=== PATIENT | male | born 1960 | race Caucasian/White ===

== ENCOUNTER → 2019-12-18 | Outpatient (REF) | payer OTHER, MEDICAID ==
[2019-12-18 18:46] LABS: BASO % 0.6 % (0.0-1.0); EOS # 0.1 10^3/uL (0.0-0.5); EOS % 1.1 % (0.0-3.0); HEMATOCRIT 43.9 % (42.0-52.0); HEMOGLOBIN 14.4 g/dl (13.5-17.5); LYMPH # 1.4 10^3/uL (1.5-5.0); LYMPH % 19.7 % (24.0-44.0); MEAN CORPUSCULAR HEMOGLOBIN 30.3 pg (27.0-33.0); MEAN CORPUSCULAR HGB CONC 32.8 g/dl (32.0-36.5); MEAN CORPUSCULAR VOLUME 92.2 fl (80.0-96.0); MONO # 0.7 10^3/uL (0.0-0.8); MONO % 9.7 % (0.0-5.0); NEUTROPHILS # 4.9 10^3/uL (1.5-8.5); NEUTROPHILS % 68.6 % (36.0-66.0); PLATELET COUNT, AUTOMATED 246 10^3/uL (150-450); RED BLOOD COUNT 4.76 10^6/uL (4.30-6.10); WHITE BLOOD COUNT 7.1 10^3/uL (4.0-10.0)
[2019-12-18 18:56] LABS: ALBUMIN 3.9 GM/DL (3.2-5.2); BILIRUBIN,TOTAL 0.5 MG/DL (0.2-1.0); CALCIUM LEVEL 9.2 MG/DL (8.5-10.1); CHOLESTEROL RISK RATIO 3.684 (<5); CREATININE FOR GFR 1.38 MG/DL (0.70-1.30); GLOMERULAR FILTRATION RATE 56.5 (>56); POTASSIUM SERUM 3.7 MEQ/L (3.5-5.1); TOTAL PROTEIN 7.8 GM/DL (6.4-8.2)
[2019-12-18 19:10] LABS: HEMOGLOBIN A1c 8.4 %
[2019-12-18 21:22] LABS: TOTAL 25(OH) VITAMIN D 51.2 NG/ML (30.0-100.0)
== END ==
LOC: M LAB REF 17:22
PROVIDERS: ATTEND Physician Assistant
DX: E55.9 Vitamin D deficiency, unspecified (principal); E11.9 Type 2 diabetes mellitus without complications; I10 Essential (primary) hypertension

== ENCOUNTER 2020-08-01 13:02 | Inpatient (IN) | payer MEDICAID, OTHER ==
[2020-08-01] MEDS ORDERED: LIDOCAINE 2% 5ML JELLY UROJET TOP ONE (13:30)
--- NOTE | 2020-08-01 13:30 | REP ---
INDICATION: ams COMPARISON: None. TECHNIQUE: Axial noncontrast images from the skull base to the thoracic inlet with coronal reformations. This CT examination was performed using the following dose reduction techniques: Automated exposure control, adjustment of mA and/or kv according to the patient's size, and use of iterative reconstruction technique. FINDINGS: Age-related changes including periventricular leukomalacia appreciated. The ventricles and sulci are symmetric. Lawrence-white differentiation is maintained. There is no evidence for acute intracranial hemorrhage, mass/mass effect, pathology or infarction. No extra-axial fluid collection. Calvarium is intact. Paranasal sinuses and mastoid air cells are clear. IMPRESSION: Atrophy and microvascular ischemic changes. No acute intracranial hemorrhage, infarction, or mass/mass effect. <Electronically signed by Donato Yen > 08/01/20 [id number]
[2020-08-01 13:39] LABS: BASO % 0.2 % (0.0-1.0); HEMATOCRIT 42.2 % (42.0-52.0); HEMOGLOBIN 13.7 g/dl (13.5-17.5); LYMPH # 0.5 10^3/uL (1.5-5.0); LYMPH % 5.7 % (24.0-44.0); MEAN CORPUSCULAR HEMOGLOBIN 29.8 pg (27.0-33.0); MEAN CORPUSCULAR HGB CONC 32.5 g/dl (32.0-36.5); MEAN CORPUSCULAR VOLUME 91.9 fl (80.0-96.0); MONO # 0.6 10^3/uL (0.0-0.8); MONO % 6.4 % (2.0-8.0); NEUTROPHILS # 8.2 10^3/uL (1.5-8.5); NEUTROPHILS % 87.4 % (36.0-66.0); PLATELET COUNT, AUTOMATED 176 10^3/uL (150-450); RED BLOOD COUNT 4.59 10^6/uL (4.30-6.10); WHITE BLOOD COUNT 9.3 10^3/uL (4.0-10.0)
[2020-08-01] MEDS ORDERED: levETIRAcetam INJection 1,000 MG in D5W 100 ML IV ONE (14:05)
[2020-08-01 14:08] LABS: CK-MB VALUE MASS < 1.0 NG/ML (<3.6); CPK CREATINE PHOSPHOKINASE 63 U/L (39-308); MB/CK RELATIVE INDEX 1.59 (< OR =4); NT-PRO BNP 487 PG/ML (<125); TROPONIN I < 0.02 NG/ML (< 0.10)
[2020-08-01 14:17] LABS: AMPHETAMINES LEVEL URINE NEGATIVE (NEGATIVE); BARBITURATES URINE NEGATIVE (NEGATIVE); BENZODIAZEPINES URINE NEGATIVE (NEGATIVE); CANNABINOIDS URINE NEGATIVE (NEGATIVE); COCAINE METABOLITE URINE NEGATIVE (NEGATIVE); METHADONE URINE NEGATIVE (NEGATIVE); OPIATES URINE NEGATIVE (NEGATIVE); PHENCYCLIDINE URINE NEGATIVE (NEGATIVE)
[2020-08-01 14:17] LABS: ACETAMINOPHEN LEVEL < 2.0 UG/ML (10.0-30.0); ALBUMIN 3.1 GM/DL (3.2-5.2); ALT/SGPT 55 U/L (12-78); BILIRUBIN,DIRECT 0.2 MG/DL (0.0-0.2); BILIRUBIN,TOTAL 0.8 MG/DL (0.2-1.0); BLOOD UREA NITROGEN 12 MG/DL (7-18); CALCIUM LEVEL 8.6 MG/DL (8.5-10.1); CARBON DIOXIDE LEVEL 31 MEQ/L (21-32); CHLORIDE LEVEL 95 MEQ/L (98-107); CREATININE FOR GFR 1.11 MG/DL (0.70-1.30); ETHYL ALCOHOL (ETHANOL) < 0.003 % (0.000-0.010); GLOMERULAR FILTRATION RATE > 60.0 (>56); GLUCOSE, FASTING 465 MG/DL (70-100); POTASSIUM SERUM 3.3 MEQ/L (3.5-5.1); SODIUM LEVEL 136 MEQ/L (136-145); TOTAL PROTEIN 6.6 GM/DL (6.4-8.2)
[2020-08-01] MEDS ORDERED: LORazepam 2 MG/ML VIAL IV STA (14:21)
[2020-08-01] MEDS ORDERED: LORazepam 2 MG/ML VIAL As Ordered ONE (14:23)
[2020-08-01] MEDS ORDERED: METF10004 PO (14:35)
[2020-08-01] MEDS ORDERED: TORS20TA2 PO (14:35)
[2020-08-01] MEDS ORDERED: TRIA75TA PO (14:35)
[2020-08-01] MEDS ORDERED: VITA200044 PO (14:35)
[2020-08-01] MEDS ORDERED: METO1TAB33 PO (14:35)
[2020-08-01] MEDS ORDERED: ELIQ5TAB PO (14:35)
[2020-08-01] MEDS ORDERED: PANT40TA29 PO (14:35)
[2020-08-01] MEDS ORDERED: ATOR40TA75 PO (14:35)
--- NOTE | 2020-08-01 14:49 | REP ---
INDICATION: AMS COMPARISON: None. TECHNIQUE: Portable AP view of the chest FINDINGS: The mediastinum and cardiac silhouette are within normal limits for portable technique. The lung lu are clear without acute consolidation, effusion, or pneumothorax. Skeletal structures are intact. IMPRESSION: No acute cardiopulmonary process appreciated. <Electronically signed by Donato Yen > 08/01/20 [id number]
[2020-08-01] MEDS ORDERED: DEXTROSE 50% 50 ML SYRINGE IV PRN (16:20)
[2020-08-01] MEDS ORDERED: GLUCOSE 4GM CHEW TABLET PO PRN (16:20)
[2020-08-01] MEDS ORDERED: LORazepam 2 MG/ML VIAL IV PRN (16:20)
[2020-08-01] MEDS ORDERED: GLUCAGON INJ 1MG VIAL SC PRN (16:20)
[2020-08-01 16:30] VITALS: BP 147/85
[2020-08-01 16:50] VITALS: BP 147/85
[2020-08-01] MEDS ORDERED: POTASSIUM CHLORIDE 10 MEQ SR TABLET PO ONE (17:05)
[2020-08-01] MEDS: HumaLOG INSULIN (NovoLOG) PER UNIT SC SCH ×2 (17:53→21:25)
--- NOTE | 2020-08-01 18:19 | HPEPDOC ---
General Date of Admission Aug 01, 2020 at 13:03 Date of Service: Aug 01, 2020 Chief Complaint The patient is a 60-year-old male admitted with a reason for visit of New Onset Seizure. Source: Family, RN/MD History of Present Illness 60-year-old male with past medical history of diabetes, hypertension, hyperlipidemia, A. fib, congestive heart failure presented to the ED with 5 days history of altered mental status. On July 27 patient got his Moderna COVID vaccine since then son noticed him to be behaving abnormally. He was having a loopy behavior. Son felt that he was just tired. Son described that on the day he got his vaccine. He stooled in the kitchen for 2 hours looking at a bowl of mac & cheese. He described in this past few days, he would be talking normally and then suddenly he would not respond and stare at the lucas then come back to himself. Yesterday patient was talking with his sister on the phone and suddenly put down the phone and was staring straight ahead. Son picked up the phone and the patient's sister was still on the line talking. This morning son noticed that the patient's left side of the face was swollen. Patient told the son that he fell down at night. Patient also reported that he had "pissed" on the microwave and had "shit" on himself. Son checked the microwave and he did see a pool of liquid on on top of it. Son then called the EMS. EMS found his blood sugar to be 544. Son did not know if the patient was taking his medications or not. Patient was brought to the ED for altered mental status. As per EMS, patient had an absence seizure like episode in the ambulance. He just stopped talking and stared straight ahead did not respond, then within about 2 minutes he was back to his normal self. In the ED, he had 2 similar episodes when he stopped talking and looked to the left and then look to the right. His breathing stopped briefly and his pulse rate went up. He was admitted for multiple seizure episodes. I could not get much relevant history from the patient. He was talking during my interview and was able to tell me that he has diabetes and he takes water pills, so he has to urinate every 5 minutes and that he often has some fluid-filled blisters on his legs. He was keeping his eyes closed. He did follow commands, but he was rambling on about unrelated things also. He does not remember if he has been taking his medications are not. He had gotten Ativan in the emergency room. All the history is taken from ED physician and the from son. Home Medications Scheduled Apixaban (Eliquis) 5 Mg Tablet, 5 MG PO BID, (Reported) 0800/1700 Atorvastatin Calcium (Atorvastatin Calcium) 40 Mg Tablet, 40 MG PO QHS, (Reported) Cholecalciferol (Vitamin D3) (Vitamin D3) 50 Mcg Capsule, 50 MCG PO DAILY, (Reported) Metformin HCl (Metformin HCl) 1,000 Mg Tablet, 1,000 MG PO QPM, (Reported) Metoprolol Succinate (Metoprolol Succinate) 100 Mg Tab.er.24h, 100 MG PO QPM, (Reported) Pantoprazole Sodium (Pantoprazole Sodium) 40 Mg Tablet.dr, 40 MG PO BID, (Reported) 0800/1700 Torsemide (Torsemide) 20 Mg Tablet, 20 MG PO DAILY, (Reported) Triamterene/Hydrochlorothiazid (Triamterene-Hctz 75-50 mg Tab) 1 Each Tablet, 1 TAB PO DAILY, (Reported) Allergies Coded Allergies: No Known Allergies (Unverified , 08/01/20) Past Medical History Medical History Diabetes CHF HLD Irregular heart beat. Likely Afib HTN GERD Family History Significant Family History: Diabetes (sister and mother) Social History * Smoker: non-smoker Alcohol: Denies Drugs: denies A-FIB/CHADSVASC A-FIB History Current/History of A-Fib/PAF?: Yes Current PO Anticoag Therapy: Yes Review of Systems Constitutional: Denies: Chills, Fever, Night Sweats ENT: Reports: Other Symptoms (swelling of left side of face) Skin: Reports: Lesions (healed ulcers on the legs) Pulmonary: Denies: Dyspnea, Cough Cardiovascular: Reports: Edema; Denies: Chest Pain, Palpitations, Orthopnea, Paroxysmal Noc. Dyspnea, Lt Headedness Gastrointestinal: Denies: Nausea, Vomiting, Abdominal Pain, Diarrhea Genitourinary: Reports: Incontinence; Denies: Dysuria, Frequency, Retention Hematologic: Denies: Bruising, Bleeding Excessively Neurological: Reports: Confusion, Seizures Physical Examination General Exam: Positive: Cooperative, No Acute Distress, Other (confused) ENT Exam: Positive: Mucous membr. moist/pink, Other ENT (swelling of the left forehead and left cheeck) Neck Exam: Positive: Supple Chest Exam: Positive: Clear to auscultation, Normal air movement Heart Exam: Positive: Rate Normal, Regular Rhythm, Normal S1, Normal S2; Negative: Murmurs, Rubs Abdomen Exam: Positive: Normal bowel sounds, Soft, Other (obese); Negative: Tenderness Extremity Exam: Positive: Edema; Negative: Clubbing, Cyanosis Neuro Exam: Positive: Strength at 5/5 X4 ext, Normal Tone Vital Signs Vital Signs Date Time Temp Pulse Resp B/P (MAP) Pulse Ox O2 Delivery O2 Flow Rate FiO2 08/01/20 16:30 98.2 92 18 147/85 (105) 96 Room Air Laboratory Data Labs 24H Laboratory Tests 2 08/01/20 13:20: Bedside Glucose (Misc Panel) 481H 08/01/20 13:29: Immature Granulocyte % (Auto) 0.3, Neutrophils (%) (Auto) 87.4H, Lymphocytes (%) (Auto) 5.7L, Monocytes (%) (Auto) 6.4, Eosinophils (%) (Auto) 0.0, Basophils (%) (Auto) 0.2, Neutrophils # (Auto) 8.2, Lymphocytes # (Auto) 0.5L, Monocytes # (Auto) 0.6, Eosinophils # (Auto) 0.0, Basophils # (Auto) 0.0, Nucleated Red Blood Cells % (auto) 0.0, POC pH (Misc Panel) 7.449, POC Base Excess (Misc Panel) 7.0H, POC Saturated Percent O2 (Misc) 100H, POC pO2 (Misc Panel) 281.0H, POC pCO2 (Misc Panel) 44.3, POC HCO3 (Misc Panel) 30.7H, POC Total CO2 (Misc Panel) 32.0H, Anion Gap 10, Glomerular Filtration Rate > 60.0, Calcium Level 8.6, Total Bilirubin 0.8, Direct Bilirubin 0.2, Aspartate Amino Transf (AST/SGOT) 18, Alanine Aminotransferase (ALT/SGPT) 55, Alkaline Phosphatase 92, Total Creatine Kinase 63, Creatine Kinase MB < 1.0, Creatine Kinase MB Relative Index 1.59, Troponin I < 0.02, WG-Mgc-T-Type Natriuretic Peptide 487H, Total Protein 6.6, Albumin 3.1L, Albumin/Globulin Ratio 0.9, Thyroid Stimulating Hormone (TSH) 1.520, Acetaminophen Level < 2.0L, Ethyl Alcohol Level < 0.003 08/01/20 13:35: Urine Color STRAW, Urine Appearance CLEAR, Urine pH 5.0, Urine Specific [place] 1.039, Urine Protein 2+H, Urine Glucose (UA) 3+H, Urine Ketones TRACEH, Urine Blood 1+H, Urine Nitrite NEGATIVE, Urine Bilirubin NEGATIVE, Urine Urobilinogen 0.2, Urine Leukocyte Esterase NEGATIVE, Urine WBC (Auto) 1, Urine RBC (Auto) 1, Urine Hyaline Casts (Auto) 0, Urine Bacteria (Auto) NEGATIVE, Urine Squamous Epithelial Cells 0, Urine Mucus (Auto) SMALL, Urine Sperm (Auto) , Urine Opiates Screen NEGATIVE, Urine Methadone Screen NEGATIVE, Urine Barbiturates Screen N EGATIVE, Urine Phencyclidine Screen NEGATIVE, Urine Amphetamines Screen NEGATIVE, Urine Benzodiazepines Screen NEGATIVE, Urine Cocaine Metabolite Screen NEGATIVE, Urine Cannabinoids Screen NEGATIVE 08/01/20 16:43: Bedside Glucose (Misc Panel) 412H CBC/BMP Laboratory Tests 08/01/20 13:29 Microbiology Microbiology 08/01/20 Respiratory Virus Panel (PCR) (JANINA) - Final, Complete Assessment/Plan 60-year-old male with past medical history of diabetes, hypertension, hyperlipidemia, A. fib, congestive heart failure presented to the ED with 5 days history of altered mental status. On July 27 patient got his Moderna COVID vaccine since then son noticed him to be behaving abnormally. He was having a loopy behavior. Son felt that he was just tired. Son described that on the day he got his vaccine. He stooled in the kitchen for 2 hours looking at a bowl of mac & cheese. He described in this past few days, he would be talking normally and then suddenly he would not respond and stare at the lucas then come back to himself. Yesterday patient was talking with his sister on the phone and suddenly put down the phone and was staring straight ahead. Son picked up the phone and the patient's sister was still on the line talking. This morning son noticed that the patient's left side of the face was swollen. Patient told the son that he fell down at night. Patient also reported that he had "pissed" on the micro wave and had "shit" on himself. Son checked the microwave and he did see a pool of liquid on on top of it. Son then called the EMS. EMS found his blood sugar to be 544. Son did not know if the patient was taking his medications or not. Patient was brought to the ED for altered mental status. As per EMS, patient had an absence seizure like episode in the ambulance. He just stopped talking and stared straight ahead did not respond, then within about 2 minutes he was back to his normal self. In the ED, he had 2 similar episodes when he stopped talking and looked to the left and then look to the right. His breathing stopped briefly and his pulse rate went up. He was admitted for multiple seizure episodes. Multiple short Absence seizure like episodes With acute metabolic encephalopathy, post ictal No tonic-clonic activity seen Received Keppra and and Ativan in the ED after coming up to the floor. He had another episode Started him on valproate 500mg bid This plan was discussed with Dr. Morel by the ED physician and Me Ordered for EEG and MRI CT head negative Diabetes Sugar uncontrolled. Likely patient was not taking his medications Will give Levemir and lispro Fingersticks before meals and HS Hypertension Continue medical Likely congestive heart failure Will hold diuretics for the present likely a fib Will continue metoprolol and eliquis Will have to get the history from PMDs office Plan / VTE VTE Prophylaxis Ordered?: Yes TEJAS BECKHAM MD Aug 01, 2020 18:19
[2020-08-01] MEDS: KCL 10MEQ/100ML SWI (KRUN) 10 MEQ in IV 1 EA IV SCH ×2 (18:51→20:05)
[2020-08-01] MEDS ORDERED: PHENYTOIN 100 MG/2 ML VIAL (J1165) IV SCH (19:00)
[2020-08-01] MEDS: PANTOPRAZOLE 40MG TAB (PROTONIX) PO SCH (21:00)
[2020-08-01] MEDS: ATORVASTATIN 20 MG TAB PO SCH (21:00)
[2020-08-01] MEDS: LEVEMIR (INSULIN DETEMIR) 1 UNITS/0.01ML SC SCH ×2 (21:00→22:23)
[2020-08-01] MEDS ORDERED: APIXABAN 5 MG TAB (ELIQUIS) PO SCH (21:00)
[2020-08-01] MEDS: METOPROLOL SUCC (TopROL XL) 100MG *XL* TAB PO SCH (21:00)
[2020-08-01] MEDS: VALPROATE SOD INJ 500 MG in D5W 50 ML IV SCH (21:11)
[2020-08-01 22:00] VITALS: BP 149/85
--- NOTE | 2020-08-01 22:05 | ECGEPIP ---
[facility] - ED Test Date: 2020-08-01 Pat Name: CARLY SIMON Department: Room: - Gender: Male Public Policy Mediator: TAY : 1960 Requested By: Camilo Godoy Order Number: [id number] Reading MD: Corrine Dockery Measurements Intervals Allen Rate: 95 P: 51 AL: 126 QRS: 42 QRSD: 82 T: 33 QT: 360 QTc: 452 Interpretive Statements Normal sinus rhythm Nonspecific ST abnormality No prior Electronically Signed on 08-01-2020 22:05:42 EDT by Corrine Dockery
[2020-08-01 22:45] LABS: HEMATOCRIT 42.2 % (42.0-52.0); HEMOGLOBIN 13.7 g/dl (13.5-17.5); MEAN CORPUSCULAR HGB CONC 32.5 g/dl (32.0-36.5); MEAN CORPUSCULAR VOLUME 92.3 fl (80.0-96.0); PLATELET COUNT, AUTOMATED 167 10^3/uL (150-450); RED BLOOD COUNT 4.57 10^6/uL (4.30-6.10); WHITE BLOOD COUNT 8.9 10^3/uL (4.0-10.0)
[2020-08-01 23:13] LABS: BLOOD UREA NITROGEN 11 MG/DL (7-18); CALCIUM LEVEL 9.1 MG/DL (8.5-10.1); CARBON DIOXIDE LEVEL 34 MEQ/L (21-32); CHLORIDE LEVEL 101 MEQ/L (98-107); CREATININE FOR GFR 0.88 MG/DL (0.70-1.30); GLOMERULAR FILTRATION RATE > 60.0 (>56); GLUCOSE, FASTING 171 MG/DL (70-100); POTASSIUM SERUM 3.3 MEQ/L (3.5-5.1); SODIUM LEVEL 140 MEQ/L (136-145)
--- NOTE | 2020-08-01 23:47 | REPVR ---
PROCEDURE INFORMATION: Exam: CT Maxillofacial Without Contrast Exam date and time: 08/01/2020 11:12 PM Age: 60 years old Clinical indication: Face pain; Additional info: Swelling on left face, tender to touch, abscess? TECHNIQUE: Imaging protocol: Computed tomography images of the face without contrast. Radiation optimization: All CT scans at this facility use at least one of these dose optimization techniques: automated exposure control; mA and/or kV adjustment per patient size (includes targeted exams where dose is matched to clinical indication); or iterative reconstruction. COMPARISON: No relevant prior studies available. FINDINGS: Orbital cavity: Orbits are normal. Globes are unremarkable. Bones/joints: No acute fracture. Paranasal sinuses: See "Soft tissues" finding. Soft tissues: Edema in the left periorbital region and in left pre maxillary space. No fluid collections mucosal thickening of bilateral maxillary sinuses. Dental: Periodontal disease. IMPRESSION: Edema in the left pre maxillary space and periorbital region. No fluid collections/abscess. Periodontal disease. Electronically signed by: Otoniel Russo On 08/01/2020 23:47:04 PM
[2020-08-02] MEDS: levETIRAcetam INJection 1,000 MG in D5W 100 ML IV SCH ×2 (02:00→14:44)
[2020-08-02 06:00] VITALS: BP 128/84
[2020-08-02 06:15] LABS: VALPROIC ACID (DEPAKOTE) 19.1 UG/ML (50.0-100.0)
[2020-08-02] MEDS: HumaLOG INSULIN (NovoLOG) PER UNIT SC SCH ×4 (07:30→22:20)
[2020-08-02 07:57] LABS: BLOOD UREA NITROGEN 10 MG/DL (7-18); CALCIUM LEVEL 8.5 MG/DL (8.5-10.1); CARBON DIOXIDE LEVEL 31 MEQ/L (21-32); CHLORIDE LEVEL 102 MEQ/L (98-107); CREATININE FOR GFR 0.76 MG/DL (0.70-1.30); GLOMERULAR FILTRATION RATE > 60.0 (>56); GLUCOSE, FASTING 180 MG/DL (70-100); SODIUM LEVEL 140 MEQ/L (136-145)
[2020-08-02 08:12] LABS: BASO % 0.2 % (0.0-1.0); EOS # 0.1 10^3/uL (0.0-0.5); EOS % 0.7 % (0.0-3.0); HEMATOCRIT 40.2 % (42.0-52.0); HEMOGLOBIN 12.9 g/dl (13.5-17.5); LYMPH # 1.2 10^3/uL (1.5-5.0); LYMPH % 14.4 % (24.0-44.0); MEAN CORPUSCULAR HEMOGLOBIN 29.9 pg (27.0-33.0); MEAN CORPUSCULAR HGB CONC 32.1 g/dl (32.0-36.5); MEAN CORPUSCULAR VOLUME 93.1 fl (80.0-96.0); MONO # 0.8 10^3/uL (0.0-0.8); MONO % 9.5 % (2.0-8.0); NEUTROPHILS # 6.1 10^3/uL (1.5-8.5); NEUTROPHILS % 74.7 % (36.0-66.0); PLATELET COUNT, AUTOMATED 157 10^3/uL (150-450); RED BLOOD COUNT 4.32 10^6/uL (4.30-6.10); WHITE BLOOD COUNT 8.2 10^3/uL (4.0-10.0)
[2020-08-02] MEDS ORDERED: ENOXAPARIN 40MG/0.4ML SYRINGE (J1650 PER 10MG) SC SCH (08:15)
[2020-08-02] MEDS: VALPROATE SOD INJ 500 MG in D5W 50 ML IV SCH ×2 (08:30→22:20)
[2020-08-02] MEDS: PANTOPRAZOLE 40MG TAB (PROTONIX) PO SCH (08:32)
[2020-08-02] MEDS ORDERED: TORSEMIDE 20 MG TAB PO SCH (09:00)
[2020-08-02] MEDS ORDERED: MAXZIDE 75/50 TABLET PO SCH (09:00)
[2020-08-02 09:16] LABS: INR 1.01; PROTHROMBIN TIME 13.5 SECONDS (12.5-14.3)
[2020-08-02 09:17] LABS: PARTIAL THROMBOPLASTIN TIME 26.8 SECONDS (24.2-38.5)
[2020-08-02] MEDS: PANTOPRAZOLE 40MG VIAL (C9113 PER 1) IV SCH (10:09)
[2020-08-02] MEDS: KCL 40MEQ IN D5/NS 1000ML 1,000 ML IV SCH ×2 (10:10→17:57)
[2020-08-02 14:00] VITALS: BP 130/84
[2020-08-02] MEDS ORDERED: HEPARIN SOD (PORCINE) 5000UNITS/ML 1ML VIAL/SYRINGE IV PRN (15:05)
--- NOTE | 2020-08-02 15:06 | IPNPDOC ---
Text Note Date of Service The patient was seen on 08/02/20. NOTE Subjective: On examination, pt is difficult to arouse and falls asleep during examination. He has a difficult time staying awake, making it difficult to get a history from pt. Pt reports that he has had weakness to his b/l legs where his knees give out causing him to fall. He states that he feels more sleepy and confused than he normally does. In regards to the swelling on the L side of his face, pt reports that it is due to an abscessed tooth on his L side. Pt denies any recent changes in medications. Pt family was contacted for further history. Pt sister states that she was called and informed about his condition yesterday. She states that she was on the phone with pt when pt just stopped talking. Her nephew, pt son, then talked to her on the phone stating that pt was having an episode of staring and drooling, at which time pt son called EMS. Upon talking to pt son, he states that sx started the day pt received his first Moderna COVID vaccination on 07/27/20. Pt did well soon after vaccination and was able to go shopping with son. Son first noticed pt standing in the kitchen and staring at the wall but did not think anything of it. He then later came back into the room 40 minutes later and pt was still there staring at the wall. Another hour later pt son noticed that pt was still standing in the same spot and tried to talk to him but pt was not responding. Son states that pt was in that state for two hours before "coming out of it". Pt has had several similar episodes during the past 5-6 days of staring and not responding. Son has not n oticed any shaking or tremors during these events but notes that he has noticed pt hands shaking as he comes out of these episodes. Pt also has slurred/garbled speech after these episodes and appears confused. Son states that pt does not seem to remember/recall these episodes happening. Pt has also had two episodes of falling causing bruising to his back but does not believe pt had any head injury. Son reports that pt has not been taking his medications as prescribed and does not check his blood glucose at home. Son states that pt has been complaining of "one large pill" being difficult to swallow and causing nausea recently. Pt has also been having decreased appetite and complains that the food does not taste good for the past few weeks. No weight loss has been noted by son. He also reports that pt seems to be more forgetful prior to getting his COVID vaccination. Pt has been forgetting what he was doing and forgetting what he was talking about in the middle of his sentence. In addition, pt has not been sleeping well and son has found pt sleeping on the toilet on several occasions. Pt has hx of sleep apnea but does not use a CPAP machine at home. In regards to family hx, son reports that gastric cancer and DM runs in the family. For social hx, pt quit smoking years ago and has not had EtOH for years. Pt does however, smoke marijuana, last used 2 weeks ago. Pt is currently unemployed due to lay offs during COVID. Objective: VITALS: See below. GENERAL: Pt is laying in bed and is difficult to arouse. It appears that he has difficulty staying awake and has to be shaken awake on multiple occasions. HEENT: Pt has edema to the L side of his face with tenderness to palpation. Edema from L eyelid to L mandible appreciated. PERRLA. EOMI. Tongue midline. CARDIOVASCULAR: Regular rate. Irregularly irregular. No murmurs, rubs, or gallops appreciated. PULMONARY: Good breath sounds bilaterally. No wheezes, rales, or rhonchi. ABD: Normoactive bowel sounds to all four quadrants. Mild discomfort with palpation. EXTREMITIES: 2+ pitting edema to BLE up to mid pike. Area of scabbing and erythema to R lower extremity. Does not appear cellulitic and pt reports that it has been there "for a while". NEURO: CN III-XII intact. Sensations intact. Strength intact. Pt had an episode of the absence seizure during examination and was not responding to painful stimuli but had response to corneal reflex and was able to stop his arm from dropping onto his face. Once this episode was over pt was able to respond to questions but appeared confused . Imaging: Heat CT (08/01/20) Atrophy and microvascular ischemic changes. No acute intracranial hemorrhage, infarction, or mass/mass effect. CXR (08/01/20) No acute cardiopulmonary process appreciated. Maxillofacial CT (08/01/20) Edema in the left pre maxillary space and periorbital region. No fluid collections/abscess. Peridontal disease. Assessment/Plan: Pt is a 60 year old male with PMH of DM, HTN, HLD, A fib, CHF who presented to the ED with 5 day hx of altered mental status. Pt had his first Moderna COVID vaccination on July 27, 2020 and his sx began later that evening. Son reports that pt had an episode of 2 hours of "staring into space" the evening of his COVID vaccination. Since then pt has had multiple similar episodes. He more recently had episodes of urinary incontinence that prompted pt son to call EMS. EMS reported that pt had another episode of absence seizure like episode en route to the ED and was responsive after the event was over. Pt was admitted for multiple episodes of absence seizure, new onset. #New onset multiple short absence seizure like episodes - Pt has had multiple episodes of absence seizures where pt would stare off into space and does not respond to questions or stimulus. Pt comes out of these episodes slightly confused but regains normal mental status shortly thereafter. - Pt received Keppra and Ativan in the ED after having another episode. - No tonic clonic activity reported by EMS, pt son. No tonic clonic activity noted when pt had one of these episodes during examination. - ED physician discussed pt case with Dr. Morel who agrees with plan for Valproate 500 mg BID. EEG and MRI ordered. CT head negative. EEG to be done today. - MRI was canceled due to pt having clips in his stomach and hardware in his back. - Plan to continue Valproate on discharge. - Keppra 1g Q12H ordered. - Ativan 2 mg ordered PRN. - Pt placed on seizure precautions. - PO meds have been changed to IV medications due to concerns of aspiration as pt falls asleep and is confused during examination. - Will have pt follow up with neurology outpatient. - Speech therapy and swallow evaluation ordered. #Hypokalemia - Pt K was 3.3 on admission and was given 2 K runs. - Repeat K was lower at 3 so another K run was started. - Will monitor and replete as necessary. - No chest pain or palpitations complained by pt. #DM - Blood glucose was uncontrolled at 544 en route to ED. Pt reports not taking his medications consistently. - A1c ordered and pending. - Consistent carb diet. - Sliding scale insulin with hypoglycemic protocol in place. #Hx of CHF - Holding home diuretics at this time. #A-fib - Continue home Metoprolol. - Eliquis switched to Heparin as pt is not awake enough for PO meds. DVT prophylaxis: Heparin. Disposition: Pending clinical improvement. VS,Fishbone, I+O VS, Fishbone, I+O Laboratory Tests 08/01/20 13:29 08/01/20 22:35 08/02/20 05:24 08/02/20 05:27 Vital Signs Date Time Temp Pulse Resp B/P (MAP) Pulse Ox O2 Delivery O2 Flow Rate FiO2 08/02/20 06:00 98.4 84 18 128/84 (99) 94 Nasal Cannula 2.0 I&O- Last 24 Hours up to 6 AM 08/02/20 06:00 Intake Total 625 ml Output Total 400 ml Balance 225 ml GME ATTESTATION GME ATTESTATION My faculty preceptor for this patient encounter was physically present during the encounter and was fully available. All aspects of the patient interview, examination, medical decision making process, and medical care plan development were reviewed and approved by the faculty preceptor. The faculty preceptor is aware and concurs with the plan as stated in the body of this note and will attest to such by his/her cosignature. Klarissa AVILA S-3 Aug 02, 2020 12:13
[2020-08-02 15:59] LABS: HEMOGLOBIN A1c 13.9 %
[2020-08-02] MEDS ORDERED: HEPARIN SOD (PORCINE) 5000UNITS/ML 1ML VIAL/SYRINGE IV ONE (16:00)
[2020-08-02] MEDS: HEPARIN DRIP 25,000 UNITS in IV 1 EA IV SCH (16:27)
[2020-08-02] MEDS: ATORVASTATIN 20 MG TAB PO SCH (21:00)
[2020-08-02 22:00] VITALS: BP 129/85
[2020-08-02] MEDS: LEVEMIR (INSULIN DETEMIR) 1 UNITS/0.01ML SC SCH (22:20)
[2020-08-02] MEDS: METOPROLOL SUCC (TopROL XL) 100MG *XL* TAB PO SCH (22:25)
[2020-08-02 23:42] LABS: INR 1.07; PROTHROMBIN TIME 14.2 SECONDS (12.5-14.3)
[2020-08-03] MEDS: levETIRAcetam INJection 1,000 MG in D5W 100 ML IV SCH ×2 (02:46→15:01)
[2020-08-03] MEDS: KCL 40MEQ IN D5/NS 1000ML 1,000 ML IV SCH ×2 (04:00→08:50)
[2020-08-03 06:00] VITALS: BP 125/80
[2020-08-03 06:20] LABS: BASO % 0.4 % (0.0-1.0); EOS # 0.1 10^3/uL (0.0-0.5); EOS % 0.9 % (0.0-3.0); HEMATOCRIT 40.6 % (42.0-52.0); HEMOGLOBIN 12.9 g/dl (13.5-17.5); LYMPH % 17.5 % (24.0-44.0); MEAN CORPUSCULAR HEMOGLOBIN 29.9 pg (27.0-33.0); MEAN CORPUSCULAR HGB CONC 31.8 g/dl (32.0-36.5); MEAN CORPUSCULAR VOLUME 94.2 fl (80.0-96.0); MONO # 0.5 10^3/uL (0.0-0.8); MONO % 8.9 % (2.0-8.0); NEUTROPHILS # 4.1 10^3/uL (1.5-8.5); NEUTROPHILS % 71.9 % (36.0-66.0); PLATELET COUNT, AUTOMATED 150 10^3/uL (150-450); RED BLOOD COUNT 4.31 10^6/uL (4.30-6.10); WHITE BLOOD COUNT 5.7 10^3/uL (4.0-10.0)
[2020-08-03 06:44] LABS: BLOOD UREA NITROGEN 8 MG/DL (7-18); CALCIUM LEVEL 8.3 MG/DL (8.5-10.1); CARBON DIOXIDE LEVEL 30 MEQ/L (21-32); CHLORIDE LEVEL 110 MEQ/L (98-107); CREATININE FOR GFR 0.86 MG/DL (0.70-1.30); GLOMERULAR FILTRATION RATE > 60.0 (>56); GLUCOSE, FASTING 172 MG/DL (70-100); POTASSIUM SERUM 3.5 MEQ/L (3.5-5.1); SODIUM LEVEL 145 MEQ/L (136-145)
[2020-08-03 07:45] LABS: INR 0.98; PROTHROMBIN TIME 13.2 SECONDS (12.5-14.3)
[2020-08-03 07:46] LABS: PARTIAL THROMBOPLASTIN TIME 70.1 SECONDS (24.2-38.5)
[2020-08-03 08:15] VITALS: BP 136/79
[2020-08-03] MEDS: HumaLOG INSULIN (NovoLOG) PER UNIT SC SCH ×4 (08:50→22:16)
[2020-08-03] MEDS: HEPARIN DRIP 25,000 UNITS in IV 1 EA IV SCH (08:56)
[2020-08-03] MEDS: PANTOPRAZOLE 40MG VIAL (C9113 PER 1) IV SCH (09:19)
[2020-08-03] MEDS: VALPROATE SOD INJ 500 MG in D5W 50 ML IV SCH ×2 (09:20→22:16)
--- NOTE | 2020-08-03 11:04 | IPNPDOC ---
Text Note Date of Service The patient was seen on 08/03/20. NOTE Subjective: Overnight, pt had pulled out two IV's. RN's report that pt had 5-6 episodes of his absence seizure like activity. Otherwise, this morning pt is much more awake and oriented than he was yesterday. He is able to answer questions without difficulty, although he does keep his eyes closed through most of the exam. He states that he is unsure as to why he has been admitted and does not remember the absence seizure like activity. In regards to his leg weakness, he states that this is chronic for him after a back injury in the past. Objective: VITALS: See below. GENERAL: Pt is laying in bed, comfortably at rest. Pt is easily arousable and is able to answer questions without difficulty. HEENT: Pt has edema to the L side of his face with tenderness to palpation. Edema from L eyelid to L mandible appreciated. PERRLA. EOMI. CARDIOVASCULAR: Regular rate. Irregularly irregular. No murmurs, rubs, or gallops appreciated. PULMONARY: Good breath sounds bilaterally. No wheezes, rales, or rhonchi. ABD: Normoactive bowel sounds to all four quadrants. Mild discomfort with palpation. EXTREMITIES: 2+ pitting edema to BLE up to mid pike. Area of scabbing and erythema to R lower extremity. Does not appear cellulitic and pt reports that it has been there "for a while". NEURO: Sensations intact. Strength intact and 5/5 in all four extremities. Pt is alert and is able to answer questions without difficulty. Much more alert than yesterday. Imaging: Heat CT (08/01/20) Atrophy and microvascular ischemic changes. No acute intracranial hemorrhage, infarction, or mass/mass effect. CXR (08/01/20) No acute cardiopulmonary process appreciated. Maxillofacial CT (08/01/20) Edema in the left pre maxillary space and periorbital region. No fluid collections/abscess. Peridontal disease. Assessment/Plan: Pt is a 60 year old male with PMH of DM, HTN, HLD, A fib, CHF who presented to the ED with 5 day hx of altered mental status. Pt had his first Moderna COVID vaccination on July 27, 2020 and his sx began later that evening. Son reports that pt had an episode of 2 hours of "staring into space" the evening of his COVID vaccination. Since then pt has had multiple similar episodes. He more recently had episodes of urinary incontinence that prompted pt son to call EMS. EMS reported that pt had another episode of absence seizure like episode en route to the ED and was responsive after the event was over. Pt was admitted for multiple episodes of absence seizure, new onset. #New onset multiple short absence seizure like episodes - Pt has had multiple episodes of absence seizures where pt would stare off into space and does not respond to questions or stimulus. Pt comes out of these episodes slightly confused but regains normal mental status shortly thereafter. - ED physician discussed pt case with Dr. Morel who agrees with plan for Valproate 500 mg BID. EEG and MRI ordered. CT head negative. EEG was done yesterday and results are pending. Will consult neurology and have patient follow up on an outpatient basis. - Spoke with Dr. Mariano, neurologist, regarding EEG. He reports that patient had two episodes of seizures recorded on EEG. - MRI was canceled due to pt having clips in his stomach and hardware in his back. - Plan to continue Valproate on discharge. - Keppra 1g Q12H ordered. Ativan 2 mg ordered PRN. - Pt placed on seizure precautions. - As patient is much more awake now, will switch Heparin to PO Eliquis. - Will have pt follow up with neurology outpatient. - Speech therapy and swallow evaluation ordered. #Hypokalemia - resolved - Pt K was 3.3 on admission and was given 2 K runs. Repeat K was lower at 3 so another K run was started. Currently, pt K is WNL at 3.5. - Will continue to monitor and replete as necessary. - No chest pain or palpitations complained by pt. #DM - Blood glucose was uncontrolled at 544 en route to ED. Pt reports not taking his medications consistently. - A1c elevated at 13.9. It appears that patient has not been taking his medications consistently. Will have patient follow up with PCP outpatient. - Consistent carb diet here. - Sliding scale insulin with hypoglycemic protocol in place. #Hx of CHF - Holding home diuretics at this time. #A-fib - Continue home Metoprolol. - Eliquis switched to Heparin as pt is not awake enough for PO meds. DVT prophylaxis: Eliquis. Disposition: Pending clinical improvement. VS,Rosa Isela, I+O VS, Fishbone, I+O Laboratory Tests 08/03/20 05:49 Vital Signs Date Time Temp Pulse Resp B/P (MAP) Pulse Ox O2 Delivery O2 Flow Rate FiO2 08/03/20 08:15 97.8 81 18 136/79 (98) 95 Nasal Cannula 2.0 I&O- Last 24 Hours up to 6 AM 08/03/20 05:59 Intake Total 50 ml Output Total 0 ml Balance 50 ml GME ATTESTATION GME ATTESTATION My faculty preceptor for this patient encounter was physically present during the encounter and was fully available. All aspects of the patient interview, examination, medical decision making process, and medical care plan development were reviewed and approved by the faculty preceptor. The faculty preceptor is aware and concurs with the plan as stated in the body of this note and will attest to such by his/her cosignature. Klarissa AVILA Adiel-3 Aug 03, 2020 11:04
[2020-08-03] MEDS: APIXABAN 5 MG TAB (ELIQUIS) PO SCH ×2 (11:41→21:00)
[2020-08-03 13:23] VITALS: BP 126/76
--- NOTE | 2020-08-03 13:37 | EEG ---
ELECTROENCEPHALOGRAM DATE: 08/02/2020 DIAGNOSIS: Seizure. EEG# [id number]. REFERRING PHYSICIAN: Robin Portillo M.D. HISTORY: Patient is a 60-year-old man who was admitted at [facility] due to seizures. The patient has a five day history of altered mental status. He had Moderna COVID vaccine on 07/27/2020 and was noted to have abnormal behavior. Her had absence seizure-like episodes in the ambulance, then two episodes in the emergency department, he had two episodes during the first part of this EEG, and two more towards the latter part of this EEG. These episodes as described as head turning to the left side holding breath, eyes wide open, and unresponsiveness. He was starring off with eyes wide open. TECHNICAL DESCRIPTION: This digital EEG was recorded by 21-scalp, ear, and two EKG electrodes and was reviewed in bipolar and referential montages following reformatting in 10-20 international electrode placement system. INTERPRETATION: Patient was noted to be in awake and drowsy states during this EEG. Resting and awake background rhythm consisted of well-formed posterior dominant rhythm with anterior-posterior gradient comprising of 9 Hz alpha activity measuring 15-40 microvolts in amplitude, which was symmetric and reactive to eye opening. Attenuation of posterior dominant rhythm was seen during transition into drowsiness. No sleep was achieved. Hyperventilation was not performed. Photic stimulation remained unremarkable. EKG revealed normal sinus rhythm. Two seizures were captured. Electrographic discharges started in the right frontal head region with spread and evolution to right parietal, temporal, and occipital head region lasting for 100-120 seconds followed by postictal delta slowing. The left side was obscured by muscle twitching and muscle artifact. CONCLUSION: This EEG in awake and drowsy states is abnormal due to presence of two clinical and electrographic seizures arising in the right frontal head region with spread to right temporal, parietal, and occipital head region. Clinical correlation is recommended. [facility]
[2020-08-03] MEDS: METOPROLOL SUCC (TopROL XL) 100MG *XL* TAB PO SCH (21:00)
[2020-08-03] MEDS: ATORVASTATIN 20 MG TAB PO SCH (21:00)
[2020-08-03 22:00] VITALS: BP 122/80
[2020-08-04] MEDS: levETIRAcetam INJection 1,000 MG in D5W 100 ML IV SCH ×2 (02:44→15:38)
[2020-08-04 05:42] LABS: BASO % 0.5 % (0.0-1.0); EOS # 0.1 10^3/uL (0.0-0.5); HEMATOCRIT 40.4 % (42.0-52.0); HEMOGLOBIN 12.8 g/dl (13.5-17.5); LYMPH # 1.2 10^3/uL (1.5-5.0); LYMPH % 20.1 % (24.0-44.0); MEAN CORPUSCULAR HEMOGLOBIN 30.5 pg (27.0-33.0); MEAN CORPUSCULAR HGB CONC 31.7 g/dl (32.0-36.5); MEAN CORPUSCULAR VOLUME 96.2 fl (80.0-96.0); MONO # 0.7 10^3/uL (0.0-0.8); MONO % 12.1 % (2.0-8.0); NEUTROPHILS # 3.8 10^3/uL (1.5-8.5); PLATELET COUNT, AUTOMATED 155 10^3/uL (150-450); WHITE BLOOD COUNT 5.7 10^3/uL (4.0-10.0)
[2020-08-04 06:00] VITALS: BP 134/84
[2020-08-04 06:51] LABS: BLOOD UREA NITROGEN 10 MG/DL (7-18); CALCIUM LEVEL 8.2 MG/DL (8.5-10.1); CARBON DIOXIDE LEVEL 27 MEQ/L (21-32); CHLORIDE LEVEL 109 MEQ/L (98-107); CREATININE FOR GFR 0.75 MG/DL (0.70-1.30); GLOMERULAR FILTRATION RATE > 60.0 (>56); GLUCOSE, FASTING 170 MG/DL (70-100); POTASSIUM SERUM 3.4 MEQ/L (3.5-5.1); SODIUM LEVEL 143 MEQ/L (136-145)
[2020-08-04] MEDS ORDERED: POTASSIUM CHLORIDE 10 MEQ SR TABLET PO ONE ×2 (07:45→09:00)
[2020-08-04] MEDS: VALPROATE SOD INJ 500 MG in D5W 50 ML IV SCH ×2 (08:02→21:13)
[2020-08-04] MEDS: APIXABAN 5 MG TAB (ELIQUIS) PO SCH ×2 (08:02→21:10)
[2020-08-04] MEDS: PANTOPRAZOLE 40MG VIAL (C9113 PER 1) IV SCH (08:02)
[2020-08-04] MEDS: HumaLOG INSULIN (NovoLOG) PER UNIT SC SCH ×4 (08:03→21:14)
[2020-08-04] MEDS ORDERED: LACOSAMIDE 10MG/ML 20ML VIAL (VIMPAT) IV SCH (12:25)
[2020-08-04 14:00] VITALS: BP 125/82
--- NOTE | 2020-08-04 16:59 | IPNPDOC ---
Text Note Date of Service The patient was seen on 08/04/20. NOTE Subjective: Overnight, pt had 4 episodes of seizures per RN. RN reports that pt kept getting out of bed to go to the restroom without assistance so a sitter had to be placed with pt. Otherwise, pt states that he feels much more at baseline. Denies any headaches or visual changes. Pt is eating and drinking without difficulty. Pt was started on PO Eliquis 5 mg yesterday and has been tolerating that well. Objective: VITALS: See below. GENERAL: Pt is laying in bed, comfortably at rest. Pt is easily arousable and is able to answer questions without difficulty, much more alert than yesterday. HEENT: Pt has edema to the L side of his face with tenderness to palpation. Edema from L eyelid to L mandible appreciated. PERRLA. EOMI. CARDIOVASCULAR: Regular rate, regular rhythm on auscultation. No murmurs, rubs, or gallops appreciated. PULMONARY: Good breath sounds bilaterally. No wheezes, rales, or rhonchi. ABD: Normoactive bowel sounds to all four quadrants. Mild discomfort with palpation. EXTREMITIES: 2+ pitting edema to BLE up to mid pike. Area of scabbing and erythema to R lower extremity. Does not appear cellulitic and pt reports that it has been there "for a while". NEURO: Sensations intact. Pt is alert and is able to answer questions without difficulty. Much more alert than yesterday. Imaging: Heat CT (08/01/20) Atrophy and microvascular ischemic changes. No acute intracranial hemorrhage, infarction, or mass/mass effect. CXR (08/01/20) No acute cardiopulmonary process appreciated. Maxillofacial CT (08/01/20) Edema in the left pre maxillary space and periorbital region. No fluid collections/abscess. Peridontal disease. EEG Conclusion per Dr. Mariano (08/04/20): This EEG is awake and drowsy states is abnormal due to presence of two clinical and electrographic seizures arising in the right frontal head region with spread to right temporal, parietal, and occipital head region. Clinical correlation is recommended. Assessment/Plan: Pt is a 60 year old male with PMH of DM, HTN, HLD, A fib, CHF who presented to the ED with 5 day hx of altered mental status. Pt had his first Moderna COVID vaccination on July 27, 2020 and his sx began later that evening. Son reports that pt had an episode of 2 hours of "staring into space" the evening of his COVID vaccination. Since then pt has had multiple similar episodes. He more recently had episodes of urinary incontinence that prompted pt son to call EMS. EMS reported that pt had another episode of absence seizure like episode en route to the ED and was responsive after the event was over. Pt was admitted for multiple episodes of absence seizure, new onset. #New onset multiple short absence seizure like episodes - Pt has had multiple episodes of absence seizures where pt would stare off into space and does not respond to questions or stimulus. Pt comes out of these episodes slightly confused but regains normal mental status shortly thereafter. - EEG done showed presence of two clinical and electrographic seizures arising in the right frontal head region that spread to right temporal, parietal, and occipital head region. - Will have patient follow up with neurology outpatient. - Plan to continue Valproate on discharge. - Keppra 1g Q12H ordered. Ativan 2 mg ordered PRN. - Pt placed on seizure precautions. - As patient is much more awake now, will switch Heparin to PO Eliquis. - ST recommended to continue with level 4 solids and thin liquids. He should be able to take medications PO as tolerated. - As pt continues to have seizures, Vimpat 150 mg BID will be added. #Hypokalemia - Pt K was 3.3 on admission and was given 40 K PO. Pt K was repleted and was WNL yesterday but fell to 3.4 today. K PO were started and K repleted. - Will continue to monitor and replete as necessary. - No chest pain or palpitations complained by pt. #DM - Blood glucose was uncontrolled at 544 en route to ED. Pt reports not taking his medications consistently. - A1c elevated at 13.9. It appears that patient has not been taking his medications consistently. Will have patient follow up with PCP outpatient. - Consistent carb diet here. - Sliding scale insulin with hypoglycemic protocol in place. - Poorly controlled DM. Diabetic education ordered. #Hx of CHF - Holding home diuretics at this time. #A-fib - Continue home Metoprolol. - Heparin switched to PO Eliquis yesterday as pt had ST evaluation and had recommendations for PO medications to be continued as tolerated. DVT prophylaxis: Eliquis. Disposition: Pending clinical improvement. Discharge pending response to Vimpat and improvement in seizures with need for outpatient neuro follow up. VS,Fishbone, I+O VS, Fishbone, I+O Laboratory Tests 08/04/20 05:29 08/04/20 06:07 Vital Signs Date Time Temp Pulse Resp B/P (MAP) Pulse Ox O2 Delivery O2 Flow Rate FiO2 08/04/20 14:00 97.9 81 18 125/82 (96) 96 Room Air 08/03/20 08:15 2.0 I&O- Last 24 Hours up to 6 AM 08/04/20 06:00 Intake Total 480 ml Output Total 350 ml Balance 130 ml GME ATTESTATION GME ATTESTATION My faculty preceptor for this patient encounter was physically present during the encounter and was fully available. All aspects of the patient interview, examination, medical decision making process, and medical care plan development were reviewed and approved by the faculty preceptor. The faculty preceptor is aware and concurs with the plan as stated in the body of this note and will attest to such by his/her cosignature. ATTENDING NOTE I, Robin Portillo MD, have independently examined this patient and performed my own physical exam, as well as reviewed the documentation and edited where necessary. I have discussed in detail with the resident / student the findings and plan of treatment as documented by the resident / student and edited their note. I agree with their findings and treatment plan and have edited their documentation. Klarsisa AVILA S-3 Aug 04, 2020 16:59 ROBIN PORTILLO MD August 09, 2020 14:54
[2020-08-04] MEDS: ATORVASTATIN 20 MG TAB PO SCH (21:09)
[2020-08-04 21:13] VITALS: BP 132/79
[2020-08-04] MEDS: LEVEMIR (INSULIN DETEMIR) 1 UNITS/0.01ML SC SCH (21:13)
[2020-08-04] MEDS: METOPROLOL SUCC (TopROL XL) 100MG *XL* TAB PO SCH (21:13)
[2020-08-04 22:00] VITALS: BP 132/89
[2020-08-05] MEDS: levETIRAcetam INJection 1,000 MG in D5W 100 ML IV SCH ×2 (02:55→13:51)
[2020-08-05 06:17] LABS: BASO % 0.6 % (0.0-1.0); EOS # 0.1 10^3/uL (0.0-0.5); EOS % 1.6 % (0.0-3.0); HEMATOCRIT 42.6 % (42.0-52.0); HEMOGLOBIN 13.6 g/dl (13.5-17.5); LYMPH # 1.1 10^3/uL (1.5-5.0); LYMPH % 21.1 % (24.0-44.0); MEAN CORPUSCULAR HGB CONC 31.9 g/dl (32.0-36.5); MONO # 0.4 10^3/uL (0.0-0.8); MONO % 8.1 % (2.0-8.0); NEUTROPHILS # 3.5 10^3/uL (1.5-8.5); NEUTROPHILS % 68.2 % (36.0-66.0); PLATELET COUNT, AUTOMATED 171 10^3/uL (150-450); RED BLOOD COUNT 4.53 10^6/uL (4.30-6.10); WHITE BLOOD COUNT 5.1 10^3/uL (4.0-10.0)
[2020-08-05 06:43] LABS: BLOOD UREA NITROGEN 15 MG/DL (7-18); CALCIUM LEVEL 9.2 MG/DL (8.5-10.1); CARBON DIOXIDE LEVEL 26 MEQ/L (21-32); CHLORIDE LEVEL 105 MEQ/L (98-107); CREATININE FOR GFR 0.83 MG/DL (0.70-1.30); GLOMERULAR FILTRATION RATE > 60.0 (>56); GLUCOSE, FASTING 241 MG/DL (70-100); POTASSIUM SERUM 3.9 MEQ/L (3.5-5.1); SODIUM LEVEL 139 MEQ/L (136-145)
[2020-08-05] MEDS ORDERED: LACOSAMIDE 50 MG TAB (VIMPAT) PO SCH (08:00)
[2020-08-05] MEDS: VALPROATE SOD INJ 500 MG in D5W 50 ML IV SCH (09:30)
[2020-08-05] MEDS: PANTOPRAZOLE 40MG VIAL (C9113 PER 1) IV SCH (09:30)
[2020-08-05] MEDS: APIXABAN 5 MG TAB (ELIQUIS) PO SCH (09:31)
[2020-08-05] MEDS: HumaLOG INSULIN (NovoLOG) PER UNIT SC SCH ×3 (09:39→17:23)
[2020-08-05] MEDS ORDERED: BLOOKIT21 XX (12:06)
[2020-08-05] MEDS ORDERED: DEPA1TAB3 PO (12:06)
[2020-08-05] MEDS ORDERED: GLUC1TES2 XX (12:06)
[2020-08-05] MEDS ORDERED: KEPP10002 PO (12:06)
[2020-08-05] MEDS ORDERED: LANC30MI XX (12:06)
[2020-08-05] MEDS ORDERED: LANTINJ4 SC (12:06)
[2020-08-05] MEDS ORDERED: ALCOPAD25 TOP (12:06)
[2020-08-05] MEDS ORDERED: HUMA100I3 SC (12:06)
[2020-08-05 14:00] VITALS: BP 138/82
--- NOTE | 2020-08-05 19:40 | DS.PDOC ---
Discharge Summary General Date of Admission Aug 03, 2020 at 11:18 Date of Discharge 08/05/2020 Attending Physician: ROBIN PORTILLO MD Discharge Summary PROCEDURES PERFORMED DURING STAY: [None]. ADMITTING DIAGNOSES: Absence seizures Diabetes mellitus CHF HDL A. fib HTN GERD DISCHARGE DIAGNOSES: Absence seizures Diabetes mellitus CHF HDL A. fib HTN GERD COMPLICATIONS/CHIEF COMPLAINT: New Onset Seizure. HISTORY OF PRESENT ILLNESS: Pt is a 60 year old male with PMH of DM, HTN, HLD, A fib, CHF who presented to the ED with 5 day hx of altered mental status. Pt had his first Moderna COVID vaccination on July 27, 2020 and his sx began later that evening. Son reports that pt had an episode of 2 hours of "staring into space" the evening of his COVID vaccination. Since then pt has had multiple similar episodes. He more recently had episodes of urinary incontinence that prompted pt son to call EMS. EMS reported that pt had another episode of absence seizure like episode en route to the ED and was responsive after the event was over. Pt was admitted for multiple episodes of absence seizure, new onset. HOSPITAL COURSE: After the patient being hospitalized he did have multiple episodes of absence seizures, the initial imaging of the CT head showed atrophy and microvascular ischemic changes. No acute intracranial hemorrhage, infarction, mass effect. Patient cannot have MRI due to the hardware in his back. She was scheduled for EEG and on admission was started on valproate and Keppra. Neurology was consulted for this patient and they recommended EEG as well and the EEG reported seizure foci in the right frontal, temporal and occipital region. Patient was continued on valproic acid and Keppra he gradually improved and was seizure-free overnight prior to switching his medication to oral and was discharged with follow-up with PCP and neurology. DISCHARGE MEDICATIONS: Please see below. ALLERGIES: Please see below. PHYSICAL EXAMINATION ON DISCHARGE: VITAL SIGNS: Please see below. GENERAL: Pt is laying in bed, comfortably at rest. Pt is easily arousable and is able to answer questions without difficulty, much more alert than yesterday. CARDIOVASCULAR: Regular rate, regular rhythm on auscultation. No murmurs, rubs, or gallops appreciated. PULMONARY: Good breath sounds bilaterally. No wheezes, rales, or rhonchi. ABD: Normoactive bowel sounds to all four quadrants. Mild discomfort with palpation. EXTREMITIES: 2+ pitting edema to BLE up to mid pike. Area of scabbing and erythema to R lower extremity. Does not appear cellulitic and pt reports that it has been there "for a while". NEURO: Sensations intact. Pt is alert and is able to answer questions without difficulty. Did not have any seizure overnight. LABORATORY DATA: Please see below. IMAGING: Heat CT (08/01/20) Atrophy and microvascular ischemic changes. No acute intracranial hemorrhage, infarction, or mass/mass effect. CXR (08/01/20) No acute cardiopulmonary process appreciated. Maxillofacial CT (08/01/20) Edema in the left pre maxillary space and periorbital region. No fluid crescencio ections/abscess. Peridontal disease. EEG Conclusion per Dr. Mariano (08/04/20): This EEG is awake and drowsy states is abnormal due to presence of two clinical and electrographic seizures arising in the right frontal head region with spread to right temporal, parietal, and occipital head region. Clinical correlation is recommended. PROGNOSIS: Fair ACTIVITY: [As tolerated]. DIET: Regular diet DISCHARGE PLAN: To go home with home care. DISPOSITION: Home, Self-Care. DISCHARGE INSTRUCTIONS: 1. To follow-up with PCP in one week. 2. To follow with neurology in 1 week. 3. Given the patient was diabetic and his hemoglobin A1c was 13.9, patient was started on insulin on discharge. 4. He was started on Lantus 20 units at bedtime, Humalog pre-meals 3 units. 5. His medication for diabetes should be optimized by the PCP further on. 6. Patient should continue taking valproate 500 mg twice a day, and Keppra thousand milligrams twice a day regularly. ITEMS TO FOLLOWUP ON ON OUTPATIENT: 1. Follow with PCP in one week, and his medications for diabetes should be optimized. 2. Follow with neurology in 1 week for new onset absence seizures. DISCHARGE CONDITION: [Stable]. TIME SPENT ON DISCHARGE: Greater than 30 minutes. Vital Signs/I&Os Vital Signs Date Time Temp Pulse Resp B/P (MAP) Pulse Ox O2 Delivery O2 Flow Rate FiO2 08/05/20 14:00 97.8 82 18 138/82 (100) 96 Room Air 08/03/20 08:15 2.0 I&O- Last 24 Hours up to 6 AM 08/05/20 06:00 Intake Total 690 ml Output Total 1050 ml Balance -360 ml Laboratory Data Labs 24H Laboratory Tests 2 08/04/20 20:35: Bedside Glucose (Misc Panel) 328H 08/05/20 05:46: Immature Granulocyte % (Auto) 0.4, Neutrophils (%) (Auto) 68.2H, Lymphocytes (%) (Auto) 21.1L, Monocytes (%) (Auto) 8.1H, Eosinophils (%) (Auto) 1.6, Basophils (%) (Auto) 0.6, Neutrophils # (Auto) 3.5, Lymphocytes # (Auto) 1.1L, Monocytes # (Auto) 0.4, Eosinophils # (Auto) 0.1, Basophils # (Auto) 0.0, Nucleated Red Blood Cells % (auto) 0.0, Anion Gap 8, Glomerular Filtration Rate > 60.0, Calcium Level 9.2, Magnesium Level 2.0 08/05/20 11:13: Bedside Glucose (Misc Panel) 215H 08/05/20 16:51: Bedside Glucose (Misc Panel) 222H CBC/BMP Laboratory Tests 08/05/20 05:46 FSBS Laboratory Tests Test 08/04/20 20:35 08/05/20 11:13 08/05/20 16:51 Range/Units Bedside Glucose (Misc Panel) 328 215 222 70-105 MG/DL Microbiology Microbiology 08/01/20 Respiratory Virus Panel (PCR) (JANINA) - Final, Complete Discharge Medications Scheduled Apixaban (Eliquis) 5 Mg Tablet, 5 MG PO BID, (Reported) 0800/1700 Atorvastatin Calcium (Atorvastatin Calcium) 40 Mg Tablet, 40 MG PO QHS, (Reported) Blood Sugar Diagnostic (Advanced Glucose Test Strips) 1 Each Strip, 1 STRIP XX ASDIRECTED Cholecalciferol (Vitamin D3) (Vitamin D3) 50 Mcg Capsule, 50 MCG PO DAILY, (Reported) Divalproex Sodium (Depakote) 500 Mg Tablet.dr, 500 MG PO BID Insulin Glargine,Hum.rec.anlog (Lantus Solostar) 100 Unit/1 Ml Insuln.pen, 20 UNIT SC QPM Insulin Lispro (Humalog) 100 Unit/1 Ml Cartridge, 3 UNITS SC WM Levetiracetam (Keppra) 1,000 Mg Tablet, 1 TAB PO BID Metformin HCl (Metformin HCl) 1,000 Mg Tablet, 1,000 MG PO QPM, (Reported) Metoprolol Succinate (Metoprolol Succinate) 100 Mg Tab.er.24h, 100 MG PO QPM, (Reported) Pantoprazole Sodium (Pantoprazole Sodium) 40 Mg Tablet.dr, 40 MG PO BID, (Reported) 0800/1700 Torsemide (Torsemide) 20 Mg Tablet, 20 MG PO DAILY, (Reported) Triamterene/Hydrochlorothiazid (Triamterene-Hctz 75-50 mg Tab) 1 Each Tablet, 1 TAB PO DAILY, (Reported) Allergies Coded Allergies: No Known Allergies (Unverified , 08/01/20) GME ATTESTATION GME ATTESTATION My faculty preceptor for this patient encounter was physically present during the encounter and was fully available. All aspects of the patient interview, examination, medical decision making process, and medical care plan development were reviewed and approved by the faculty preceptor. The faculty preceptor is aware and concurs with the plan as stated in the body of this note and will attest to such by his/her cosignature. ATTENDING NOTE I, Robin Portillo MD, have independently examined this patient and performed my own physical exam, as well as reviewed the documentation and edited where necessary. I have discussed in detail with the resident / student the findings and plan of treatment as documented by the resident / student and edited their n ote. I agree with their findings and treatment plan and have edited their documentation. Total time spent on discharge including coordination of care, review of chart, documentation, actual patient contact is around 35 minutes Prem Ferris MD Aug 05, 2020 19:40 ROBIN PORTILLO MD August 09, 2020 14:59
== END 2020-08-05 18:00 | disposition home or self-care (01) | DRG 53 ==
LOC: M ED 13:02 → M ED INP 13:03 → ENRESERV 15:35 → M MS5PR 16:20 → OBSVTOIN 08-03 11:18
PROVIDERS: ADMIT Internal Medicine Nephrology; ATTEND Internal Medicine
DX: G40.A19 Absence epileptic syndrome, intractable, without status epilepticus (principal); G93.41 Metabolic encephalopathy; G40.309 Generalized idiopathic epilepsy and epileptic syndromes, not intractable, without status epilepticus; I11.0 Hypertensive heart disease with heart failure; I50.9 Heart failure, unspecified; I48.91 Unspecified atrial fibrillation; E11.9 Type 2 diabetes mellitus without complications; K21.9 Gastro-esophageal reflux disease without esophagitis; Z79.899 Other long term (current) drug therapy; Z79.4 Long term (current) use of insulin; E78.5 Hyperlipidemia, unspecified; E87.6 Hypokalemia

== ENCOUNTER 2020-08-12 11:42 | Emergency (ER) | payer OTHER ==
[~2020-08-12] VITALS: Ht 162.6 cm; Wt 104.5 kg
[~2020-08-12 11:42] MED LIST: ALCOPAD25 TOP; ATOR40TA75 PO; BLOOKIT21 XX; DEPA1TAB3 PO; ELIQ5TAB PO; GLUC1TES2 XX; HUMA100I3 SC; KEPP10002 PO; LANC30MI XX; LANTINJ4 SC; LATA0.0015 OU; METF10004 PO; METO1TAB33 PO; METO1TAB7 PO; OMEP-221 PO; PANT40TA29 PO; PROAAER10 INH; TERB250T12 PO; TORS20TA2 PO; TRIA75TA PO; VENTAER INH; VITA200044 PO; VITA50005 PO
[2020-08-12 14:30] VITALS: BP 139/74
== END 2020-08-12 14:32 | disposition home or self-care (01) ==
LOC: EDBD 11:42 → M ED 11:42 → MERGE 11:42 → M ED 14:32
DX: G40.A09 Absence epileptic syndrome, not intractable, without status epilepticus (principal); G40.309 Generalized idiopathic epilepsy and epileptic syndromes, not intractable, without status epilepticus; I48.91 Unspecified atrial fibrillation; E11.9 Type 2 diabetes mellitus without complications; I10 Essential (primary) hypertension; E78.5 Hyperlipidemia, unspecified; G47.30 Sleep apnea, unspecified; Z79.899 Other long term (current) drug therapy; Z79.4 Long term (current) use of insulin; Z79.01 Long term (current) use of anticoagulants

== ENCOUNTER 2020-09-24 12:38 | Emergency (ER) | payer OTHER ==
[~2020-09-24] VITALS: Ht 162.6 cm; Wt 103.5 kg
[~2020-09-24 12:38] MED LIST changes: +ERGO500029 PO; -VITA50005 PO
[2020-09-24] MEDS ORDERED: NS 1,000 ML IV ONE (14:00)
[2020-09-24 14:23] LABS: BASO % 0.5 % (0.0-1.0); EOS # 0.1 10^3/uL (0.0-0.5); EOS % 1.4 % (0.0-3.0); HEMATOCRIT 41.2 % (42.0-52.0); HEMOGLOBIN 13.6 g/dl (13.5-17.5); LYMPH # 1.6 10^3/uL (1.5-5.0); LYMPH % 24.6 % (24.0-44.0); MEAN CORPUSCULAR HEMOGLOBIN 30.1 pg (27.0-33.0); MEAN CORPUSCULAR VOLUME 91.2 fl (80.0-96.0); MONO # 0.8 10^3/uL (0.0-0.8); NEUTROPHILS % 61.3 % (36.0-66.0); PLATELET COUNT, AUTOMATED 216 10^3/uL (150-450); RED BLOOD COUNT 4.52 10^6/uL (4.30-6.10); WHITE BLOOD COUNT 6.5 10^3/uL (4.0-10.0)
[2020-09-24] MEDS ORDERED: HumuLIN R (REGULAR) INSULIN (NovoLIN R) **100U/ML** PER UNIT SC STA (14:24)
[2020-09-24 14:27] LABS: VENOUS PH 7.427 UNITS (7.330-7.430)
[2020-09-24 14:28] LABS: VENOUS BASE EXCESS 8.4 (-2.0-2.0); VENOUS HCO3 34.5 MEQ/L (23.0-27.0); VENOUS O2 SATURATION 63.4 % (60.0-80.0); VENOUS PARTIAL PRESSURE CO2 53.6 mmHg (38.0-50.0); VENOUS PARTIAL PRESSURE O2 34.2 mmHg (30.0-50.0); VENOUS STANDARD HCO3 31.2 MEQ/L; VENOUS TOTAL CO2 36.2 MEQ/L (24.0-28.0)
[2020-09-24] MEDS: METOPROLOL 5 MG/5 ML VIAL IV SCH ×3 (14:31→14:47)
[2020-09-24 14:47] VITALS: BP 126/67
[2020-09-24 14:50] LABS: OSMOLALITY SERUM 299 MOSM/KG (275-295)
[2020-09-24 14:51] LABS: ACETONE/KETONE 1.27 MG/DL (<2.81); ALBUMIN 3.2 GM/DL (3.2-5.2); ALT/SGPT 48 U/L (12-78); BILIRUBIN,DIRECT 0.1 MG/DL (0.0-0.2); BILIRUBIN,TOTAL 0.4 MG/DL (0.2-1.0); BLOOD UREA NITROGEN 22 MG/DL (7-18); CALCIUM LEVEL 8.9 MG/DL (8.5-10.1); CARBON DIOXIDE LEVEL 37 MEQ/L (21-32); CHLORIDE LEVEL 92 MEQ/L (98-107); CK-MB VALUE MASS 1.1 NG/ML (<3.6); CPK CREATINE PHOSPHOKINASE 62 U/L (39-308); CREATININE FOR GFR 1.15 MG/DL (0.70-1.30); GLOMERULAR FILTRATION RATE > 60.0 (>56); GLUCOSE, FASTING 373 MG/DL (70-100); LIPASE 157 U/L (73-393); MB/CK RELATIVE INDEX 1.77 (< OR =4); POTASSIUM SERUM 3.4 MEQ/L (3.5-5.1); SODIUM LEVEL 134 MEQ/L (136-145); TOTAL PROTEIN 7.5 GM/DL (6.4-8.2); TROPONIN I < 0.02 NG/ML (< 0.10)
[2020-09-24 15:01] LABS: C REACTIVE PROTEIN QUANTITATIV 1.47 MG/DL (0.00-0.30)
[2020-09-24 15:03] LABS: HEMOGLOBIN A1c 12.6 %
[2020-09-24 15:37] LABS: ERYTHROCYTE SEDIMENTATION RATE 40 mm/hr (0-20)
[2020-09-24 17:00] VITALS: BP 116/78
--- NOTE | 2020-09-25 06:55 | ECGEPIP ---
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
== END 2020-09-24 17:58 | disposition home or self-care (01) ==
LOC: M ED 12:38
DX: E11.65 Type 2 diabetes mellitus with hyperglycemia (principal); I48.91 Unspecified atrial fibrillation; R94.31 Abnormal electrocardiogram [ECG] [EKG]; Z79.899 Other long term (current) drug therapy; Z79.4 Long term (current) use of insulin; Z86.69 Personal history of other diseases of the nervous system and sense organs

== ENCOUNTER → 2020-11-03 | Outpatient (CLI) | payer OTHER ==
[~2020-11-03] MED LIST changes: +DIGO0.253 PO; +GLIP5TAB8 PO
== END ==
LOC: M LABSMTC 09:32
PROVIDERS: ATTEND Anesthesiology
DX: Z20.828 Contact with and (suspected) exposure to other viral communicable diseases (principal); Z11.59 Encounter for screening for other viral diseases

== ENCOUNTER 2020-11-05 07:14 | Day surgery (SDC) | payer OTHER ==
[~2020-11-05] VITALS: Ht 162.6 cm; Wt 103.9 kg
[~2020-11-05 07:14] MED LIST changes: +NS 1,000 ML IV ONE
[2020-11-05] MEDS ORDERED: LIDOCAINE 2% 100MG/5ML SDV (FOR ANES.) As Ordered ONE (10:19)
[2020-11-05] MEDS ORDERED: propofoL 200 MG/20 ML VIAL As Ordered ONE (10:19)
[2020-11-05] MEDS ORDERED: fentaNYL 100 MCG/2 ML INJECTION (J3010) As Ordered ONE (10:19)
--- NOTE | 2020-11-05 10:57 | ROOR ---
Patient Name: Beto Lockett Procedure Date: 11/05/2020 10:12 AM Date of : 1960 Age: 60 Room: [facility] Gender: Male Note Status: Finalized Procedure: Upper GI endoscopy Indications: Hill's high grade dysplasia Providers: Omega Charles MD Referring MD: Azul Aquino NP Requesting Provider: Medicines: Monitored Anesthesia Care Complications: No immediate complications. Procedure: Pre-Anesthesia Assessment: - Prior to the procedure, a History and Physical was performed, and patient medications and allergies were reviewed. The patient is competent. The risks and benefits of the procedure and the sedation options and risks were discussed with the patient. All questions were answered and informed consent was obtained. Patient identification and proposed procedure were verified by the physician, the nurse and the anesthesiologist in the procedure room. Mental Status Examination: alert and oriented. Airway Examination: normal oropharyngeal airway and neck mobility. Respiratory Examination: clear to auscultation. CV Examination: normal. Prophylactic Antibiotics: The patient does not require prophylactic antibiotics. Prior Anticoagulants: The patient has taken Eliquis (apixaban), last dose was 2 days prior to procedure. ASA Grade Assessment: III - A patient with severe systemic disease. After reviewing the risks and benefits, the patient was deemed in satisfactory condition to undergo the procedure. The anesthesia plan was to use monitored anesthesia care (MAC). Immediately prior to administration of medications, the patient was re-assessed for adequacy to receive sedatives. The heart rate, respiratory rate, oxygen saturations, blood pressure, adequacy of pulmonary ventilation, and response to care were monitored throughout the procedure. The physical status of the patient was re-assessed after the procedure. The Endoscope was introduced through the mouth, and advanced to the second part of duodenum. The upper GI endoscopy was accomplished without difficulty. The patient tolerated the procedure well. Findings: A large hiatal hernia was present. A few 5 to 10 mm mucosal nodules with a localized distribution were found in the distal esophagus. Biopsies were taken with a cold forceps for histology. Verification of patient identification for the specimen was done by the physician and nurse using the patient's name, date and medical record number. Estimated blood loss was minimal. 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 No gross lesions were noted in the entire examined stomach. A single 6 mm mucosal nodule with a localized distribution was found in the second portion of the duodenum. The polyp was removed with a cold biopsy forceps. Resection and retrieval were complete. Impression: - Large hiatal hernia. - Mucosal nodule found in the esophagus. Biopsied. 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 - No gross lesions in the stomach. - Mucosal nodule found in the duodenum. Recommendation: - Patient has a contact number available for emergencies. The signs and symptoms of potential delayed complications were discussed with the patient. Return to normal activities tomorrow. Written discharge instructions were provided to the patient. - High fiber diet. - Continue present medications. - Resume Eliquis (apixaban) at prior dose tomorrow. Refer to primary physician for further adjustment of therapy. - Use Protonix (pantoprazole) 40 mg PO BID for 3 months. - Perform an upper GI endoscopy with EUS and possible mucosal resection in Tertiary center for Suspected early esophageal cancer. - Referral will be sent to a Advanced bookstore clerk in [place] or patient choice, for above and then oncology evaluation based on that. - Return to GI clinic in [facility] (address [address], [address], [place], [facility] [place] [facility] [place] in 4 -- 6 weeks. Please call GI clinic @ [phone] for apppointment date and time. - Return to primary care physician. 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 All rights reserved. The codes documented in this report are preliminary and upon nurse school review may be revised to meet current compliance requirements. Omega Charles MD Omega Charles MD 11/05/2020 10:56:09 AM Electronically signed by Omega Charles MD Number of Addenda: 0 Note Initiated On: 11/05/2020 10:12 AM Estimated Blood Loss: Estimated blood loss was minimal.
--- NOTE | 2020-11-05 11:00 | ROOR ---
Patient Name: Beto Lockett Procedure Date: 11/05/2020 10:13 AM Date of : 1960 Age: 60 Room: [facility] Gender: Male Note Status: Finalized Procedure: Colonoscopy Indications: High risk colon cancer surveillance: Personal history of colonic polyps Providers: Omega Charles MD Referring MD: Azul Aquino NP Requesting Provider: Medicines: Monitored Anesthesia Care Complications: No immediate complications. Procedure: Pre-Anesthesia Assessment: - Prior to the procedure, a History and Physical was performed, and patient medications and allergies were reviewed. The patient is competent. The risks and benefits of the procedure and the sedation options and risks were discussed with the patient. All questions were answered and informed consent was obtained. Patient identification and proposed procedure were verified by the physician, the nurse and the anesthesiologist in the procedure room. Mental Status Examination: alert and oriented. Prophylactic Antibiotics: The patient does not require prophylactic antibiotics. Prior Anticoagulants: The patient has taken no previous anticoagulant or antiplatelet agents. ASA Grade Assessment: II - A patient with mild systemic disease. After reviewing the risks and benefits, the patient was deemed in satisfactory condition to undergo the procedure. The anesthesia plan was to use monitored anesthesia care (MAC). Immediately prior to administration of medications, the patient was re-assessed for adequacy to receive sedatives. The heart rate, respiratory rate, oxygen saturations, blood pressure, adequacy of pulmonary ventilation, and response to care were monitored throughout the procedure. The physical status of the patient was re-assessed after the procedure. The Colonoscope was introduced through the anus and advanced to the terminal ileum, with identification of the appendiceal orifice and IC valve. The colonoscopy was performed without difficulty. The patient tolerated the procedure well. The quality of the bowel preparation was adequate to identify polyps 6 mm and larger in size and fair. The terminal ileum, ileocecal valve, appendiceal orifice, and rectum were photographed. Scope insertion time was 1 minute. Scope withdrawal time was 6 minutes. The total duration of the procedure was 10 minutes. Findings: The perianal and digital rectal examinations were normal. The terminal ileum appeared normal. A moderate amount of stool was found in the entire colon, interfering with visualization. Lavage of the area was performed using a large amount of sterile water, resulting in clearance with good visualization. Non-bleeding external and internal hemorrhoids were found during retroflexion. The hemorrhoids were medium-sized. Impression: - Preparation of the colon was fair. - The examined portion of the ileum was normal. - Stool in the entire examined colon. - Non-bleeding external and internal hemorrhoids. - No specimens collected. Recommendation: - Patient has a contact number available for emergencies. The signs and symptoms of potential delayed complications were discussed with the patient. Return to normal activities tomorrow. Written discharge instructions were provided to the patient. - High fiber diet. - Continue present medications. - Follow the recommendations as per the other procedure note. - Repeat colonoscopy in 3 years due to personal history of colon polyps in past Colonoscopy. - Return to GI clinic in [facility] (address [address], [address], [place], [facility]) in 4 -- 6 weeks. Please call GI clinic @ [phone] for apppointment date and time. - Return to primary care physician. Procedure Code(s): --- Professional --- 65737, Colonoscopy, flexible; diagnostic, including collection of specimen(s) by brushing or washing, when performed (separate procedure) Diagnosis Code(s): --- Professional --- Z86.010, Personal history of colonic polyps K64.8, Other hemorrhoids CPT copyright 2019 [employer]. All rights reserved. The codes documented in this report are preliminary and upon sales force developer review may be revised to meet current compliance requirements. Omega Charles MD Omega Charles MD 11/05/2020 10:59:58 AM Electronically signed by Omega Charles MD Number of Addenda: 0 Note Initiated On: 11/05/2020 10:13 AM Estimated Blood Loss: Estimated blood loss: none.
[2020-11-05 11:10] VITALS: BP 127/78
== END 2020-11-05 15:00 | disposition home or self-care (01) ==
LOC: M OPP 07:14
PROVIDERS: ATTEND Internal Medicine Gastroenterology
DX: Z86.010 Personal history of colon polyps (principal); Z09 Encounter for follow-up examination after completed treatment for conditions other than malignant neoplasm; K64.8 Other hemorrhoids; K44.9 Diaphragmatic hernia without obstruction or gangrene; K22.8 Other specified diseases of esophagus; Q40.2 Other specified congenital malformations of stomach; K31.89 Other diseases of stomach and duodenum; K22.711 Barrett's esophagus with high grade dysplasia; K21.9 Gastro-esophageal reflux disease without esophagitis; Z79.4 Long term (current) use of insulin; Z79.899 Other long term (current) drug therapy
CPT/HCPCS: 43239; 45378; 88305; J3010

== ENCOUNTER → 2021-02-02 | Outpatient (CLI) | payer OTHER ==
[~2021-02-02] MED LIST changes: -NS 1,000 ML IV ONE; -TERB250T12 PO; +TERB250T91 PO
--- NOTE | 2021-02-02 14:55 | REP ---
INDICATION: DYSPNEA. COMPARISON: None. TECHNIQUE: PA and lateral FINDINGS: The cardiomediastinal silhouette is within normal limits. There is bilateral CP angle blunting. There are bilateral basilar curvilinear densities. The osseous structures are within normal limits. IMPRESSION: Bilateral lung base findings as described above. Small bilateral pleural effusions/subsegmental atelectatic change/early pneumonia. Correlate clinically. There are no priors for comparison. <Electronically signed by Irving Martins > 02/02/21 [id number]
== END ==
LOC: M RAD 10:34
PROVIDERS: ATTEND Nurse Practitioner Family
DX: R06.00 Dyspnea, unspecified (principal); J90 Pleural effusion, not elsewhere classified

== ENCOUNTER 2021-03-02 18:18 | Inpatient (IN) | payer OTHER ==
[~2021-03-02] VITALS: Ht 162.6 cm; Wt 102.2 kg
[~2021-03-02 18:18] MED LIST changes: -OMEP-221 PO; +OMEP40CA5 PO
[2021-03-02 18:44] LABS: BASO % 0.4 % (0.0-1.0); EOS % 0.5 % (0.0-3.0); HEMATOCRIT 45.6 % (42.0-52.0); HEMOGLOBIN 14.2 g/dl (13.5-17.5); LYMPH # 0.7 10^3/uL (1.5-5.0); LYMPH % 8.8 % (24.0-44.0); MEAN CORPUSCULAR HGB CONC 31.1 g/dl (32.0-36.5); MEAN CORPUSCULAR VOLUME 89.9 fl (80.0-96.0); MONO # 0.8 10^3/uL (0.0-0.8); MONO % 10.9 % (2.0-8.0); NEUTROPHILS % 79.1 % (36.0-66.0); PLATELET COUNT, AUTOMATED 183 10^3/uL (150-450); RED BLOOD COUNT 5.07 10^6/uL (4.30-6.10); WHITE BLOOD COUNT 7.6 10^3/uL (4.0-10.0)
[2021-03-02 18:55] LABS: INR 0.99; PARTIAL THROMBOPLASTIN TIME 36.4 SECONDS (25.9-37.0); PROTHROMBIN TIME 13.5 SECONDS (12.7-14.5)
[2021-03-02 19:30] LABS: ALT/SGPT 29 U/L (12-78); BILIRUBIN,DIRECT 0.3 MG/DL (0.0-0.2); BILIRUBIN,TOTAL 0.9 MG/DL (0.2-1.0); BLOOD UREA NITROGEN 7 MG/DL (7-18); CALCIUM LEVEL 8.5 MG/DL (8.5-10.1); CARBON DIOXIDE LEVEL 26 MEQ/L (21-32); CHLORIDE LEVEL 97 MEQ/L (98-107); CREATININE FOR GFR 0.85 MG/DL (0.70-1.30); GLOMERULAR FILTRATION RATE > 60.0 (>56); GLUCOSE, FASTING 245 MG/DL (70-100); LIPASE 185 U/L (73-393); NT-PRO BNP 827 PG/ML (<125); POTASSIUM SERUM 3.3 MEQ/L (3.5-5.1); SODIUM LEVEL 134 MEQ/L (136-145); TOTAL PROTEIN 7.2 GM/DL (6.4-8.2)
[2021-03-02] MEDS ORDERED: diltiaZEM 125 MG in NS 100 ML IV SCH ×2 (20:25→22:45)
[2021-03-02] MEDS ORDERED: FUROSEMIDE 40MG/4ML VIAL (J1940) IV ONE (20:25)
[2021-03-02] MEDS: HumaLOG INSULIN (NovoLOG) PER UNIT SC SCH (21:00)
[2021-03-02] MEDS: APIXABAN 5 MG TAB (ELIQUIS) PO SCH (21:00)
[2021-03-02] MEDS: PANTOPRAZOLE 40MG TAB (PROTONIX) PO SCH (21:00)
[2021-03-02] MEDS: DIVALPROEX 500 MG TAB PO SCH (21:00)
[2021-03-02] MEDS: METOPROLOL TARTRATE 100MG TAB PO SCH (21:00)
[2021-03-02] MEDS: diltiaZEM 125 MG in NS 100 ML IV SCH (21:03)
[2021-03-02] MEDS ORDERED: dexameTHASONE 20MG/5ML VIAL (J1100 PER 1MG) IV ONE (21:40)
[2021-03-02] MEDS: BENZONATATE 100MG CAPSULE PO SCH (22:00)
[2021-03-02] MEDS ORDERED: LOPR1TAB7 PO (22:25)
[2021-03-02] MEDS ORDERED: ACET650T61 PO (22:25)
[2021-03-02] MEDS ORDERED: STEG15TA PO (22:25)
[2021-03-02] MEDS ORDERED: ALBU8.5H INH (22:25)
[2021-03-02] MEDS ORDERED: TRIA75TA PO (22:25)
[2021-03-02] MEDS ORDERED: GLIP10TA18 PO (22:25)
[2021-03-02] MEDS ORDERED: HOME MED LIST COMPLETE! XX SCH (22:30)
[2021-03-02] MEDS ORDERED: DEXTROSE 50% 50 ML SYRINGE IV PRN (23:05)
[2021-03-02] MEDS ORDERED: GLUCOSE 4GM CHEW TABLET PO PRN (23:05)
[2021-03-02] MEDS ORDERED: ACETAMINOPHEN 650MG ER TAB (TYLENOL ARTHRITIS) PO PRN (23:05)
[2021-03-02] MEDS ORDERED: GLUCAGON INJ 1MG VIAL SC PRN (23:05)
[2021-03-02] MEDS ORDERED: DIGOXIN INJ 0.5 MG/2 ML AMP (J1160) IV STA (23:08)
[2021-03-02 23:09] LABS: VALPROIC ACID (DEPAKOTE) < 3.0 UG/ML (50.0-100.0)
[2021-03-03] VITALS (33 sets, daily range): BP systolic 100–171; BP diastolic 57–102
[2021-03-03] MEDS: diltiaZEM 125 MG in NS 100 ML IV SCH ×4 (00:03→20:53)
[2021-03-03] MEDS ORDERED: POTASSIUM CHLORIDE 10MEQ SR TABLET PO ONE ×2 (00:35→14:00)
[2021-03-03 01:51] LABS: HEMOGLOBIN A1c 12.5 %
[2021-03-03] MEDS: FUROSEMIDE 40MG/4ML VIAL (J1940) IV SCH ×4 (02:36→17:35)
[2021-03-03] MEDS ORDERED: diltiaZEM 125 MG in NS 100 ML IV SCH ×3 (03:45)
[2021-03-03] MEDS ORDERED: DIGOXIN 0.25 MG TAB PO ONE (04:20)
[2021-03-03] MEDS: BENZONATATE 100MG CAPSULE PO SCH ×3 (06:06→20:26)
[2021-03-03 06:09] LABS: BASO % 0.3 % (0.0-1.0); HEMOGLOBIN 14.6 g/dl (13.5-17.5); LYMPH # 0.4 10^3/uL (1.5-5.0); LYMPH % 5.6 % (24.0-44.0); MEAN CORPUSCULAR HEMOGLOBIN 28.5 pg (27.0-33.0); MEAN CORPUSCULAR HGB CONC 31.7 g/dl (32.0-36.5); MEAN CORPUSCULAR VOLUME 89.7 fl (80.0-96.0); MONO # 0.2 10^3/uL (0.0-0.8); MONO % 2.5 % (2.0-8.0); NEUTROPHILS # 6.7 10^3/uL (1.5-8.5); NEUTROPHILS % 91.5 % (36.0-66.0); PLATELET COUNT, AUTOMATED 172 10^3/uL (150-450); RED BLOOD COUNT 5.13 10^6/uL (4.30-6.10); WHITE BLOOD COUNT 7.3 10^3/uL (4.0-10.0)
[2021-03-03 06:29] LABS: BLOOD UREA NITROGEN 10 MG/DL (7-18); CALCIUM LEVEL 8.7 MG/DL (8.5-10.1); CARBON DIOXIDE LEVEL 31 MEQ/L (21-32); CHLORIDE LEVEL 95 MEQ/L (98-107); GLOMERULAR FILTRATION RATE > 60.0 (>56); GLUCOSE, FASTING 319 MG/DL (70-100); POTASSIUM SERUM 3.5 MEQ/L (3.5-5.1); SODIUM LEVEL 135 MEQ/L (136-145)
[2021-03-03 07:59] LABS: VENOUS BASE EXCESS -2.1 (-2.0-2.0); VENOUS HCO3 24.4 MEQ/L (23.0-27.0); VENOUS O2 SATURATION 93.5 % (60.0-80.0); VENOUS PARTIAL PRESSURE CO2 47.7 mmHg (38.0-50.0); VENOUS PARTIAL PRESSURE O2 71.3 mmHg (30.0-50.0); VENOUS PH 7.326 UNITS (7.330-7.430); VENOUS STANDARD HCO3 22.7 MEQ/L; VENOUS TOTAL CO2 25.8 MEQ/L (24.0-28.0)
[2021-03-03] MEDS: ASPIRIN 81MG ENTERIC TABLET PO SCH (08:15)
[2021-03-03] MEDS: APIXABAN 5 MG TAB (ELIQUIS) PO SCH ×2 (08:15→20:25)
[2021-03-03] MEDS: DIVALPROEX 500 MG TAB PO SCH ×2 (08:15→20:25)
[2021-03-03] MEDS: PANTOPRAZOLE 40MG TAB (PROTONIX) PO SCH ×2 (08:15→20:25)
[2021-03-03] MEDS: METOPROLOL TARTRATE 100MG TAB PO SCH ×2 (08:16→20:27)
[2021-03-03] MEDS: DIGOXIN 0.25 MG TAB PO SCH (08:16)
[2021-03-03] MEDS: HumaLOG INSULIN (NovoLOG) PER UNIT SC SCH ×4 (08:17→20:59)
[2021-03-03] MEDS ORDERED: TORSEMIDE 20 MG TAB PO SCH (09:00)
[2021-03-03] MEDS ORDERED: MAXZIDE 75/50 TABLET PO SCH (09:00)
[2021-03-03] MEDS ORDERED: guaiFENesin DM *SUGAR FREE* 5ML**DIABETIC TUSSIN DM PO PRN (11:35)
[2021-03-03] MEDS ORDERED: HumaLOG INSULIN (NovoLOG) PER UNIT SC ONE (17:30)
[2021-03-03 20:17] LABS: MAGNESIUM LEVEL 1.7 MG/DL (1.8-2.4); PHOSPHORUS LEVEL 3.6 MG/DL (2.5-4.9)
[2021-03-03] MEDS: ATORVASTATIN 20 MG TAB PO SCH (20:25)
[2021-03-03] MEDS: LEVEMIR (INSULIN DETEMIR) 1 UNITS/0.01ML SC SCH (20:51)
[2021-03-03] MEDS ORDERED: LEVEMIR (INSULIN DETEMIR) 1 UNITS/0.01ML SC SCH (21:00)
[2021-03-04] VITALS (14 sets, daily range): BP systolic 98–130; BP diastolic 63–80
[2021-03-04 05:52] LABS: BLOOD UREA NITROGEN 22 MG/DL (7-18); CALCIUM LEVEL 8.2 MG/DL (8.5-10.1); CARBON DIOXIDE LEVEL 35 MEQ/L (21-32); CHLORIDE LEVEL 91 MEQ/L (98-107); CREATININE FOR GFR 1.21 MG/DL (0.70-1.30); GLOMERULAR FILTRATION RATE > 60.0 (>56); GLUCOSE, FASTING 293 MG/DL (70-100); MAGNESIUM LEVEL 2.3 MG/DL (1.8-2.4); PHOSPHORUS LEVEL 3.9 MG/DL (2.5-4.9); POTASSIUM SERUM 2.9 MEQ/L (3.5-5.1); SODIUM LEVEL 133 MEQ/L (136-145)
[2021-03-04] MEDS ORDERED: POTASSIUM CHLORIDE 10MEQ SR TABLET PO ONE ×4 (06:00→16:00)
[2021-03-04] MEDS: BENZONATATE 100MG CAPSULE PO SCH ×3 (06:29→21:37)
[2021-03-04] MEDS: HumaLOG INSULIN (NovoLOG) PER UNIT SC SCH ×4 (07:40→21:37)
[2021-03-04] MEDS: FUROSEMIDE 40MG/4ML VIAL (J1940) IV SCH ×2 (07:41)
[2021-03-04 07:50] LABS: PROLACTIN 4.4 NG/ML (2.1-17.7)
[2021-03-04] MEDS: LEVEMIR (INSULIN DETEMIR) 1 UNITS/0.01ML SC SCH ×2 (08:42→21:36)
[2021-03-04] MEDS: DIVALPROEX 500 MG TAB PO SCH ×2 (08:42→22:41)
[2021-03-04] MEDS: METOPROLOL TARTRATE 100MG TAB PO SCH ×2 (08:43→21:38)
[2021-03-04] MEDS: APIXABAN 5 MG TAB (ELIQUIS) PO SCH ×2 (08:43→21:37)
[2021-03-04] MEDS: ASPIRIN 81MG ENTERIC TABLET PO SCH (08:43)
[2021-03-04] MEDS: DIGOXIN 0.25 MG TAB PO SCH (08:43)
[2021-03-04] MEDS: PANTOPRAZOLE 40MG TAB (PROTONIX) PO SCH ×2 (08:53→21:37)
[2021-03-04] MEDS ORDERED: LEVEMIR (INSULIN DETEMIR) 1 UNITS/0.01ML SC SCH (09:00)
[2021-03-04] MEDS ORDERED: FLUBLOK(EGG FREE)(QUAD)INFLUENZA VACC 0.5ML SYRINGE 18YRS & OLDER IM ONE (09:00)
[2021-03-04] MEDS: BUDESONIDE 180MCG INHALER (PULMICORT FLEXHALER) INH SCH ×2 (11:20→20:00)
[2021-03-04 14:19] LABS: BLOOD UREA NITROGEN 24 MG/DL (7-18); CALCIUM LEVEL 8.3 MG/DL (8.5-10.1); CARBON DIOXIDE LEVEL 37 MEQ/L (21-32); CHLORIDE LEVEL 91 MEQ/L (98-107); CREATININE FOR GFR 1.21 MG/DL (0.70-1.30); GLOMERULAR FILTRATION RATE > 60.0 (>56); GLUCOSE, FASTING 325 MG/DL (70-100); PHOSPHORUS LEVEL 2.7 MG/DL (2.5-4.9); POTASSIUM SERUM 3.5 MEQ/L (3.5-5.1); SODIUM LEVEL 134 MEQ/L (136-145)
[2021-03-04] MEDS: ATORVASTATIN 20 MG TAB PO SCH (21:38)
[2021-03-05] MEDS: BENZONATATE 100MG CAPSULE PO SCH ×3 (05:26→21:52)
[2021-03-05 05:30] VITALS: BP 129/85
[2021-03-05 06:20] LABS: MEAN CORPUSCULAR HEMOGLOBIN 28.2 pg (27.0-33.0); MEAN CORPUSCULAR HGB CONC 31.1 g/dl (32.0-36.5); MEAN CORPUSCULAR VOLUME 90.7 fl (80.0-96.0); PLATELET COUNT, AUTOMATED 204 10^3/uL (150-450); RED BLOOD COUNT 4.96 10^6/uL (4.30-6.10); WHITE BLOOD COUNT 8.2 10^3/uL (4.0-10.0)
[2021-03-05 06:39] LABS: BLOOD UREA NITROGEN 18 MG/DL (7-18); CALCIUM LEVEL 8.8 MG/DL (8.5-10.1); CARBON DIOXIDE LEVEL 36 MEQ/L (21-32); CHLORIDE LEVEL 95 MEQ/L (98-107); CREATININE FOR GFR 0.96 MG/DL (0.70-1.30); GLOMERULAR FILTRATION RATE > 60.0 (>56); GLUCOSE, FASTING 188 MG/DL (70-100); PHOSPHORUS LEVEL 2.4 MG/DL (2.5-4.9); POTASSIUM SERUM 3.2 MEQ/L (3.5-5.1); SODIUM LEVEL 138 MEQ/L (136-145)
[2021-03-05] MEDS: BUDESONIDE 180MCG INHALER (PULMICORT FLEXHALER) INH SCH ×2 (07:38→19:31)
[2021-03-05] MEDS ORDERED: LEVALBUTEROL 1.25 MG/0.5 ML CONCENTRATE NEB INH PRN (08:05)
[2021-03-05] MEDS ORDERED: K-PHOS ORIGINAL (POT.ACID PHOSPHATE) 500MG TAB PO ONE (08:30)
[2021-03-05] MEDS ORDERED: POTASSIUM CHLORIDE 10MEQ SR TABLET PO ONE ×2 (09:00→12:30)
[2021-03-05] MEDS ORDERED: FUROSEMIDE 40MG/4ML VIAL (J1940) IV SCH (09:00)
[2021-03-05] MEDS ORDERED: FUROSEMIDE 40 MG TAB PO SCH (09:00)
[2021-03-05] MEDS: ASPIRIN 81MG ENTERIC TABLET PO SCH (09:04)
[2021-03-05] MEDS: APIXABAN 5 MG TAB (ELIQUIS) PO SCH ×2 (09:05→21:52)
[2021-03-05] MEDS: DIVALPROEX 500 MG TAB PO SCH ×2 (09:05→21:51)
[2021-03-05] MEDS: FUROSEMIDE 40MG/4ML VIAL (J1940) IV SCH (09:08)
[2021-03-05] MEDS: METOPROLOL TARTRATE 100MG TAB PO SCH ×2 (09:08→21:53)
[2021-03-05] MEDS: DIGOXIN 0.25 MG TAB PO SCH (09:08)
[2021-03-05] MEDS: LEVEMIR (INSULIN DETEMIR) 1 UNITS/0.01ML SC SCH ×2 (09:09→21:53)
[2021-03-05] MEDS: HumaLOG INSULIN (NovoLOG) PER UNIT SC SCH ×4 (09:09→21:53)
[2021-03-05] MEDS: PANTOPRAZOLE 40MG TAB (PROTONIX) PO SCH ×2 (09:11→21:52)
[2021-03-05 10:00] VITALS: BP 135/91
[2021-03-05] MEDS: COMBIVENT RESPIMAT 100-20MCG INHALER 4GM INH SCH ×3 (11:08→19:30)
[2021-03-05] MEDS ORDERED: HumaLOG INSULIN (NovoLOG) PER UNIT SC ONE (13:45)
[2021-03-05 14:00] VITALS: BP 129/84
[2021-03-05 18:00] VITALS: BP 134/84
[2021-03-05] MEDS: ATORVASTATIN 20 MG TAB PO SCH (21:52)
[2021-03-05 22:00] VITALS: BP 142/84
[2021-03-05] MEDS ORDERED: CEPACOL LOZENGE PO PRN (22:40)
[2021-03-06 02:00] VITALS: BP 133/64
[2021-03-06] MEDS: BENZONATATE 100MG CAPSULE PO SCH ×3 (05:48→21:44)
[2021-03-06 06:00] VITALS: BP 126/89
[2021-03-06 07:07] LABS: HEMATOCRIT 46.5 % (42.0-52.0); HEMOGLOBIN 14.6 g/dl (13.5-17.5); MEAN CORPUSCULAR HEMOGLOBIN 28.3 pg (27.0-33.0); MEAN CORPUSCULAR HGB CONC 31.4 g/dl (32.0-36.5); MEAN CORPUSCULAR VOLUME 90.3 fl (80.0-96.0); PLATELET COUNT, AUTOMATED 221 10^3/uL (150-450); RED BLOOD COUNT 5.15 10^6/uL (4.30-6.10); WHITE BLOOD COUNT 6.9 10^3/uL (4.0-10.0)
[2021-03-06 07:33] LABS: BLOOD UREA NITROGEN 18 MG/DL (7-18); CALCIUM LEVEL 9.5 MG/DL (8.5-10.1); CARBON DIOXIDE LEVEL 33 MEQ/L (21-32); CHLORIDE LEVEL 98 MEQ/L (98-107); CREATININE FOR GFR 0.94 MG/DL (0.70-1.30); GLOMERULAR FILTRATION RATE > 60.0 (>56); GLUCOSE, FASTING 229 MG/DL (70-100); MAGNESIUM LEVEL 2.1 MG/DL (1.8-2.4); PHOSPHORUS LEVEL 2.7 MG/DL (2.5-4.9); POTASSIUM SERUM 3.6 MEQ/L (3.5-5.1); SODIUM LEVEL 136 MEQ/L (136-145)
[2021-03-06] MEDS: COMBIVENT RESPIMAT 100-20MCG INHALER 4GM INH SCH ×4 (07:33→18:08)
[2021-03-06] MEDS: BUDESONIDE 180MCG INHALER (PULMICORT FLEXHALER) INH SCH ×2 (07:33→18:08)
[2021-03-06] MEDS: LEVEMIR (INSULIN DETEMIR) 1 UNITS/0.01ML SC SCH ×2 (08:44→20:44)
[2021-03-06] MEDS: ASPIRIN 81MG ENTERIC TABLET PO SCH (08:45)
[2021-03-06] MEDS: METOPROLOL TARTRATE 100MG TAB PO SCH ×2 (08:46→20:43)
[2021-03-06] MEDS: DIGOXIN 0.25 MG TAB PO SCH (08:47)
[2021-03-06] MEDS: PANTOPRAZOLE 40MG TAB (PROTONIX) PO SCH ×2 (08:47→20:43)
[2021-03-06] MEDS: APIXABAN 5 MG TAB (ELIQUIS) PO SCH ×2 (08:47→20:43)
[2021-03-06] MEDS: DIVALPROEX 500 MG TAB PO SCH ×2 (08:48→20:42)
[2021-03-06] MEDS: HumaLOG INSULIN (NovoLOG) PER UNIT SC SCH ×4 (08:49→20:48)
[2021-03-06] MEDS: FUROSEMIDE 40MG/4ML VIAL (J1940) IV SCH (08:49)
[2021-03-06 10:00] VITALS: BP 124/88
[2021-03-06] MEDS ORDERED: HumaLOG INSULIN (NovoLOG) PER UNIT SC ONE ×2 (11:55→12:00)
[2021-03-06] MEDS ORDERED: DILT60TA PO (12:42)
[2021-03-06] MEDS ORDERED: BUDE180INH INH (12:44)
[2021-03-06] MEDS ORDERED: BENZ-18 PO (12:44)
[2021-03-06] MEDS ORDERED: GLIP5TAB20 PO ×2 (12:45→12:46)
[2021-03-06] MEDS ORDERED: TORS20TA2 PO (12:54)
[2021-03-06] MEDS ORDERED: LISI2.5T9 PO (13:01)
[2021-03-06 14:00] VITALS: BP 131/71
[2021-03-06 18:00] VITALS: BP 137/79
[2021-03-06] MEDS: ATORVASTATIN 20 MG TAB PO SCH (20:43)
[2021-03-06 22:00] VITALS: BP 135/79
[2021-03-07 02:00] VITALS: BP 138/86
[2021-03-07] MEDS: BENZONATATE 100MG CAPSULE PO SCH ×3 (05:39→21:49)
[2021-03-07 06:00] VITALS: BP 137/85
[2021-03-07] MEDS: COMBIVENT RESPIMAT 100-20MCG INHALER 4GM INH SCH ×4 (07:46→19:21)
[2021-03-07] MEDS: BUDESONIDE 180MCG INHALER (PULMICORT FLEXHALER) INH SCH ×2 (07:46→19:21)
[2021-03-07] MEDS: HumaLOG INSULIN (NovoLOG) PER UNIT SC SCH ×4 (09:00→21:49)
[2021-03-07] MEDS: PANTOPRAZOLE 40MG TAB (PROTONIX) PO SCH ×2 (09:02→21:49)
[2021-03-07] MEDS: DIGOXIN 0.25 MG TAB PO SCH (09:02)
[2021-03-07] MEDS: METOPROLOL TARTRATE 100MG TAB PO SCH ×3 (09:02→17:35)
[2021-03-07] MEDS: LEVEMIR (INSULIN DETEMIR) 1 UNITS/0.01ML SC SCH ×2 (09:03→21:50)
[2021-03-07] MEDS: ASPIRIN 81MG ENTERIC TABLET PO SCH (09:03)
[2021-03-07] MEDS: APIXABAN 5 MG TAB (ELIQUIS) PO SCH ×2 (09:03→21:49)
[2021-03-07] MEDS: DIVALPROEX 500 MG TAB PO SCH ×2 (09:04→21:49)
[2021-03-07 10:00] VITALS: BP 131/91
[2021-03-07] MEDS ORDERED: TORS20TA2 PO (12:04)
[2021-03-07] MEDS: AMIODARONE 200 MG TAB (PACERONE) PO SCH ×2 (12:46→17:35)
[2021-03-07 14:00] VITALS: BP 129/80
[2021-03-07 18:00] VITALS: BP 133/85
[2021-03-07] MEDS: ATORVASTATIN 20 MG TAB PO SCH (21:49)
[2021-03-07 22:00] VITALS: BP 132/82
[2021-03-08] MEDS: METOPROLOL TARTRATE 100MG TAB PO SCH ×5 (00:46→17:49)
[2021-03-08] MEDS: AMIODARONE 200 MG TAB (PACERONE) PO SCH ×4 (00:46→17:50)
[2021-03-08] MEDS: BENZONATATE 100MG CAPSULE PO SCH ×3 (05:50→21:42)
[2021-03-08 06:25] LABS: HEMATOCRIT 46.1 % (42.0-52.0); HEMOGLOBIN 14.4 g/dl (13.5-17.5); MEAN CORPUSCULAR HEMOGLOBIN 28.2 pg (27.0-33.0); MEAN CORPUSCULAR HGB CONC 31.2 g/dl (32.0-36.5); MEAN CORPUSCULAR VOLUME 90.4 fl (80.0-96.0); PLATELET COUNT, AUTOMATED 228 10^3/uL (150-450); WHITE BLOOD COUNT 6.9 10^3/uL (4.0-10.0)
[2021-03-08 06:36] VITALS: BP 142/92
[2021-03-08 06:55] LABS: BLOOD UREA NITROGEN 17 MG/DL (7-18); CARBON DIOXIDE LEVEL 31 MEQ/L (21-32); CHLORIDE LEVEL 102 MEQ/L (98-107); CREATININE FOR GFR 0.76 MG/DL (0.70-1.30); GLOMERULAR FILTRATION RATE > 60.0 (>56); GLUCOSE, FASTING 216 MG/DL (70-100); MAGNESIUM LEVEL 1.8 MG/DL (1.8-2.4); POTASSIUM SERUM 4.3 MEQ/L (3.5-5.1); SODIUM LEVEL 139 MEQ/L (136-145)
[2021-03-08] MEDS: BUDESONIDE 180MCG INHALER (PULMICORT FLEXHALER) INH SCH ×2 (07:26→19:35)
[2021-03-08] MEDS: COMBIVENT RESPIMAT 100-20MCG INHALER 4GM INH SCH ×4 (07:26→19:34)
[2021-03-08] MEDS: LEVEMIR (INSULIN DETEMIR) 1 UNITS/0.01ML SC SCH ×2 (08:13→21:42)
[2021-03-08] MEDS: HumaLOG INSULIN (NovoLOG) PER UNIT SC SCH ×4 (08:14→21:43)
[2021-03-08] MEDS: APIXABAN 5 MG TAB (ELIQUIS) PO SCH ×2 (08:15→21:42)
[2021-03-08] MEDS: ASPIRIN 81MG ENTERIC TABLET PO SCH (08:15)
[2021-03-08] MEDS: DIVALPROEX 500 MG TAB PO SCH ×2 (08:15→21:42)
[2021-03-08] MEDS: PANTOPRAZOLE 40MG TAB (PROTONIX) PO SCH ×2 (08:15→21:42)
[2021-03-08] MEDS: DIGOXIN 0.125 MG TAB PO SCH (08:16)
[2021-03-08 10:00] VITALS: BP 133/79
[2021-03-08 14:00] VITALS: BP 133/83
[2021-03-08] MEDS: TORSEMIDE 20 MG TAB PO SCH (18:21)
[2021-03-08] MEDS: ATORVASTATIN 20 MG TAB PO SCH (21:41)
[2021-03-08 22:00] VITALS: BP 140/90
[2021-03-09] MEDS: METOPROLOL TARTRATE 100MG TAB PO SCH ×4 (00:16→18:06)
[2021-03-09] MEDS: AMIODARONE 200 MG TAB (PACERONE) PO SCH ×4 (00:16→18:06)
[2021-03-09] MEDS: BENZONATATE 100MG CAPSULE PO SCH ×3 (05:21→20:27)
[2021-03-09 06:00] VITALS: BP 134/81
[2021-03-09] MEDS: COMBIVENT RESPIMAT 100-20MCG INHALER 4GM INH SCH ×3 (07:40→15:33)
[2021-03-09] MEDS: BUDESONIDE 180MCG INHALER (PULMICORT FLEXHALER) INH SCH (07:41)
[2021-03-09] MEDS: LEVEMIR (INSULIN DETEMIR) 1 UNITS/0.01ML SC SCH ×2 (08:45→20:27)
[2021-03-09] MEDS: HumaLOG INSULIN (NovoLOG) PER UNIT SC SCH ×3 (08:46→18:05)
[2021-03-09] MEDS: ASPIRIN 81MG ENTERIC TABLET PO SCH (08:46)
[2021-03-09] MEDS: TORSEMIDE 20 MG TAB PO SCH (08:46)
[2021-03-09] MEDS: DIGOXIN 0.125 MG TAB PO SCH (08:47)
[2021-03-09] MEDS: APIXABAN 5 MG TAB (ELIQUIS) PO SCH ×2 (08:47→20:27)
[2021-03-09] MEDS: PANTOPRAZOLE 40MG TAB (PROTONIX) PO SCH ×2 (08:47→20:27)
[2021-03-09] MEDS: DIVALPROEX 500 MG TAB PO SCH ×2 (08:49→20:28)
[2021-03-09 10:00] VITALS: BP 132/81
[2021-03-09] MEDS ORDERED: [UNRECOGNIZED DRUG - CODE] PO (13:43)
[2021-03-09] MEDS ORDERED: DIGO0.123 PO (13:43)
[2021-03-09] MEDS ORDERED: LOPR1TAB7 PO (13:43)
[2021-03-09] MEDS ORDERED: AMIO200T49 PO (13:43)
[2021-03-09 14:00] VITALS: BP 127/68
[2021-03-09] MEDS ORDERED: METOPROLOL TARTRATE 100MG TAB PO ONE (18:10)
[2021-03-09] MEDS ORDERED: METO100T5 PO (18:13)
[2021-03-09 18:35] VITALS: BP 126/69
[2021-03-09] MEDS ORDERED: METOPROLOL TART 50 MG TAB PO ONE (19:00)
[2021-03-09] MEDS: ATORVASTATIN 20 MG TAB PO SCH (20:28)
== END 2021-03-09 21:35 | disposition home health service (06) | DRG 201 ==
LOC: M ED 18:18 → M ED INP 22:11 → ENRESERV 03-03 00:59 → M PCU 03-03 02:17 → M MSPAV 03-04 17:56
PROVIDERS: ADMIT Internal Medicine; ATTEND Internal Medicine Nephrology
DX: I48.91 Unspecified atrial fibrillation (principal); I50.21 Acute systolic (congestive) heart failure; E87.2 Acidosis; B97.4 Respiratory syncytial virus as the cause of diseases classified elsewhere; I11.0 Hypertensive heart disease with heart failure; E11.9 Type 2 diabetes mellitus without complications; K21.9 Gastro-esophageal reflux disease without esophagitis; E66.9 Obesity, unspecified; E78.5 Hyperlipidemia, unspecified; I87.8 Other specified disorders of veins; K22.70 Barrett's esophagus without dysplasia; I35.0 Nonrheumatic aortic (valve) stenosis; J06.9 Acute upper respiratory infection, unspecified; Z79.899 Other long term (current) drug therapy; G47.33 Obstructive sleep apnea (adult) (pediatric); Z91.19 Patient's noncompliance with other medical treatment and regimen; Z91.14 Patient's other noncompliance with medication regimen; Z87.891 Personal history of nicotine dependence; G40.A09 Absence epileptic syndrome, not intractable, without status epilepticus; E87.6 Hypokalemia

== ENCOUNTER 2021-05-13 15:00 | Inpatient (IN) | payer OTHER ==
[~2021-05-13] VITALS: Ht 162.6 cm; Wt 98.5 kg
[~2021-05-13 15:00] MED LIST changes: +ACET650T61 PO; +ALBU8.5H INH; +AMIO200T49 PO; +BENZ-18 PO; +BUDE180INH INH; +DIGO0.123 PO; +DILT60TA PO; +GLIP10TA18 PO; +GLIP5TAB20 PO; +LISI2.5T9 PO; +LOPR1TAB7 PO; +METO100T5 PO; +STEG15TA PO; +[UNRECOGNIZED DRUG - CODE] PO
[2021-05-13 15:35] LABS: BASO # 0.1 10^3/uL (0.0-0.2); BASO % 0.5 % (0.0-1.0); EOS # 0.1 10^3/uL (0.0-0.5); EOS % 1.4 % (0.0-3.0); HEMATOCRIT 44.8 % (42.0-52.0); HEMOGLOBIN 14.3 g/dl (13.5-17.5); LYMPH # 1.4 10^3/uL (1.5-5.0); MEAN CORPUSCULAR HEMOGLOBIN 28.7 pg (27.0-33.0); MEAN CORPUSCULAR HGB CONC 31.9 g/dl (32.0-36.5); MEAN CORPUSCULAR VOLUME 89.8 fl (80.0-96.0); MONO # 0.9 10^3/uL (0.0-0.8); MONO % 9.4 % (2.0-8.0); NEUTROPHILS # 6.9 10^3/uL (1.5-8.5); NEUTROPHILS % 73.5 % (36.0-66.0); PLATELET COUNT, AUTOMATED 219 10^3/uL (150-450); RED BLOOD COUNT 4.99 10^6/uL (4.30-6.10); WHITE BLOOD COUNT 9.4 10^3/uL (4.0-10.0)
[2021-05-13] MEDS ORDERED: METOPROLOL TARTRATE 100MG TAB PO ONE (15:40)
[2021-05-13] MEDS: METOPROLOL 5 MG/5 ML VIAL IV SCH ×3 (15:50→16:00)
[2021-05-13 15:52] LABS: INR 0.99; PROTHROMBIN TIME 13.5 SECONDS (12.7-14.5)
[2021-05-13 15:53] LABS: PARTIAL THROMBOPLASTIN TIME 32.2 SECONDS (25.9-37.0)
[2021-05-13] MEDS ORDERED: FUROSEMIDE 40MG/4ML VIAL (J1940) IV ONE (16:00)
[2021-05-13 16:10] LABS: CK-MB VALUE MASS 3.2 NG/ML (<3.6); MB/CK RELATIVE INDEX 5.16 (< OR =4)
[2021-05-13 16:21] LABS: ALT/SGPT 41 U/L (12-78); BILIRUBIN,DIRECT < 0.1 MG/DL (0.0-0.2); BILIRUBIN,TOTAL 0.3 MG/DL (0.2-1.0); BLOOD UREA NITROGEN 19 MG/DL (7-18); CALCIUM LEVEL 8.6 MG/DL (8.5-10.1); CARBON DIOXIDE LEVEL 24 MEQ/L (21-32); CHLORIDE LEVEL 105 MEQ/L (98-107); CREATININE FOR GFR 0.93 MG/DL (0.70-1.30); FREE T4 1.17 NG/DL (0.76-1.46); GLOMERULAR FILTRATION RATE > 60.0 (>56); GLUCOSE, FASTING 312 MG/DL (70-100); NT-PRO BNP 1912 PG/ML (<125); POTASSIUM SERUM 3.6 MEQ/L (3.5-5.1); SODIUM LEVEL 137 MEQ/L (136-145); TOTAL PROTEIN 6.7 GM/DL (6.4-8.2)
[2021-05-13 16:42] LABS: DIGOXIN LEVEL 0.1 NG/ML (0.5-2.0); VALPROIC ACID (DEPAKOTE) < 3.0 UG/ML (50.0-100.0)
[2021-05-13] MEDS ORDERED: DIGOXIN INJ 0.5 MG/2 ML AMP (J1160) IV STA (17:17)
[2021-05-13] MEDS ORDERED: METOPROLOL TART 50 MG TAB PO ONE (17:20)
[2021-05-13] MEDS ORDERED: GLUCAGON INJ 1MG VIAL SC PRN (17:40)
[2021-05-13] MEDS ORDERED: GLUCOSE 4GM CHEW TABLET PO PRN (17:40)
[2021-05-13] MEDS ORDERED: DEXTROSE 50% 50 ML SYRINGE IV PRN (17:40)
[2021-05-13] MEDS ORDERED: POTASSIUM CHLORIDE 10MEQ SR TABLET PO ONE (18:05)
[2021-05-13] MEDS ORDERED: DIGO0.253 PO (18:09)
[2021-05-13] MEDS ORDERED: LEVE10003 PO (18:09)
[2021-05-13] MEDS ORDERED: GLIP10TA18 PO (18:09)
[2021-05-13] MEDS ORDERED: DIVA500T94 PO (18:37)
[2021-05-13] MEDS ORDERED: TORS20TA2 PO (18:37)
[2021-05-13] MEDS ORDERED: METO100T5 PO (18:37)
[2021-05-13] MEDS ORDERED: HOME MED LIST COMPLETE! XX SCH (18:40)
[2021-05-13] MEDS: AMIODARONE 200 MG TAB (PACERONE) PO SCH ×2 (19:11→23:09)
[2021-05-13 19:23] LABS: HEMOGLOBIN A1c 10.9 %
[2021-05-13] MEDS: APIXABAN 5 MG TAB (ELIQUIS) PO SCH (20:43)
[2021-05-13 22:13] VITALS: BP_SYST 140
[2021-05-13 22:24] VITALS: BP 135/94
[2021-05-13] MEDS: DIVALPROEX 500 MG TAB PO SCH (22:31)
[2021-05-13] MEDS: METOPROLOL TART 50 MG TAB PO SCH (23:09)
[2021-05-13] MEDS: ATORVASTATIN 20 MG TAB PO SCH (23:09)
[2021-05-13] MEDS: HumaLOG INSULIN (NovoLOG) PER UNIT SC SCH (23:18)
[2021-05-13] MEDS: FUROSEMIDE 100MG/10ML VIAL (J1940) IV SCH (23:30)
[2021-05-14] VITALS (7 sets, daily range): BP systolic 111–146; BP diastolic 68–94
[2021-05-14 00:35] LABS: CK-MB VALUE MASS 2.3 NG/ML (<3.6); MB/CK RELATIVE INDEX 4.6 (< OR =4)
[2021-05-14] MEDS: FUROSEMIDE 100MG/10ML VIAL (J1940) IV SCH ×4 (05:20→23:25)
[2021-05-14] MEDS: AMIODARONE 200 MG TAB (PACERONE) PO SCH ×4 (05:21→20:08)
[2021-05-14] MEDS: METOPROLOL TART 50 MG TAB PO SCH ×2 (05:21→20:09)
[2021-05-14] MEDS: HumaLOG INSULIN (NovoLOG) PER UNIT SC SCH ×4 (08:54→20:06)
[2021-05-14] MEDS: APIXABAN 5 MG TAB (ELIQUIS) PO SCH ×2 (08:55→20:06)
[2021-05-14] MEDS: levETIRAcetam 250MG TABLET (KEPPRA) PO SCH ×2 (08:55→10:00)
[2021-05-14] MEDS: PANTOPRAZOLE 40MG TAB (PROTONIX) PO SCH (08:56)
[2021-05-14] MEDS ORDERED: DIGOXIN 0.25 MG TAB PO SCH (09:00)
[2021-05-14] MEDS: LEVEMIR (INSULIN DETEMIR) 1 UNITS/0.01ML SC SCH ×2 (09:12→20:06)
[2021-05-14] MEDS: DIVALPROEX 500 MG TAB PO SCH (10:00)
[2021-05-14 10:25] LABS: HEMATOCRIT 47.7 % (42.0-52.0); MEAN CORPUSCULAR HEMOGLOBIN 28.5 pg (27.0-33.0); MEAN CORPUSCULAR HGB CONC 31.4 g/dl (32.0-36.5); MEAN CORPUSCULAR VOLUME 90.5 fl (80.0-96.0); PLATELET COUNT, AUTOMATED 255 10^3/uL (150-450); RED BLOOD COUNT 5.27 10^6/uL (4.30-6.10); WHITE BLOOD COUNT 11.4 10^3/uL (4.0-10.0)
[2021-05-14] MEDS: AMIODARONE HCL 150 MG in IV 1 EA IV SCH ×2 (10:30→11:08)
[2021-05-14] MEDS ORDERED: METOPROLOL TART 50 MG TAB PO ONE (10:30)
[2021-05-14 10:53] LABS: CK-MB VALUE MASS 1.5 NG/ML (<3.6); MB/CK RELATIVE INDEX 3.26 (< OR =4)
[2021-05-14 11:07] LABS: BLOOD UREA NITROGEN 23 MG/DL (7-18); CARBON DIOXIDE LEVEL 29 MEQ/L (21-32); CHLORIDE LEVEL 97 MEQ/L (98-107); CREATININE FOR GFR 1.29 MG/DL (0.70-1.30); GLOMERULAR FILTRATION RATE > 60.0 (>56); GLUCOSE, FASTING 414 MG/DL (70-100); POTASSIUM SERUM 3.7 MEQ/L (3.5-5.1); SODIUM LEVEL 135 MEQ/L (136-145)
[2021-05-14 16:56] LABS: CK-MB VALUE MASS 1.7 NG/ML (<3.6); MB/CK RELATIVE INDEX 3.95 (< OR =4)
[2021-05-14] MEDS: ATORVASTATIN 20 MG TAB PO SCH (20:07)
[2021-05-15] VITALS: BP 126/76
[2021-05-15 04:00] VITALS: BP 115/61
[2021-05-15] MEDS: FUROSEMIDE 100MG/10ML VIAL (J1940) IV SCH ×4 (05:27→23:11)
[2021-05-15 05:51] LABS: HEMATOCRIT 45.1 % (42.0-52.0); HEMOGLOBIN 14.5 g/dl (13.5-17.5); MEAN CORPUSCULAR HEMOGLOBIN 28.8 pg (27.0-33.0); MEAN CORPUSCULAR HGB CONC 32.2 g/dl (32.0-36.5); MEAN CORPUSCULAR VOLUME 89.5 fl (80.0-96.0); PLATELET COUNT, AUTOMATED 250 10^3/uL (150-450); RED BLOOD COUNT 5.04 10^6/uL (4.30-6.10); WHITE BLOOD COUNT 10.9 10^3/uL (4.0-10.0)
[2021-05-15 06:13] LABS: BLOOD UREA NITROGEN 29 MG/DL (7-18); CALCIUM LEVEL 8.8 MG/DL (8.5-10.1); CARBON DIOXIDE LEVEL 28 MEQ/L (21-32); CHLORIDE LEVEL 98 MEQ/L (98-107); CREATININE FOR GFR 1.25 MG/DL (0.70-1.30); GLOMERULAR FILTRATION RATE > 60.0 (>56); GLUCOSE, FASTING 324 MG/DL (70-100); POTASSIUM SERUM 3.6 MEQ/L (3.5-5.1); SODIUM LEVEL 137 MEQ/L (136-145)
[2021-05-15 08:00] VITALS: BP 147/97
[2021-05-15] MEDS: HumaLOG INSULIN (NovoLOG) PER UNIT SC SCH ×4 (08:10→21:05)
[2021-05-15] MEDS: LEVEMIR (INSULIN DETEMIR) 1 UNITS/0.01ML SC SCH ×2 (08:11→21:05)
[2021-05-15] MEDS: METOPROLOL TART 50 MG TAB PO SCH ×2 (08:13→21:04)
[2021-05-15] MEDS: APIXABAN 5 MG TAB (ELIQUIS) PO SCH ×2 (08:14→21:04)
[2021-05-15] MEDS: AMIODARONE 200 MG TAB (PACERONE) PO SCH ×4 (08:14→21:04)
[2021-05-15] MEDS: DIGOXIN 0.125 MG TAB PO SCH (08:14)
[2021-05-15] MEDS: PANTOPRAZOLE 40MG TAB (PROTONIX) PO SCH (08:14)
[2021-05-15] MEDS: POTASSIUM CHLORIDE 10MEQ SR TABLET PO SCH ×3 (08:43→21:05)
[2021-05-15 12:00] VITALS: BP 146/90
[2021-05-15 16:00] VITALS: BP 131/80
[2021-05-15 16:08] LABS: MAGNESIUM LEVEL 1.6 MG/DL (1.7-2.2)
[2021-05-15 20:00] VITALS: BP 132/86
[2021-05-15] MEDS: ATORVASTATIN 20 MG TAB PO SCH (21:04)
[2021-05-15] MEDS ORDERED: MAG SULF 1GM/100ML (MAG RUN) 1 GM in IV 1 EA IV ONE (22:05)
[2021-05-16] VITALS (7 sets, daily range): BP systolic 124–139; BP diastolic 75–78
[2021-05-16] MEDS: FUROSEMIDE 100MG/10ML VIAL (J1940) IV SCH ×2 (06:00→11:33)
[2021-05-16 06:17] LABS: HEMATOCRIT 45.7 % (42.0-52.0); HEMOGLOBIN 14.4 g/dl (13.5-17.5); MEAN CORPUSCULAR HEMOGLOBIN 28.8 pg (27.0-33.0); MEAN CORPUSCULAR HGB CONC 31.5 g/dl (32.0-36.5); MEAN CORPUSCULAR VOLUME 91.4 fl (80.0-96.0); PLATELET COUNT, AUTOMATED 249 10^3/uL (150-450); WHITE BLOOD COUNT 10.8 10^3/uL (4.0-10.0)
[2021-05-16 06:47] LABS: BLOOD UREA NITROGEN 28 MG/DL (7-18); CARBON DIOXIDE LEVEL 33 MEQ/L (21-32); CHLORIDE LEVEL 97 MEQ/L (98-107); CREATININE FOR GFR 1.16 MG/DL (0.70-1.30); GLOMERULAR FILTRATION RATE > 60.0 (>56); GLUCOSE, FASTING 286 MG/DL (70-100); NT-PRO BNP 322 PG/ML (<125); POTASSIUM SERUM 3.7 MEQ/L (3.5-5.1); SODIUM LEVEL 136 MEQ/L (136-145)
[2021-05-16] MEDS: HumaLOG INSULIN (NovoLOG) PER UNIT SC SCH ×2 (08:01→11:53)
[2021-05-16] MEDS: PANTOPRAZOLE 40MG TAB (PROTONIX) PO SCH (08:02)
[2021-05-16] MEDS: APIXABAN 5 MG TAB (ELIQUIS) PO SCH (08:02)
[2021-05-16] MEDS: LEVEMIR (INSULIN DETEMIR) 1 UNITS/0.01ML SC SCH (08:02)
[2021-05-16] MEDS: DIGOXIN 0.125 MG TAB PO SCH (08:02)
[2021-05-16] MEDS: POTASSIUM CHLORIDE 10MEQ SR TABLET PO SCH (08:02)
[2021-05-16] MEDS: AMIODARONE 200 MG TAB (PACERONE) PO SCH ×2 (08:03→11:53)
[2021-05-16] MEDS: METOPROLOL TART 50 MG TAB PO SCH (08:03)
[2021-05-16] MEDS ORDERED: POTA-136 PO (11:32)
[2021-05-16] MEDS ORDERED: AMIO200T49 PO (11:32)
[2021-05-16] MEDS ORDERED: DIGO0.123 PO (11:32)
== END 2021-05-16 13:58 | disposition home or self-care (01) | DRG 201 ==
LOC: M ED 15:00 → M ED INP 17:39 → M PCU 22:07
PROVIDERS: ADMIT Family Medicine; ATTEND Family Medicine
DX: I48.91 Unspecified atrial fibrillation (principal); I11.0 Hypertensive heart disease with heart failure; I50.32 Chronic diastolic (congestive) heart failure; R56.01 Complex febrile convulsions; E78.6 Lipoprotein deficiency; E11.9 Type 2 diabetes mellitus without complications; K21.9 Gastro-esophageal reflux disease without esophagitis; K22.711 Barrett's esophagus with high grade dysplasia; Z87.891 Personal history of nicotine dependence; Z79.01 Long term (current) use of anticoagulants; Z79.51 Long term (current) use of inhaled steroids; Z20.822 Contact with and (suspected) exposure to COVID-19; Z79.899 Other long term (current) drug therapy; Z79.84 Long term (current) use of oral hypoglycemic drugs; E66.01 Morbid (severe) obesity due to excess calories; Z91.14 Patient's other noncompliance with medication regimen; Z91.19 Patient's noncompliance with other medical treatment and regimen

== ENCOUNTER 2021-08-10 14:11 | Emergency (ER) | payer OTHER ==
[~2021-08-10] VITALS: Ht 162.6 cm; Wt 103.4 kg
[~2021-08-10 14:11] MED LIST changes: +DIVA500T94 PO; +LEVE10003 PO; +POTA-136 PO
[2021-08-10] MEDS ORDERED: TRUL10IN (14:31)
[2021-08-10 14:53] LABS: BASO # 0.1 10^3/uL (0.0-0.2); BASO % 0.6 % (0.0-1.0); EOS # 0.1 10^3/uL (0.0-0.5); EOS % 1.3 % (0.0-3.0); HEMATOCRIT 45.5 % (42.0-52.0); HEMOGLOBIN 15.3 g/dl (13.5-17.5); LYMPH # 1.7 10^3/uL (1.5-5.0); LYMPH % 18.1 % (24.0-44.0); MEAN CORPUSCULAR HEMOGLOBIN 29.7 pg (27.0-33.0); MEAN CORPUSCULAR HGB CONC 33.6 g/dl (32.0-36.5); MEAN CORPUSCULAR VOLUME 88.3 fl (80.0-96.0); MONO # 0.9 10^3/uL (0.0-0.8); MONO % 9.6 % (2.0-8.0); NEUTROPHILS # 6.7 10^3/uL (1.5-8.5); NEUTROPHILS % 70.2 % (36.0-66.0); PLATELET COUNT, AUTOMATED 233 10^3/uL (150-450); RED BLOOD COUNT 5.15 10^6/uL (4.30-6.10); WHITE BLOOD COUNT 9.5 10^3/uL (4.0-10.0)
[2021-08-10 15:04] LABS: INR 0.97; PROTHROMBIN TIME 13.3 SECONDS (12.7-14.5)
[2021-08-10 15:05] LABS: PARTIAL THROMBOPLASTIN TIME 31.2 SECONDS (25.9-37.0)
[2021-08-10 15:49] LABS: CK-MB VALUE MASS 2.5 NG/ML (<3.6); MB/CK RELATIVE INDEX 3.52 (< OR =4)
[2021-08-10 16:06] LABS: ALBUMIN 3.5 GM/DL (3.2-5.2); ALT/SGPT 31 U/L (12-78); BILIRUBIN,DIRECT < 0.1 MG/DL (0.0-0.2); BILIRUBIN,TOTAL 0.6 MG/DL (0.2-1.0); BLOOD UREA NITROGEN 24 MG/DL (7-18); CALCIUM LEVEL 10.2 MG/DL (8.5-10.1); CARBON DIOXIDE LEVEL 25 MEQ/L (21-32); CHLORIDE LEVEL 100 MEQ/L (98-107); CREATININE FOR GFR 1.21 MG/DL (0.70-1.30); ETHYL ALCOHOL (ETHANOL) < 0.003 % (0.000-0.010); FREE T4 1.08 NG/DL (0.76-1.46); GLOMERULAR FILTRATION RATE > 60.0 (>56); GLUCOSE, FASTING 402 MG/DL (70-100); MAGNESIUM LEVEL 2.2 MG/DL (1.8-2.4); POTASSIUM SERUM 3.9 MEQ/L (3.5-5.1); SODIUM LEVEL 137 MEQ/L (136-145); TOTAL PROTEIN 7.6 GM/DL (6.4-8.2)
[2021-08-10 16:09] LABS: AMPHETAMINES LEVEL URINE NEGATIVE (NEGATIVE); BARBITURATES URINE NEGATIVE (NEGATIVE); BENZODIAZEPINES URINE NEGATIVE (NEGATIVE); CANNABINOIDS URINE NEGATIVE (NEGATIVE); COCAINE METABOLITE URINE NEGATIVE (NEGATIVE); METHADONE URINE NEGATIVE (NEGATIVE); OPIATES URINE NEGATIVE (NEGATIVE); PHENCYCLIDINE URINE NEGATIVE (NEGATIVE)
[2021-08-10 17:03] LABS: RSV AMPLIFICATION NEGATIVE (NEGATIVE)
[2021-08-10 17:30] VITALS: BP 138/98
== END 2021-08-10 17:38 | disposition home or self-care (01) ==
LOC: M ED 14:11
DX: I48.91 Unspecified atrial fibrillation (principal); R94.31 Abnormal electrocardiogram [ECG] [EKG]; K21.9 Gastro-esophageal reflux disease without esophagitis; F17.200 Nicotine dependence, unspecified, uncomplicated; Z86.79 Personal history of other diseases of the circulatory system; K44.9 Diaphragmatic hernia without obstruction or gangrene; E11.9 Type 2 diabetes mellitus without complications; Z79.4 Long term (current) use of insulin; Z79.899 Other long term (current) drug therapy

== ENCOUNTER 2021-10-08 21:56 | Inpatient (IN) | payer OTHER ==
[~2021-10-08] VITALS: Ht 162.6 cm; Wt 93.5 kg
[~2021-10-08 21:56] MED LIST changes: +TRUL10IN INJ
[2021-10-08 22:24] LABS: BASO % 0.3 % (0.0-1.0); EOS % 0.1 % (0.0-3.0); HEMATOCRIT 48.1 % (42.0-52.0); HEMOGLOBIN 15.6 g/dl (13.5-17.5); LYMPH # 1.2 10^3/uL (1.5-5.0); LYMPH % 7.8 % (24.0-44.0); MEAN CORPUSCULAR HEMOGLOBIN 28.7 pg (27.0-33.0); MEAN CORPUSCULAR HGB CONC 32.4 g/dl (32.0-36.5); MEAN CORPUSCULAR VOLUME 88.6 fl (80.0-96.0); MONO # 1.1 10^3/uL (0.0-0.8); MONO % 7.7 % (2.0-8.0); NEUTROPHILS # 12.3 10^3/uL (1.5-8.5); NEUTROPHILS % 83.4 % (36.0-66.0); PLATELET COUNT, AUTOMATED 112 10^3/uL (150-450); RED BLOOD COUNT 5.43 10^6/uL (4.30-6.10); WHITE BLOOD COUNT 14.8 10^3/uL (4.0-10.0)
[2021-10-08] MEDS: METOPROLOL 5 MG/5 ML VIAL IV SCH ×2 (22:38→22:46)
[2021-10-08 22:41] LABS: INR 1.61; PROTHROMBIN TIME 19.6 SECONDS (12.7-14.5)
[2021-10-08 22:42] LABS: PARTIAL THROMBOPLASTIN TIME 30.6 SECONDS (25.9-37.0)
[2021-10-08 22:54] LABS: CK-MB VALUE MASS 9.1 NG/ML (<3.6); MB/CK RELATIVE INDEX 1.3 (< OR =4)
[2021-10-08] MEDS ORDERED: METOPROLOL TARTRATE 100MG TAB PO ONE (23:00)
[2021-10-08] MEDS ORDERED: DIGOXIN INJ 0.5 MG/2 ML AMP (J1160) IV ONE (23:00)
[2021-10-08 23:10] LABS: CALCIUM LEVEL 7.9 MG/DL (8.5-10.1); CREATININE FOR GFR 2.83 MG/DL (0.70-1.30); DIGOXIN LEVEL 0.1 NG/ML (0.5-2.0); FREE T4 1.29 NG/DL (0.76-1.46); GLOMERULAR FILTRATION RATE 24.5 (>56); POTASSIUM SERUM 4.3 MEQ/L (3.5-5.1); THYROID STIMULATING HORMONE 4.36 uIU/ML (0.358-3.740)
[2021-10-08] MEDS ORDERED: NS 1,000 ML IV ONE (23:15)
[2021-10-08 23:32] LABS: RSV AMPLIFICATION NEGATIVE (NEGATIVE)
[2021-10-09 00:04] LABS: CK-MB VALUE MASS 9.5 NG/ML (<3.6); MB/CK RELATIVE INDEX 1.42 (< OR =4)
[2021-10-09] MEDS: METOPROLOL 5 MG/5 ML VIAL IV SCH ×4 (00:23→16:23)
[2021-10-09] MEDS ORDERED: ASPIRIN 81 MG CHEW TABLET PO ONE (00:25)
[2021-10-09] MEDS ORDERED: DIGOXIN 0.25 MG TAB PO ONE (01:00)
[2021-10-09] MEDS ORDERED: VITA200048 PO (02:34)
[2021-10-09] MEDS ORDERED: TRIA75TA10 PO (02:34)
[2021-10-09] MEDS ORDERED: VITA200031 PO (02:35)
[2021-10-09] MEDS ORDERED: MED REC COMMENT (02:35)
[2021-10-09] MEDS ORDERED: HOME MED LIST COMPLETE! XX SCH (02:40)
[2021-10-09] MEDS ORDERED: AMIODARONE 200 MG TAB (PACERONE) PO ONE (03:00)
[2021-10-09] MEDS ORDERED: ALBUTEROL 90 MCG/ACT 8GM HFA INHALER INH PRN (03:35)
[2021-10-09] MEDS ORDERED: GLUCOSE 4GM CHEW TABLET PO PRN (03:35)
[2021-10-09] MEDS ORDERED: DEXTROSE 50% 50 ML SYRINGE IV PRN (03:35)
[2021-10-09] MEDS ORDERED: GLUCAGON INJ 1MG VIAL SC PRN (03:35)
[2021-10-09] MEDS ORDERED: MOM 30ML SUSPENSION UDC PO PRN (03:35)
[2021-10-09] MEDS ORDERED: ACETAMINOPHEN TAB 650MG DOSE (2X325MG) PO PRN (03:35)
[2021-10-09] MEDS: cefTRIAXone SOD 1 GM in D5W MINI-BAG PLUS 50 ML IV SCH (05:50)
[2021-10-09 06:09] LABS: APPEARANCE, URINE HAZY (CLEAR); BACTERIA, URINE AUTO NEGATIVE (NEGATIVE); BILIRUBIN, URINE AUTO NEGATIVE (NEGATIVE); BLOOD, URINE BLOOD 3+ (NEGATIVE); COLOR, URINE YELLOW (YELLOW); GLUCOSE, URINE (UA) AUTO 3+ mg/dL (NEGATIVE); KETONE, URINE AUTO TRACE mg/dL (NEGATIVE); LEUKOCYTE ESTERASE, URINE AUTO NEGATIVE (NEGATIVE); MUCUS, URINE SMALL (NEGATIVE); NITRITE, URINE AUTO NEGATIVE (NEGATIVE); PROTEIN, URINE AUTO 2+ mg/dL (NEGATIVE); RBC, URINE AUTO 0 /HPF (0-3); SPECIFIC GRAVITY URINE AUTO 1.014 (1.002-1.035); SQUAMOUS EPITHELIAL CELL UR AU 0 /HPF (0-6); WBC, URINE AUTO 4 /HPF (0-3)
[2021-10-09 06:17] LABS: BASO % 0.1 % (0.0-1.0); EOS % 0.1 % (0.0-3.0); HEMATOCRIT 44.8 % (42.0-52.0); HEMOGLOBIN 14.3 g/dl (13.5-17.5); LYMPH % 7.3 % (24.0-44.0); MEAN CORPUSCULAR HEMOGLOBIN 27.9 pg (27.0-33.0); MEAN CORPUSCULAR HGB CONC 31.9 g/dl (32.0-36.5); MEAN CORPUSCULAR VOLUME 87.3 fl (80.0-96.0); MONO # 1.2 10^3/uL (0.0-0.8); MONO % 8.7 % (2.0-8.0); NEUTROPHILS # 11.2 10^3/uL (1.5-8.5); NEUTROPHILS % 82.8 % (36.0-66.0); RED BLOOD COUNT 5.13 10^6/uL (4.30-6.10); WHITE BLOOD COUNT 13.5 10^3/uL (4.0-10.0)
[2021-10-09 06:47] LABS: CALCIUM LEVEL 7.9 MG/DL (8.5-10.1); CREATININE FOR GFR 2.61 MG/DL (0.70-1.30); GLOMERULAR FILTRATION RATE 26.9 (>56); POTASSIUM SERUM 4.5 MEQ/L (3.5-5.1)
[2021-10-09 06:53] LABS: PLATELET COUNT, AUTOMATED 85 10^3/uL (150-450)
[2021-10-09 08:00] VITALS: BP 123/91
[2021-10-09] MEDS: INSULIN LISPRO (NovoLOG) PER UNIT SC SCH ×4 (08:34→20:54)
[2021-10-09] MEDS: DIGOXIN 0.25 MG TAB PO SCH ×2 (08:34→10:28)
[2021-10-09] MEDS: APIXABAN 5 MG TAB (ELIQUIS) PO SCH ×3 (08:34→20:52)
[2021-10-09] MEDS: AMIODARONE 200 MG TAB (PACERONE) PO SCH ×5 (08:34→20:51)
[2021-10-09] MEDS: METOPROLOL TART 50 MG TAB PO SCH ×3 (08:35→21:00)
[2021-10-09] MEDS ORDERED: MAXZIDE 75/50 TABLET PO SCH (09:00)
[2021-10-09] MEDS ORDERED: FUROSEMIDE 40MG/4ML VIAL (J1940) IV SCH (09:00)
[2021-10-09] MEDS: PANTOPRAZOLE 40MG TAB (PROTONIX) PO SCH ×3 (09:44→20:52)
[2021-10-09] MEDS: VITAMIN D 1,000 INTERNATIONAL UNITS TABLET PO SCH ×2 (09:44→11:43)
[2021-10-09] MEDS: glipiZIDE XL 5 MG TABCR PO SCH ×2 (09:44→10:28)
[2021-10-09] MEDS: LEVEMIR (INSULIN DETEMIR) 1 UNITS/0.01ML SC SCH (09:44)
[2021-10-09 12:00] VITALS: BP 108/74
[2021-10-09 15:47] VITALS: BP 102/77
[2021-10-09] MEDS: FUROSEMIDE 100MG/10ML VIAL (J1940) IV SCH (18:17)
[2021-10-09 20:00] VITALS: BP 96/58
[2021-10-09] MEDS: ATORVASTATIN 20 MG TAB PO SCH (20:51)
[2021-10-09 22:59] VITALS: BP 100/59
[2021-10-10] VITALS (8 sets, daily range): BP systolic 95–125; BP diastolic 58–80
[2021-10-10] MEDS ORDERED: DIGOXIN INJ 0.5 MG/2 ML AMP (J1160) IV ONE (02:00)
[2021-10-10] MEDS: cefTRIAXone SOD 1 GM in D5W MINI-BAG PLUS 50 ML IV SCH (05:01)
[2021-10-10 06:58] LABS: BASO % 0.2 % (0.0-1.0); EOS # 0.1 10^3/uL (0.0-0.5); HEMATOCRIT 43.1 % (42.0-52.0); HEMOGLOBIN 13.9 g/dl (13.5-17.5); LYMPH # 1.3 10^3/uL (1.5-5.0); LYMPH % 10.1 % (24.0-44.0); MEAN CORPUSCULAR HEMOGLOBIN 28.4 pg (27.0-33.0); MEAN CORPUSCULAR HGB CONC 32.3 g/dl (32.0-36.5); MONO # 1.3 10^3/uL (0.0-0.8); NEUTROPHILS # 9.9 10^3/uL (1.5-8.5); NEUTROPHILS % 78.1 % (36.0-66.0); WHITE BLOOD COUNT 12.6 10^3/uL (4.0-10.0)
[2021-10-10 06:59] LABS: PLATELET COUNT, AUTOMATED 86 10^3/uL (150-450)
[2021-10-10 07:25] LABS: C REACTIVE PROTEIN QUANTITATIV 11.8 MG/DL (0.00-0.30); CALCIUM LEVEL 7.9 MG/DL (8.5-10.1); CREATININE FOR GFR 2.21 MG/DL (0.70-1.30); GLOMERULAR FILTRATION RATE 32.6 (>56); POTASSIUM SERUM 3.1 MEQ/L (3.5-5.1)
[2021-10-10] MEDS: INSULIN LISPRO (NovoLOG) PER UNIT SC SCH ×4 (07:30→21:00)
[2021-10-10 07:49] LABS: ERYTHROCYTE SEDIMENTATION RATE 10 mm/hr (0-20)
[2021-10-10] MEDS: FUROSEMIDE 100MG/10ML VIAL (J1940) IV SCH ×3 (08:54→16:00)
[2021-10-10] MEDS: POTASSIUM CHLORIDE 10MEQ SR TABLET PO SCH ×2 (08:55→21:08)
[2021-10-10] MEDS: APIXABAN 5 MG TAB (ELIQUIS) PO SCH ×2 (08:55→21:07)
[2021-10-10] MEDS: PANTOPRAZOLE 40MG TAB (PROTONIX) PO SCH ×2 (08:55→21:08)
[2021-10-10] MEDS: VITAMIN D 1,000 INTERNATIONAL UNITS TABLET PO SCH (08:55)
[2021-10-10] MEDS: glipiZIDE XL 5 MG TABCR PO SCH (08:55)
[2021-10-10] MEDS: AMIODARONE 200 MG TAB (PACERONE) PO SCH ×4 (08:55→21:08)
[2021-10-10] MEDS: METOPROLOL TART 50 MG TAB PO SCH ×2 (08:56→21:08)
[2021-10-10] MEDS: DIGOXIN 0.25 MG TAB PO SCH (08:58)
[2021-10-10] MEDS: LEVEMIR (INSULIN DETEMIR) 1 UNITS/0.01ML SC SCH (09:00)
[2021-10-10] MEDS: ATORVASTATIN 20 MG TAB PO SCH (21:07)
[2021-10-11] VITALS (7 sets, daily range): BP systolic 93–118; BP diastolic 56–88
[2021-10-11] MEDS: FUROSEMIDE 100MG/10ML VIAL (J1940) IV SCH ×3 (00:03→16:23)
[2021-10-11 05:10] LABS: BASO % 0.2 % (0.0-1.0); EOS # 0.1 10^3/uL (0.0-0.5); EOS % 0.4 % (0.0-3.0); HEMOGLOBIN 12.3 g/dl (13.5-17.5); MEAN CORPUSCULAR HEMOGLOBIN 27.2 pg (27.0-33.0); MEAN CORPUSCULAR HGB CONC 31.5 g/dl (32.0-36.5); MEAN CORPUSCULAR VOLUME 86.3 fl (80.0-96.0); MONO # 1.2 10^3/uL (0.0-0.8); MONO % 9.6 % (2.0-8.0); NEUTROPHILS % 81.1 % (36.0-66.0); RED BLOOD COUNT 4.52 10^6/uL (4.30-6.10); WHITE BLOOD COUNT 12.3 10^3/uL (4.0-10.0)
[2021-10-11 05:11] LABS: PLATELET COUNT, AUTOMATED 77 10^3/uL (150-450)
[2021-10-11] MEDS: cefTRIAXone SOD 1 GM in D5W MINI-BAG PLUS 50 ML IV SCH (05:23)
[2021-10-11 05:40] LABS: CALCIUM LEVEL 7.2 MG/DL (8.5-10.1); CREATININE FOR GFR 1.91 MG/DL (0.70-1.30); GLOMERULAR FILTRATION RATE 38.6 (>56); POTASSIUM SERUM 3.5 MEQ/L (3.5-5.1)
[2021-10-11] MEDS: INSULIN LISPRO (NovoLOG) PER UNIT SC SCH ×4 (08:09→21:00)
[2021-10-11] MEDS: POTASSIUM CHLORIDE 10MEQ SR TABLET PO SCH ×2 (09:35→21:22)
[2021-10-11] MEDS: LEVEMIR (INSULIN DETEMIR) 1 UNITS/0.01ML SC SCH (09:35)
[2021-10-11] MEDS: DIGOXIN 0.25 MG TAB PO SCH (09:36)
[2021-10-11] MEDS: glipiZIDE XL 5 MG TABCR PO SCH (09:36)
[2021-10-11] MEDS: VITAMIN D 1,000 INTERNATIONAL UNITS TABLET PO SCH (09:37)
[2021-10-11] MEDS: PANTOPRAZOLE 40MG TAB (PROTONIX) PO SCH ×2 (09:38→21:20)
[2021-10-11] MEDS: METOPROLOL TARTRATE 100MG TAB PO SCH ×2 (09:38→21:21)
[2021-10-11] MEDS: AMIODARONE 200 MG TAB (PACERONE) PO SCH ×4 (09:38→21:22)
[2021-10-11] MEDS: APIXABAN 5 MG TAB (ELIQUIS) PO SCH ×2 (09:38→21:20)
[2021-10-11 10:30] LABS: URIC ACID 10.1 MG/DL (3.5-7.2)
[2021-10-11] MEDS: ATORVASTATIN 20 MG TAB PO SCH (21:20)
[2021-10-12] VITALS (7 sets, daily range): BP systolic 98–152; BP diastolic 60–89
[2021-10-12 04:15] LABS: BASO % 0.1 % (0.0-1.0); EOS # 0.1 10^3/uL (0.0-0.5); EOS % 0.5 % (0.0-3.0); HEMATOCRIT 40.6 % (42.0-52.0); HEMOGLOBIN 12.8 g/dl (13.5-17.5); LYMPH # 0.9 10^3/uL (1.5-5.0); LYMPH % 6.5 % (24.0-44.0); MEAN CORPUSCULAR HEMOGLOBIN 27.6 pg (27.0-33.0); MEAN CORPUSCULAR HGB CONC 31.5 g/dl (32.0-36.5); MEAN CORPUSCULAR VOLUME 87.7 fl (80.0-96.0); MONO % 11.5 % (2.0-8.0); NEUTROPHILS # 11.1 10^3/uL (1.5-8.5); NEUTROPHILS % 80.7 % (36.0-66.0); RED BLOOD COUNT 4.63 10^6/uL (4.30-6.10); WHITE BLOOD COUNT 13.8 10^3/uL (4.0-10.0)
[2021-10-12] MEDS: cefTRIAXone SOD 1 GM in D5W MINI-BAG PLUS 50 ML IV SCH (04:32)
[2021-10-12 04:36] LABS: MONO # 1.6 10^3/uL (0.0-0.8); PLATELET COUNT, AUTOMATED 80 10^3/uL (150-450)
[2021-10-12 04:37] LABS: C REACTIVE PROTEIN QUANTITATIV 9.39 MG/DL (0.00-0.30); CALCIUM LEVEL 7.4 MG/DL (8.5-10.1); CREATININE FOR GFR 1.71 MG/DL (0.70-1.30); GLOMERULAR FILTRATION RATE 43.8 (>56); POTASSIUM SERUM 3.2 MEQ/L (3.5-5.1)
[2021-10-12] MEDS: INSULIN LISPRO (NovoLOG) PER UNIT SC SCH ×4 (07:30→20:41)
[2021-10-12] MEDS ORDERED: POTASSIUM CHLORIDE 10MEQ SR TABLET PO SCH (09:00)
[2021-10-12] MEDS: FUROSEMIDE 100MG/10ML VIAL (J1940) IV SCH ×4 (09:22→23:59)
[2021-10-12] MEDS: AMIODARONE 200 MG TAB (PACERONE) PO SCH ×4 (09:23→20:42)
[2021-10-12] MEDS: APIXABAN 5 MG TAB (ELIQUIS) PO SCH ×2 (09:23→20:42)
[2021-10-12] MEDS: METOPROLOL TARTRATE 100MG TAB PO SCH ×2 (09:23→18:06)
[2021-10-12] MEDS: DIGOXIN 0.25 MG TAB PO SCH (09:23)
[2021-10-12] MEDS: VITAMIN D 1,000 INTERNATIONAL UNITS TABLET PO SCH (09:23)
[2021-10-12] MEDS: predniSONE 20 MG TAB PO SCH (09:23)
[2021-10-12] MEDS: PANTOPRAZOLE 40MG TAB (PROTONIX) PO SCH ×2 (09:23→20:42)
[2021-10-12] MEDS: LEVEMIR (INSULIN DETEMIR) 1 UNITS/0.01ML SC SCH (09:24)
[2021-10-12] MEDS ORDERED: POTASSIUM CHLORIDE 10% LIQ 20 MEQ/15 ML UDC PO ONE (12:00)
[2021-10-12] MEDS: glipiZIDE XL 5 MG TABCR PO SCH (12:27)
[2021-10-12] MEDS: ATORVASTATIN 20 MG TAB PO SCH (20:41)
[2021-10-12] MEDS ORDERED: POTASSIUM CHLORIDE 10% LIQ 20 MEQ/15 ML UDC PO SCH (21:00)
[2021-10-13] VITALS (7 sets, daily range): BP systolic 113–157; BP diastolic 57–97
[2021-10-13 03:50] LABS: BASO % 0.2 % (0.0-1.0); EOS # 0.1 10^3/uL (0.0-0.5); EOS % 0.6 % (0.0-3.0); HEMATOCRIT 41.6 % (42.0-52.0); HEMOGLOBIN 13.1 g/dl (13.5-17.5); LYMPH % 7.7 % (24.0-44.0); MEAN CORPUSCULAR HEMOGLOBIN 27.2 pg (27.0-33.0); MEAN CORPUSCULAR HGB CONC 31.5 g/dl (32.0-36.5); MEAN CORPUSCULAR VOLUME 86.5 fl (80.0-96.0); MONO # 1.3 10^3/uL (0.0-0.8); MONO % 10.5 % (2.0-8.0); NEUTROPHILS # 10.2 10^3/uL (1.5-8.5); NEUTROPHILS % 80.4 % (36.0-66.0); RED BLOOD COUNT 4.81 10^6/uL (4.30-6.10); WHITE BLOOD COUNT 12.7 10^3/uL (4.0-10.0)
[2021-10-13 03:52] LABS: PLATELET COUNT, AUTOMATED 88 10^3/uL (150-450)
[2021-10-13 04:13] LABS: CALCIUM LEVEL 7.7 MG/DL (8.5-10.1); CREATININE FOR GFR 1.56 MG/DL (0.70-1.30); GLOMERULAR FILTRATION RATE 48.7 (>56)
[2021-10-13] MEDS: cefTRIAXone SOD 1 GM in D5W MINI-BAG PLUS 50 ML IV SCH (05:11)
[2021-10-13] MEDS: INSULIN LISPRO (NovoLOG) PER UNIT SC SCH ×4 (07:22→21:36)
[2021-10-13] MEDS ORDERED: ELIQ5TAB PO (07:46)
[2021-10-13] MEDS ORDERED: METF10004 PO (07:46)
[2021-10-13] MEDS ORDERED: TRUL10IN INJ (07:46)
[2021-10-13] MEDS ORDERED: ATOR40TA75 PO (07:46)
[2021-10-13] MEDS ORDERED: PANT40TA29 PO (07:46)
[2021-10-13] MEDS ORDERED: LOPR1TAB7 PO (07:46)
[2021-10-13] MEDS ORDERED: GLIP10TA18 PO (07:46)
[2021-10-13] MEDS ORDERED: TORS20TA2 PO (07:46)
[2021-10-13] MEDS ORDERED: TRIA75TA10 PO (07:46)
[2021-10-13] MEDS ORDERED: VENTAER INH (07:55)
[2021-10-13] MEDS ORDERED: DIGO0.253 PO (07:55)
[2021-10-13] MEDS ORDERED: AMIO200T49 PO (07:55)
[2021-10-13] MEDS ORDERED: STEG15TA PO (07:58)
[2021-10-13] MEDS: FUROSEMIDE 100MG/10ML VIAL (J1940) IV SCH ×3 (08:00→23:55)
[2021-10-13] MEDS ORDERED: POTASSIUM CHLORIDE 10% LIQ 20 MEQ/15 ML UDC PO SCH (09:00)
[2021-10-13] MEDS ORDERED: CEFUROXIME 500 MG TAB PO SCH (09:00)
[2021-10-13] MEDS: LEVEMIR (INSULIN DETEMIR) 1 UNITS/0.01ML SC SCH (09:09)
[2021-10-13] MEDS: AMIODARONE 200 MG TAB (PACERONE) PO SCH ×4 (09:09→21:35)
[2021-10-13] MEDS: predniSONE 20 MG TAB PO SCH (09:12)
[2021-10-13] MEDS: glipiZIDE XL 5 MG TABCR PO SCH (09:12)
[2021-10-13] MEDS: METOPROLOL TARTRATE 100MG TAB PO SCH ×2 (09:12→21:35)
[2021-10-13] MEDS: PANTOPRAZOLE 40MG TAB (PROTONIX) PO SCH ×2 (09:12→21:35)
[2021-10-13] MEDS: APIXABAN 5 MG TAB (ELIQUIS) PO SCH ×2 (09:12→21:35)
[2021-10-13] MEDS: DIGOXIN 0.25 MG TAB PO SCH (09:12)
[2021-10-13] MEDS: VITAMIN D 1,000 INTERNATIONAL UNITS TABLET PO SCH (09:12)
[2021-10-13 09:45] LABS: DIGOXIN LEVEL 1.7 NG/ML (0.5-2.0)
[2021-10-13 13:23] LABS: MAGNESIUM LEVEL 1.7 MG/DL (1.8-2.4)
[2021-10-13] MEDS: CEPHALEXIN 500 MG CAP PO SCH ×2 (14:10→21:35)
[2021-10-13] MEDS: KCL 10MEQ/100ML SWI (KRUN) 10 MEQ in IV 1 EA IV SCH ×2 (14:11→15:18)
[2021-10-13] MEDS: POTASSIUM CHLORIDE 10MEQ SR TABLET PO SCH ×2 (16:00→21:35)
[2021-10-13] MEDS: SPIRONOLACTONE 50 MG TAB PO SCH (17:44)
[2021-10-13] MEDS: ATORVASTATIN 20 MG TAB PO SCH (21:35)
[2021-10-14 03:36] VITALS: BP 106/57
[2021-10-14] MEDS: CEPHALEXIN 500 MG CAP PO SCH ×3 (05:16→22:08)
[2021-10-14 05:55] LABS: BASO % 0.1 % (0.0-1.0); EOS % 0.1 % (0.0-3.0); HEMATOCRIT 38.6 % (42.0-52.0); HEMOGLOBIN 12.5 g/dl (13.5-17.5); LYMPH # 1.1 10^3/uL (1.5-5.0); LYMPH % 6.4 % (24.0-44.0); MEAN CORPUSCULAR HEMOGLOBIN 27.9 pg (27.0-33.0); MEAN CORPUSCULAR HGB CONC 32.4 g/dl (32.0-36.5); MEAN CORPUSCULAR VOLUME 86.2 fl (80.0-96.0); MONO # 1.4 10^3/uL (0.0-0.8); MONO % 8.2 % (2.0-8.0); NEUTROPHILS # 14.2 10^3/uL (1.5-8.5); NEUTROPHILS % 84.5 % (36.0-66.0); PLATELET COUNT, AUTOMATED 110 10^3/uL (150-450); RED BLOOD COUNT 4.48 10^6/uL (4.30-6.10); WHITE BLOOD COUNT 16.8 10^3/uL (4.0-10.0)
[2021-10-14 06:22] LABS: CALCIUM LEVEL 7.6 MG/DL (8.5-10.1); CREATININE FOR GFR 1.5 MG/DL (0.70-1.30); POTASSIUM SERUM 3.3 MEQ/L (3.5-5.1)
[2021-10-14 07:39] VITALS: BP 112/57
[2021-10-14] MEDS: PANTOPRAZOLE 40MG TAB (PROTONIX) PO SCH ×2 (08:37→20:40)
[2021-10-14] MEDS: VITAMIN D 1,000 INTERNATIONAL UNITS TABLET PO SCH (08:37)
[2021-10-14] MEDS: FUROSEMIDE 100MG/10ML VIAL (J1940) IV SCH ×2 (08:37→17:40)
[2021-10-14] MEDS: INSULIN LISPRO (NovoLOG) PER UNIT SC SCH ×4 (08:37→20:41)
[2021-10-14] MEDS: APIXABAN 5 MG TAB (ELIQUIS) PO SCH ×2 (08:37→20:40)
[2021-10-14] MEDS: AMIODARONE 200 MG TAB (PACERONE) PO SCH ×4 (09:54→20:40)
[2021-10-14] MEDS: DIGOXIN 0.25 MG TAB PO SCH (09:54)
[2021-10-14] MEDS: SPIRONOLACTONE 50 MG TAB PO SCH ×2 (09:54→18:22)
[2021-10-14] MEDS: predniSONE 20 MG TAB PO SCH (09:54)
[2021-10-14] MEDS: glipiZIDE XL 5 MG TABCR PO SCH (09:55)
[2021-10-14] MEDS: METOPROLOL TARTRATE 100MG TAB PO SCH ×2 (09:55→20:41)
[2021-10-14] MEDS: LEVEMIR (INSULIN DETEMIR) 1 UNITS/0.01ML SC SCH (09:55)
[2021-10-14] MEDS: KCL 10MEQ/100ML SWI (KRUN) 10 MEQ in IV 1 EA IV SCH ×4 (09:55→14:42)
[2021-10-14 13:45] VITALS: BP 122/76
[2021-10-14 18:00] VITALS: BP 110/60
[2021-10-14 20:00] VITALS: BP 133/75
[2021-10-14] MEDS: ATORVASTATIN 20 MG TAB PO SCH (20:40)
[2021-10-15] VITALS: BP 127/65
[2021-10-15] MEDS: FUROSEMIDE 100MG/10ML VIAL (J1940) IV SCH ×3 (00:16→16:00)
[2021-10-15 04:00] VITALS: BP 140/78
[2021-10-15] MEDS: CEPHALEXIN 500 MG CAP PO SCH ×3 (06:25→22:15)
[2021-10-15 07:44] LABS: BASO % 0.2 % (0.0-1.0); EOS # 0.1 10^3/uL (0.0-0.5); EOS % 0.6 % (0.0-3.0); HEMATOCRIT 40.6 % (42.0-52.0); HEMOGLOBIN 12.9 g/dl (13.5-17.5); LYMPH # 1.6 10^3/uL (1.5-5.0); LYMPH % 9.6 % (24.0-44.0); MEAN CORPUSCULAR HEMOGLOBIN 27.6 pg (27.0-33.0); MEAN CORPUSCULAR HGB CONC 31.8 g/dl (32.0-36.5); MEAN CORPUSCULAR VOLUME 86.8 fl (80.0-96.0); MONO # 1.3 10^3/uL (0.0-0.8); MONO % 7.8 % (2.0-8.0); NEUTROPHILS # 13.7 10^3/uL (1.5-8.5); NEUTROPHILS % 81.3 % (36.0-66.0); PLATELET COUNT, AUTOMATED 133 10^3/uL (150-450); RED BLOOD COUNT 4.68 10^6/uL (4.30-6.10); WHITE BLOOD COUNT 16.8 10^3/uL (4.0-10.0)
[2021-10-15 08:00] VITALS: BP 138/66
[2021-10-15] MEDS: INSULIN LISPRO (NovoLOG) PER UNIT SC SCH ×4 (08:06→22:12)
[2021-10-15 08:14] LABS: CREATININE FOR GFR 1.44 MG/DL (0.70-1.30); GLOMERULAR FILTRATION RATE 53.5 (>56); POTASSIUM SERUM 3.2 MEQ/L (3.5-5.1)
[2021-10-15] MEDS: VITAMIN D 1,000 INTERNATIONAL UNITS TABLET PO SCH (08:57)
[2021-10-15] MEDS: predniSONE 20 MG TAB PO SCH (08:57)
[2021-10-15] MEDS: PANTOPRAZOLE 40MG TAB (PROTONIX) PO SCH ×2 (08:57→22:13)
[2021-10-15] MEDS: APIXABAN 5 MG TAB (ELIQUIS) PO SCH ×2 (08:58→22:12)
[2021-10-15] MEDS: METOPROLOL TARTRATE 100MG TAB PO SCH ×2 (08:58→22:15)
[2021-10-15] MEDS: glipiZIDE XL 5 MG TABCR PO SCH (08:58)
[2021-10-15] MEDS: AMIODARONE 200 MG TAB (PACERONE) PO SCH ×4 (08:59→22:16)
[2021-10-15] MEDS: DIGOXIN 0.25 MG TAB PO SCH (08:59)
[2021-10-15] MEDS: SPIRONOLACTONE 50 MG TAB PO SCH ×2 (08:59→16:26)
[2021-10-15] MEDS: POTASSIUM CHLORIDE 10MEQ SR TABLET PO SCH ×3 (09:00→22:13)
[2021-10-15] MEDS: LEVEMIR (INSULIN DETEMIR) 1 UNITS/0.01ML SC SCH (09:00)
[2021-10-15] MEDS: KCL 10MEQ/100ML SWI (KRUN) 10 MEQ in IV 1 EA IV SCH ×4 (09:00→14:28)
[2021-10-15 12:02] VITALS: BP 115/62
[2021-10-15 15:54] VITALS: BP 126/60
[2021-10-15 20:00] VITALS: BP 135/83
[2021-10-15] MEDS: ATORVASTATIN 20 MG TAB PO SCH (22:12)
[2021-10-16] MEDS: FUROSEMIDE 100MG/10ML VIAL (J1940) IV SCH ×2 (00:12→08:29)
[2021-10-16 04:00] VITALS: BP 125/74
[2021-10-16] MEDS: CEPHALEXIN 500 MG CAP PO SCH ×3 (05:54→21:10)
[2021-10-16] MEDS: INSULIN LISPRO (NovoLOG) PER UNIT SC SCH ×4 (07:30→21:02)
[2021-10-16 07:44] LABS: BASO % 0.2 % (0.0-1.0); EOS # 0.1 10^3/uL (0.0-0.5); EOS % 0.6 % (0.0-3.0); HEMATOCRIT 42.1 % (42.0-52.0); HEMOGLOBIN 13.2 g/dl (13.5-17.5); LYMPH # 1.7 10^3/uL (1.5-5.0); LYMPH % 10.8 % (24.0-44.0); MEAN CORPUSCULAR HEMOGLOBIN 27.4 pg (27.0-33.0); MEAN CORPUSCULAR HGB CONC 31.4 g/dl (32.0-36.5); MEAN CORPUSCULAR VOLUME 87.5 fl (80.0-96.0); MONO # 1.1 10^3/uL (0.0-0.8); MONO % 7.1 % (2.0-8.0); NEUTROPHILS % 80.6 % (36.0-66.0); PLATELET COUNT, AUTOMATED 167 10^3/uL (150-450); RED BLOOD COUNT 4.81 10^6/uL (4.30-6.10); WHITE BLOOD COUNT 16.1 10^3/uL (4.0-10.0)
[2021-10-16 07:58] VITALS: BP 120/59
[2021-10-16 08:03] LABS: CALCIUM LEVEL 8.3 MG/DL (8.5-10.1); CREATININE FOR GFR 1.35 MG/DL (0.70-1.30); GLOMERULAR FILTRATION RATE 57.6 (>56); POTASSIUM SERUM 3.4 MEQ/L (3.5-5.1)
[2021-10-16] MEDS: glipiZIDE XL 5 MG TABCR PO SCH (08:29)
[2021-10-16] MEDS: SPIRONOLACTONE 50 MG TAB PO SCH ×2 (08:29→16:41)
[2021-10-16] MEDS: DIGOXIN 0.25 MG TAB PO SCH (08:29)
[2021-10-16] MEDS: POTASSIUM CHLORIDE 10MEQ SR TABLET PO SCH ×3 (08:29→21:03)
[2021-10-16] MEDS: APIXABAN 5 MG TAB (ELIQUIS) PO SCH ×2 (08:29→21:03)
[2021-10-16] MEDS: METOPROLOL TARTRATE 100MG TAB PO SCH ×2 (08:29→21:04)
[2021-10-16] MEDS: predniSONE 20 MG TAB PO SCH (08:29)
[2021-10-16] MEDS: AMIODARONE 200 MG TAB (PACERONE) PO SCH ×4 (08:30→21:03)
[2021-10-16] MEDS: PANTOPRAZOLE 40MG TAB (PROTONIX) PO SCH ×2 (08:30→21:03)
[2021-10-16] MEDS: VITAMIN D 1,000 INTERNATIONAL UNITS TABLET PO SCH (08:30)
[2021-10-16] MEDS: LEVEMIR (INSULIN DETEMIR) 1 UNITS/0.01ML SC SCH (08:30)
[2021-10-16 15:51] VITALS: BP 141/68
[2021-10-16] MEDS: TORSEMIDE 20 MG TAB PO SCH (16:41)
[2021-10-16 20:00] VITALS: BP 125/74
[2021-10-16] MEDS: ATORVASTATIN 20 MG TAB PO SCH (21:03)
[2021-10-17 04:00] VITALS: BP 129/89
[2021-10-17] MEDS: CEPHALEXIN 500 MG CAP PO SCH ×3 (05:42→22:52)
[2021-10-17 06:03] LABS: BASO % 0.1 % (0.0-1.0); EOS # 0.1 10^3/uL (0.0-0.5); EOS % 0.4 % (0.0-3.0); HEMOGLOBIN 13.6 g/dl (13.5-17.5); LYMPH # 1.9 10^3/uL (1.5-5.0); MEAN CORPUSCULAR HEMOGLOBIN 26.9 pg (27.0-33.0); MEAN CORPUSCULAR HGB CONC 30.9 g/dl (32.0-36.5); MEAN CORPUSCULAR VOLUME 87.1 fl (80.0-96.0); MONO # 1.2 10^3/uL (0.0-0.8); MONO % 6.8 % (2.0-8.0); NEUTROPHILS # 13.8 10^3/uL (1.5-8.5); NEUTROPHILS % 81.1 % (36.0-66.0); PLATELET COUNT, AUTOMATED 189 10^3/uL (150-450); RED BLOOD COUNT 5.05 10^6/uL (4.30-6.10)
[2021-10-17 06:20] LABS: CALCIUM LEVEL 8.4 MG/DL (8.5-10.1); CREATININE FOR GFR 1.38 MG/DL (0.70-1.30); GLOMERULAR FILTRATION RATE 56.1 (>56); POTASSIUM SERUM 3.6 MEQ/L (3.5-5.1)
[2021-10-17] MEDS: INSULIN LISPRO (NovoLOG) PER UNIT SC SCH ×3 (07:30→17:56)
[2021-10-17 08:00] VITALS: BP 138/75
[2021-10-17] MEDS: APIXABAN 5 MG TAB (ELIQUIS) PO SCH ×2 (08:57→20:19)
[2021-10-17] MEDS: SPIRONOLACTONE 50 MG TAB PO SCH ×2 (08:57→16:40)
[2021-10-17] MEDS: glipiZIDE XL 5 MG TABCR PO SCH (08:57)
[2021-10-17] MEDS: predniSONE 10 MG TAB PO SCH (08:57)
[2021-10-17] MEDS: TORSEMIDE 20 MG TAB PO SCH ×2 (08:57→16:40)
[2021-10-17] MEDS: DIGOXIN 0.25 MG TAB PO SCH (08:58)
[2021-10-17] MEDS: VITAMIN D 1,000 INTERNATIONAL UNITS TABLET PO SCH (08:59)
[2021-10-17] MEDS: PANTOPRAZOLE 40MG TAB (PROTONIX) PO SCH ×2 (08:59→20:20)
[2021-10-17] MEDS: POTASSIUM CHLORIDE 10MEQ SR TABLET PO SCH ×3 (08:59→20:20)
[2021-10-17] MEDS: AMIODARONE 200 MG TAB (PACERONE) PO SCH ×4 (08:59→20:20)
[2021-10-17] MEDS: METOPROLOL TARTRATE 100MG TAB PO SCH ×2 (08:59→20:21)
[2021-10-17] MEDS: LEVEMIR (INSULIN DETEMIR) 1 UNITS/0.01ML SC SCH (08:59)
[2021-10-17] MEDS ORDERED: ISOVUE-370 76% 100ML VIAL As Ordered ONE (10:42)
[2021-10-17 12:00] VITALS: BP 142/73
[2021-10-17 13:58] VITALS: BP 129/71
[2021-10-17 20:00] VITALS: BP 108/71
[2021-10-17] MEDS: ATORVASTATIN 20 MG TAB PO SCH (20:19)
[2021-10-18] VITALS: BP 114/65
[2021-10-18 04:00] VITALS: BP 124/77
[2021-10-18] MEDS: CEPHALEXIN 500 MG CAP PO SCH ×3 (05:00→22:00)
[2021-10-18 05:43] LABS: BASO % 0.1 % (0.0-1.0); EOS # 0.2 10^3/uL (0.0-0.5); EOS % 1.1 % (0.0-3.0); HEMATOCRIT 43.8 % (42.0-52.0); HEMOGLOBIN 13.8 g/dl (13.5-17.5); LYMPH # 1.7 10^3/uL (1.5-5.0); LYMPH % 10.9 % (24.0-44.0); MEAN CORPUSCULAR HEMOGLOBIN 27.4 pg (27.0-33.0); MEAN CORPUSCULAR HGB CONC 31.5 g/dl (32.0-36.5); MEAN CORPUSCULAR VOLUME 86.9 fl (80.0-96.0); MONO % 6.5 % (2.0-8.0); NEUTROPHILS # 12.5 10^3/uL (1.5-8.5); NEUTROPHILS % 80.8 % (36.0-66.0); PLATELET COUNT, AUTOMATED 205 10^3/uL (150-450); RED BLOOD COUNT 5.04 10^6/uL (4.30-6.10); WHITE BLOOD COUNT 15.5 10^3/uL (4.0-10.0)
[2021-10-18 06:13] LABS: CALCIUM LEVEL 8.8 MG/DL (8.5-10.1); CREATININE FOR GFR 1.36 MG/DL (0.70-1.30); GLOMERULAR FILTRATION RATE 57.1 (>56); POTASSIUM SERUM 4.2 MEQ/L (3.5-5.1)
[2021-10-18 07:33] VITALS: BP 133/72
[2021-10-18] MEDS: VITAMIN D 1,000 INTERNATIONAL UNITS TABLET PO SCH (08:48)
[2021-10-18] MEDS: METOPROLOL TARTRATE 100MG TAB PO SCH ×2 (08:49→20:23)
[2021-10-18] MEDS: predniSONE 10 MG TAB PO SCH (08:50)
[2021-10-18] MEDS: DIGOXIN 0.25 MG TAB PO SCH (08:50)
[2021-10-18] MEDS: APIXABAN 5 MG TAB (ELIQUIS) PO SCH ×2 (08:50→20:23)
[2021-10-18] MEDS: glipiZIDE XL 5 MG TABCR PO SCH (08:50)
[2021-10-18] MEDS: SPIRONOLACTONE 50 MG TAB PO SCH ×2 (08:50→16:11)
[2021-10-18] MEDS: LEVEMIR (INSULIN DETEMIR) 1 UNITS/0.01ML SC SCH (08:51)
[2021-10-18] MEDS: PANTOPRAZOLE 40MG TAB (PROTONIX) PO SCH ×2 (08:51→20:24)
[2021-10-18] MEDS: POTASSIUM CHLORIDE 10MEQ SR TABLET PO SCH ×3 (08:51→20:24)
[2021-10-18] MEDS: AMIODARONE 200 MG TAB (PACERONE) PO SCH ×4 (08:51→20:23)
[2021-10-18] MEDS: TORSEMIDE 20 MG TAB PO SCH ×2 (08:51→16:11)
[2021-10-18] MEDS ORDERED: LEVEMIR (INSULIN DETEMIR) 1 UNITS/0.01ML SC ONE (12:20)
[2021-10-18 15:45] VITALS: BP 148/81
[2021-10-18] MEDS: metFORMIN (GLUCOPHAGE) 1000MG TABLET PO SCH (16:59)
[2021-10-18] MEDS: GLIMEPIRIDE 2 MG TAB PO SCH (16:59)
[2021-10-18] MEDS: ATORVASTATIN 20 MG TAB PO SCH (20:23)
[2021-10-18 20:24] VITALS: BP 120/66
[2021-10-19] MEDS: CEPHALEXIN 500 MG CAP PO SCH (05:39)
[2021-10-19 05:52] LABS: BASO % 0.2 % (0.0-1.0); EOS # 0.1 10^3/uL (0.0-0.5); EOS % 0.6 % (0.0-3.0); HEMATOCRIT 45.6 % (42.0-52.0); HEMOGLOBIN 14.2 g/dl (13.5-17.5); LYMPH # 1.7 10^3/uL (1.5-5.0); MEAN CORPUSCULAR HEMOGLOBIN 26.7 pg (27.0-33.0); MEAN CORPUSCULAR HGB CONC 31.1 g/dl (32.0-36.5); MEAN CORPUSCULAR VOLUME 85.7 fl (80.0-96.0); MONO # 1.1 10^3/uL (0.0-0.8); MONO % 6.8 % (2.0-8.0); NEUTROPHILS # 13.6 10^3/uL (1.5-8.5); NEUTROPHILS % 81.8 % (36.0-66.0); PLATELET COUNT, AUTOMATED 223 10^3/uL (150-450); RED BLOOD COUNT 5.32 10^6/uL (4.30-6.10); WHITE BLOOD COUNT 16.6 10^3/uL (4.0-10.0)
[2021-10-19 06:00] VITALS: BP 119/67
[2021-10-19 06:18] LABS: CALCIUM LEVEL 8.9 MG/DL (8.5-10.1); CREATININE FOR GFR 1.41 MG/DL (0.70-1.30); GLOMERULAR FILTRATION RATE 54.8 (>56); POTASSIUM SERUM 4.5 MEQ/L (3.5-5.1); URIC ACID 2.8 MG/DL (3.5-7.2)
[2021-10-19] MEDS: VITAMIN D 1,000 INTERNATIONAL UNITS TABLET PO SCH (08:17)
[2021-10-19] MEDS: POTASSIUM CHLORIDE 10MEQ SR TABLET PO SCH (08:17)
[2021-10-19 08:18] VITALS: BP 119/67
[2021-10-19] MEDS: GLIMEPIRIDE 2 MG TAB PO SCH (08:18)
[2021-10-19] MEDS: SPIRONOLACTONE 50 MG TAB PO SCH (08:18)
[2021-10-19] MEDS: metFORMIN (GLUCOPHAGE) 1000MG TABLET PO SCH (08:18)
[2021-10-19] MEDS: AMIODARONE 200 MG TAB (PACERONE) PO SCH ×2 (08:18→13:12)
[2021-10-19] MEDS: APIXABAN 5 MG TAB (ELIQUIS) PO SCH (08:18)
[2021-10-19] MEDS: METOPROLOL TARTRATE 100MG TAB PO SCH (08:18)
[2021-10-19] MEDS: PANTOPRAZOLE 40MG TAB (PROTONIX) PO SCH (08:19)
[2021-10-19] MEDS: TORSEMIDE 20 MG TAB PO SCH (08:19)
[2021-10-19] MEDS: DIGOXIN 0.25 MG TAB PO SCH (08:19)
[2021-10-19] MEDS ORDERED: ALDA50TA2 PO (08:40)
[2021-10-19] MEDS ORDERED: AMIO200T49 PO (08:40)
[2021-10-19] MEDS ORDERED: GLIM4TAB5 PO (08:40)
[2021-10-19] MEDS ORDERED: LEVEMIR (INSULIN DETEMIR) 1 UNITS/0.01ML SC SCH ×2 (09:00)
[2021-10-19] MEDS ORDERED: METO25TA PO (10:48)
== END 2021-10-19 17:07 | disposition home health service (06) | DRG 720 ==
LOC: M ED 21:56 → M ED INP 10-09 02:13 → ENRESERV 10-09 03:57 → M PCU 10-09 05:25 → M MSPAV 10-18 15:43
PROVIDERS: ADMIT Family Medicine; ATTEND Internal Medicine Nephrology
DX: A41.9 Sepsis, unspecified organism (principal); I50.21 Acute systolic (congestive) heart failure; N17.9 Acute kidney failure, unspecified; I27.20 Pulmonary hypertension, unspecified; E11.65 Type 2 diabetes mellitus with hyperglycemia; E87.1 Hypo-osmolality and hyponatremia; I48.92 Unspecified atrial flutter; I48.91 Unspecified atrial fibrillation; N28.1 Cyst of kidney, acquired; L03.116 Cellulitis of left lower limb; I34.0 Nonrheumatic mitral (valve) insufficiency; M10.9 Gout, unspecified; E87.6 Hypokalemia; E66.9 Obesity, unspecified; G47.33 Obstructive sleep apnea (adult) (pediatric); Z91.19 Patient's noncompliance with other medical treatment and regimen; K21.9 Gastro-esophageal reflux disease without esophagitis; M19.90 Unspecified osteoarthritis, unspecified site; E55.9 Vitamin D deficiency, unspecified; K44.9 Diaphragmatic hernia without obstruction or gangrene; K22.70 Barrett's esophagus without dysplasia; H40.9 Unspecified glaucoma; Z79.899 Other long term (current) drug therapy; Z91.14 Patient's other noncompliance with medication regimen; Z87.891 Personal history of nicotine dependence; I87.2 Venous insufficiency (chronic) (peripheral)

== ENCOUNTER → 2021-11-30 | Outpatient (REF) | payer OTHER ==
[~2021-11-30] MED LIST changes: +ALDA50TA2 PO; +GLIM4TAB5 PO; +MED REC COMMENT; +METO25TA PO; +TRIA75TA10 PO; +VITA200031 PO; +VITA200048 PO
[2021-11-30 16:38] LABS: HEMATOCRIT 41.2 % (42.0-52.0); MEAN CORPUSCULAR HEMOGLOBIN 28.3 pg (27.0-33.0); MEAN CORPUSCULAR HGB CONC 31.6 g/dl (32.0-36.5); MEAN CORPUSCULAR VOLUME 89.6 fl (80.0-96.0); PLATELET COUNT, AUTOMATED 214 10^3/uL (150-450); WHITE BLOOD COUNT 8.9 10^3/uL (4.0-10.0)
[2021-11-30 17:23] LABS: CALCIUM LEVEL 8.9 MG/DL (8.5-10.1); CREATININE FOR GFR 1.42 MG/DL (0.70-1.30); GLOMERULAR FILTRATION RATE 54.3 (>56); POTASSIUM SERUM 4.2 MEQ/L (3.5-5.1)
== END ==
LOC: M SHH 16:23
PROVIDERS: ATTEND Nurse Practitioner Family
DX: I48.0 Paroxysmal atrial fibrillation (principal)

== ENCOUNTER → 2022-07-10 | Outpatient (REF) | payer OTHER ==
[2022-07-10 17:48] LABS: BASO # 0.1 10^3/uL (0.0-0.2); BASO % 0.6 % (0.0-1.0); EOS # 0.2 10^3/uL (0.0-0.5); EOS % 2.1 % (0.0-3.0); HEMOGLOBIN 15.9 g/dl (13.5-17.5); LYMPH # 1.5 10^3/uL (1.5-5.0); LYMPH % 18.8 % (24.0-44.0); MEAN CORPUSCULAR HEMOGLOBIN 30.7 pg (27.0-33.0); MEAN CORPUSCULAR HGB CONC 32.4 g/dl (32.0-36.5); MEAN CORPUSCULAR VOLUME 94.6 fl (80.0-96.0); MONO # 0.7 10^3/uL (0.0-0.8); NEUTROPHILS # 5.5 10^3/uL (1.5-8.5); NEUTROPHILS % 69.2 % (36.0-66.0); PLATELET COUNT, AUTOMATED 186 10^3/uL (150-450); RED BLOOD COUNT 5.18 10^6/uL (4.30-6.10)
[2022-07-10 19:35] LABS: HEMOGLOBIN A1c 7.3 % (4.0-6.0)
[2022-07-10 19:48] LABS: THYROID STIMULATING HORMONE 1.005 uIU/ML (0.55-4.78)
[2022-07-10 19:50] LABS: TOTAL 25(OH) VITAMIN D 32.7 NG/ML (20.0-100.0)
[2022-07-10 19:58] LABS: ALBUMIN 3.8 G/DL (3.2-5.2); ALKALINE PHOSPHATASE 72 U/L (46-116); ALT/SGPT 33 U/L (7.0-40); AST/SGOT 21 U/L (<34); BILIRUBIN,TOTAL 0.6 MG/DL (0.3-1.2); BLOOD UREA NITROGEN 13 MG/DL (9-23); CALCIUM LEVEL 9.3 MG/DL (8.3-10.6); CARBON DIOXIDE LEVEL 28 MMOL/L (20-31); CHLORIDE LEVEL 106 MMOL/L (98-107); CHOLESTEROL LEVEL 155 MG/DL (<200); CHOLESTEROL RISK RATIO 4.64 (<5); CREATININE FOR GFR 1.04 MG/DL (0.70-1.30); GLOMERULAR FILTRATION RATE > 60.0 (>49); GLUCOSE, FASTING 101 MG/DL (74-106); HDL CHOLESTEROL 33.4 MG/DL (>40); LDL CHOLESTEROL 96.4 MG/DL (<100); NON-HDL-C 121.6 MG/DL; POTASSIUM SERUM 3.7 MMOL/L (3.5-5.1); SODIUM LEVEL 142 MMOL/L (136-145); TRIGLYCERIDES LEVEL 126 MG/DL (<150)
== END ==
LOC: M LAB REF 16:26
PROVIDERS: ATTEND Nurse Practitioner Family
DX: Z13.228 Encounter for screening for other metabolic disorders (principal)

== ENCOUNTER 2024-05-07 04:02 | Inpatient (IN) | payer MEDICARE ==
[2024-05-07] VITALS (10 sets, daily range): BP systolic 113–202; BP diastolic 55–97; TEMP 98.4–98.6; O2SAT 84–99
[~2024-05-07] VITALS: Ht 162.6 cm; Wt 87.1 kg
[~2024-05-07 04:02] MED LIST changes: +BUDE180A2 INH; -BUDE180INH INH; +GLIP5TAB17 PO; -GLIP5TAB8 PO
[2024-05-07 04:33] LABS: BASO % 0.3 % (0.0-1.0); EOS # 0.1 10^3/uL (0.0-0.5); EOS % 0.5 % (0.0-3.0); HEMOGLOBIN 14.3 g/dl (13.5-17.5); LYMPH # 0.9 10^3/uL (1.5-5.0); LYMPH % 5.5 % (24.0-44.0); MEAN CORPUSCULAR HEMOGLOBIN 29.9 pg (27.0-33.0); MEAN CORPUSCULAR HGB CONC 31.1 g/dl (32.0-36.5); MEAN CORPUSCULAR VOLUME 96.2 fl (80.0-96.0); MONO # 1.4 10^3/uL (0.0-0.8); NEUTROPHILS # 12.8 10^3/uL (1.5-8.5); NEUTROPHILS % 83.6 % (36.0-66.0); PLATELET COUNT, AUTOMATED 189 10^3/uL (150-450); RED BLOOD COUNT 4.78 10^6/uL (4.30-6.10); WHITE BLOOD COUNT 15.4 10^3/uL (4.0-10.0)
[2024-05-07 04:54] LABS: INR 1.28; PROTHROMBIN TIME 16.3 SECONDS (12.5-14.5)
[2024-05-07 04:55] LABS: VENOUS BASE EXCESS -13.7 (-2.0-2.0); VENOUS HCO3 14.1 MMOL/L (23.0-27.0); VENOUS O2 SATURATION 27.3 % (60.0-80.0); VENOUS PARTIAL PRESSURE CO2 39.2 mmHg (38.0-50.0); VENOUS PARTIAL PRESSURE O2 24.2 mmHg (30.0-50.0); VENOUS PH 7.174 UNITS (7.330-7.430); VENOUS STANDARD HCO3 12.8 MMOL/L; VENOUS TOTAL CO2 15.3 MMOL/L (24.0-28.0)
[2024-05-07] MEDS: NS (Normal Saline) 0.9% 1,000 ML IV ONE ×3 (05:03→10:24)
[2024-05-07 05:09] LABS: ACETONE/KETONE 1.91 MMOL/L (0.02-0.27)
[2024-05-07 05:18] LABS: HEMOGLOBIN A1c 13.8 % (4.0-6.0)
[2024-05-07 05:19] LABS: ALBUMIN 2.8 G/DL (3.2-5.2); BILIRUBIN,DIRECT 0.8 MG/DL (<0.4); BILIRUBIN,TOTAL 1.5 MG/DL (0.3-1.2); CALCIUM LEVEL 8.7 MG/DL (8.3-10.6); CK-MB VALUE MASS 3.2 NG/ML (<3.6); CREATININE FOR GFR 2.07 MG/DL (0.70-1.30); FREE T4 1.18 NG/DL (0.89-1.76); GLOMERULAR FILTRATION RATE 34.8 (>49); MAGNESIUM LEVEL 3.2 MG/DL (1.8-2.4); MB/CK RELATIVE INDEX 2.96 (< OR =4); POTASSIUM SERUM 5.7 MMOL/L (3.5-5.1); THYROID STIMULATING HORMONE 8.296 uIU/ML (0.55-4.78); TOTAL PROTEIN 7.4 G/DL (5.7-8.2)
[2024-05-07] MEDS: PIPERACILLIN/TAZOBACTAM SOD 4.5 GM in DEXTROSE 5% (D5W) ADV/MINI-BAG 50 ML IV ONE (05:27)
[2024-05-07 06:19] LABS: KETONE, URINE AUTO RFX TRACE mg/dL (NEGATIVE); LEUKOCYTE ESTERASE UR AUTO RFX NEGATIVE (NEGATIVE); MUCUS, URINE RFX SMALL (NEGATIVE); NITRITE, URINE AUTO RFX NEGATIVE (NEGATIVE); RBC, URINE AUTO RFX 4 /HPF (0-3); SQUAM EPITHELIAL CELL UR AURFX 0 /HPF (0-6); WBC, URINE AUTO RFX 6 /HPF (0-3)
[2024-05-07] MEDS: HumuLIN R (REGULAR) INSULIN (NovoLIN R) **100U/ML** PER UNIT IV ONE (06:29)
[2024-05-07 06:36] LABS: CK-MB VALUE MASS 4.4 NG/ML (<3.6)
[2024-05-07 06:38] LABS: MB/CK RELATIVE INDEX 4.11 (< OR =4)
[2024-05-07] MEDS ORDERED: HOME MED LIST COMPLETE! XX SCH (06:50)
[2024-05-07] MEDS: [UNRECOGNIZED DRUG - OTHER] IV ONE (06:56)
[2024-05-07] MEDS: NS 0.9% IV ONE (06:56)
[2024-05-07] MEDS: PANTOPRAZOLE 40MG VIAL IV ONE (08:15)
[2024-05-07] MEDS: SUCRALFATE SUSP 1GM/10ML UD PO ONE (08:15)
[2024-05-07] MEDS ORDERED: INSULIN IV RATE CHANGE DOCUMENTATION ML/HR XX SCH ×2 (08:20→17:25)
[2024-05-07] MEDS: SODIUM BICARBONATE 8.4% INJ 50ML SYRINGE IV STA ×3 (08:37)
[2024-05-07] MEDS: INSULIN REGULAR IN 0.9 % NACL 100 UNIT in IV 1 EA IV SCH ×3 (08:47→19:04)
[2024-05-07] MEDS ORDERED: LORazepam 2 MG/ML 1ML VIAL IV PRN (11:00)
[2024-05-07 11:02] LABS: CALCIUM LEVEL 7.1 MG/DL (8.3-10.6); CREATININE FOR GFR 1.78 MG/DL (0.70-1.30); GLOMERULAR FILTRATION RATE 41.4 (>49); MAGNESIUM LEVEL 2.4 MG/DL (1.8-2.4); POTASSIUM SERUM 4.3 MMOL/L (3.5-5.1)
[2024-05-07] MEDS ORDERED: PIPERACILLIN/TAZOBACTAM SOD 3.375 GM in DEXTROSE 5% (D5W) ADV/MINI-BAG 50 ML IV SCH (11:05)
[2024-05-07] MEDS ORDERED: VANCOMYCIN HCL 1,000 MG, VIAL MATE ADAPTER 1 EACH in NS 250 ML IP ONE (11:05)
[2024-05-07] MEDS: MORPHINE 2 MG/ML 1ML VIAL IV ONE (11:12)
[2024-05-07] MEDS: LR 1,000 ML IV ONE (11:49)
[2024-05-07] MEDS ORDERED: LR 1,000 ML IV SCH (11:55)
[2024-05-07 12:02] LABS: PROCALCITONIN 1.35 ng/ml
[2024-05-07] MEDS: PIPERACILLIN/TAZOBACTAM SOD 4.5 GM in DEXTROSE 5% (D5W) ADV/MINI-BAG 50 ML IV SCH (12:46)
[2024-05-07] MEDS: D5W/0.9% SODIUM CHLORIDE 1,000 ML IV SCH (13:52)
[2024-05-07] MEDS: VANCOMYCIN HCL 1,000 MG, VIAL MATE ADAPTER 1 EACH in NS 250 ML IV ONE (13:52)
[2024-05-07 14:16] LABS: VENOUS BASE EXCESS -6.4 (-2.0-2.0); VENOUS HCO3 17.9 MMOL/L (23.0-27.0); VENOUS O2 SATURATION 94.1 % (60.0-80.0); VENOUS PARTIAL PRESSURE CO2 32.1 mmHg (38.0-50.0); VENOUS PARTIAL PRESSURE O2 74.6 mmHg (30.0-50.0); VENOUS PH 7.363 UNITS (7.330-7.430); VENOUS STANDARD HCO3 19.2 MMOL/L; VENOUS TOTAL CO2 18.8 MMOL/L (24.0-28.0)
[2024-05-07 14:21] LABS: HEMATOCRIT 39.7 % (42.0-52.0); HEMOGLOBIN 12.8 g/dl (13.5-17.5); MEAN CORPUSCULAR HEMOGLOBIN 29.7 pg (27.0-33.0); MEAN CORPUSCULAR HGB CONC 32.2 g/dl (32.0-36.5); MEAN CORPUSCULAR VOLUME 92.1 fl (80.0-96.0); PLATELET COUNT, AUTOMATED 171 10^3/uL (150-450); RED BLOOD COUNT 4.31 10^6/uL (4.30-6.10); WHITE BLOOD COUNT 15.6 10^3/uL (4.0-10.0)
[2024-05-07 14:53] LABS: ALBUMIN 2.4 G/DL (3.2-5.2); BILIRUBIN,TOTAL 1.2 MG/DL (0.3-1.2); CALCIUM LEVEL 7.4 MG/DL (8.3-10.6); CREATININE FOR GFR 1.83 MG/DL (0.70-1.30); GLOMERULAR FILTRATION RATE 40.1 (>49); POTASSIUM SERUM 4.2 MMOL/L (3.5-5.1); TOTAL PROTEIN 6.4 G/DL (5.7-8.2)
[2024-05-07] MEDS ORDERED: GLUCOSE 4 GM CHEW PO PRN (17:25)
[2024-05-07] MEDS ORDERED: GLUCAGON INJ 1MG VIAL SC PRN (17:25)
[2024-05-07] MEDS ORDERED: DEXTROSE 50% 50ML SYRINGE IV PRN (17:25)
[2024-05-07] MEDS: MORPHINE 2 MG/ML 1ML VIAL IV PRN (17:50)
[2024-05-07 18:24] LABS: VENOUS BASE EXCESS -6.5 (-2.0-2.0); VENOUS HCO3 19.1 MMOL/L (23.0-27.0); VENOUS PARTIAL PRESSURE CO2 38.3 mmHg (38.0-50.0); VENOUS PH 7.315 UNITS (7.330-7.430); VENOUS STANDARD HCO3 18.9 MMOL/L; VENOUS TOTAL CO2 20.2 MMOL/L (24.0-28.0)
[2024-05-07 18:47] LABS: CALCIUM LEVEL 8.2 MG/DL (8.3-10.6); CREATININE FOR GFR 1.91 MG/DL (0.70-1.30); GLOMERULAR FILTRATION RATE 38.2 (>49); POTASSIUM SERUM 4.1 MMOL/L (3.5-5.1)
[2024-05-07] MEDS: VANCOMYCIN HCL 1,000 MG, VIAL MATE ADAPTER 1 EACH in NS 250 ML IV SCH (20:36)
[2024-05-08] VITALS (54 sets, daily range): BP systolic 60–148; BP diastolic 32–96; TEMP 97–98.6; O2SAT 88–100
[2024-05-08 00:07] LABS: VENOUS BASE EXCESS -6.3 (-2.0-2.0); VENOUS HCO3 19.8 MMOL/L (23.0-27.0); VENOUS O2 SATURATION 89.4 % (60.0-80.0); VENOUS PARTIAL PRESSURE CO2 41.6 mmHg (38.0-50.0); VENOUS PARTIAL PRESSURE O2 63.3 mmHg (30.0-50.0); VENOUS PH 7.296 UNITS (7.330-7.430); VENOUS STANDARD HCO3 19.2 MMOL/L; VENOUS TOTAL CO2 21.1 MMOL/L (24.0-28.0)
[2024-05-08 00:30] LABS: CALCIUM LEVEL 7.7 MG/DL (8.3-10.6); CREATININE FOR GFR 2.06 MG/DL (0.70-1.30); POTASSIUM SERUM 4.1 MMOL/L (3.5-5.1)
[2024-05-08 04:53] LABS: VENOUS BASE EXCESS -6.5 (-2.0-2.0); VENOUS HCO3 21.1 MMOL/L (23.0-27.0); VENOUS O2 SATURATION 81.6 % (60.0-80.0); VENOUS PARTIAL PRESSURE CO2 50.7 mmHg (38.0-50.0); VENOUS PARTIAL PRESSURE O2 55.3 mmHg (30.0-50.0); VENOUS PH 7.238 UNITS (7.330-7.430); VENOUS STANDARD HCO3 18.9 MMOL/L; VENOUS TOTAL CO2 22.7 MMOL/L (24.0-28.0)
[2024-05-08] MEDS: LEVEMIR (INSULIN DETEMIR) 1 UNITS/0.01ML SC ONE ×2 (05:20→09:06)
[2024-05-08 06:34] LABS: VENOUS BASE EXCESS -5.9 (-2.0-2.0); VENOUS HCO3 20.1 MMOL/L (23.0-27.0); VENOUS O2 SATURATION 95.9 % (60.0-80.0); VENOUS PARTIAL PRESSURE CO2 41.6 mmHg (38.0-50.0); VENOUS PARTIAL PRESSURE O2 87.9 mmHg (30.0-50.0); VENOUS PH 7.303 UNITS (7.330-7.430); VENOUS STANDARD HCO3 19.6 MMOL/L; VENOUS TOTAL CO2 21.4 MMOL/L (24.0-28.0)
[2024-05-08 07:03] LABS: ALBUMIN 2.3 G/DL (3.2-5.2); BILIRUBIN,TOTAL 1.1 MG/DL (0.3-1.2); CALCIUM LEVEL 7.6 MG/DL (8.3-10.6); CREATININE FOR GFR 2.23 MG/DL (0.70-1.30); GLOMERULAR FILTRATION RATE 31.9 (>49); POTASSIUM SERUM 4.3 MMOL/L (3.5-5.1); TOTAL PROTEIN 6.2 G/DL (5.7-8.2)
[2024-05-08] MEDS ORDERED: GLUCOSE 4 GM CHEW PO PRN ×2 (08:30→12:35)
[2024-05-08] MEDS ORDERED: DEXTROSE 50% 50ML SYRINGE IV PRN ×2 (08:30→12:35)
[2024-05-08] MEDS ORDERED: GLUCAGON INJ 1MG VIAL SC PRN ×2 (08:30→12:35)
[2024-05-08] MEDS ORDERED: INSULIN REGULAR IN 0.9 % NACL 100 UNIT in IV 1 EA IV SCH (08:45)
[2024-05-08] MEDS ORDERED: INSULIN IV RATE CHANGE DOCUMENTATION ML/HR XX SCH (08:45)
[2024-05-08] MEDS: PANTOPRAZOLE 40MG VIAL IV SCH (09:06)
[2024-05-08] MEDS: D5W/0.45% SODIUM CHLORIDE 1,000 ML IV SCH (09:07)
[2024-05-08] MEDS: ENOXAPARIN 40MG/0.4ML SYRINGE (J1650 PER 10MG) SC SCH (09:07)
[2024-05-08] MEDS: METOPROLOL TART 50 MG TAB PO SCH (10:45)
[2024-05-08] MEDS: PIPERACILLIN/TAZOBACTAM SOD 3.375 GM in DEXTROSE 5% (D5W) ADV/MINI-BAG 50 ML IV SCH (11:43)
[2024-05-08] MEDS: AMIODARONE 200 MG TAB (PACERONE) PO SCH (11:43)
[2024-05-08] MEDS: FUROSEMIDE 40MG/4ML VIAL IV SCH (11:43)
[2024-05-08 11:45] LABS: CALCIUM LEVEL 7.7 MG/DL (8.3-10.6); CREATININE FOR GFR 2.36 MG/DL (0.70-1.30); GLOMERULAR FILTRATION RATE 29.9 (>49); PHOSPHORUS LEVEL 3.6 MG/DL (2.4-5.1); POTASSIUM SERUM 4.4 MMOL/L (3.5-5.1)
[2024-05-08] MEDS ORDERED: INSULIN LISPRO (NovoLOG) PER UNIT SC SCH ×2 (12:00→21:00)
[2024-05-08] MEDS ORDERED: AMIODARONE HCL 150 MG/100 ML PREMIXED BAG (NEXTERONE) As Ordered ONE (13:14)
[2024-05-08] MEDS: AMIODARONE HCL 150 MG in IV 1 EA IV STA (13:22)
[2024-05-08] MEDS: AMIODARONE HCL 150 MG in IV 1 EA IV ONE (13:31)
[2024-05-08] MEDS ORDERED: MAGNESIUM SULFATE 1GM/100ML D5W BAG (10MG/ML) As Ordered ONE (13:35)
[2024-05-08] MEDS: MAG SULF 1GM/100ML (MAG RUN) 1 GM in IV 1 EA IV STA (13:36)
[2024-05-08] MEDS: AMIODARONE HCL 360 MG in IV 1 EA IV SCH ×2 (14:12→20:00)
[2024-05-08 15:47] LABS: CALCIUM LEVEL 7.6 MG/DL (8.3-10.6); CREATININE FOR GFR 2.53 MG/DL (0.70-1.30); GLOMERULAR FILTRATION RATE 27.6 (>49); PHOSPHORUS LEVEL 4.3 MG/DL (2.4-5.1); POTASSIUM SERUM 5.1 MMOL/L (3.5-5.1)
[2024-05-08] MEDS: DOCUSATE SODIUM 100MG CAPSULE PO PRN (15:49)
[2024-05-08] MEDS: BISACODYL 10MG SUPP PR STA (15:49)
[2024-05-08] MEDS: VANCOMYCIN HCL 500 MG in DEXTROSE 5% (D5W) MINI-BAG PLU 100 ML IV SCH (15:50)
[2024-05-08 16:12] LABS: BASO # 0.1 10^3/uL (0.0-0.2); BASO % 0.5 % (0.0-1.0); EOS # 0.2 10^3/uL (0.0-0.5); EOS % 1.4 % (0.0-3.0); HEMATOCRIT 46.9 % (42.0-52.0); HEMOGLOBIN 14.4 g/dl (13.5-17.5); LYMPH # 1.6 10^3/uL (1.5-5.0); LYMPH % 9.3 % (24.0-44.0); MEAN CORPUSCULAR HEMOGLOBIN 30.1 pg (27.0-33.0); MEAN CORPUSCULAR HGB CONC 30.7 g/dl (32.0-36.5); MEAN CORPUSCULAR VOLUME 98.1 fl (80.0-96.0); MONO # 1.3 10^3/uL (0.0-0.8); MONO % 7.5 % (2.0-8.0); NEUTROPHILS # 13.5 10^3/uL (1.5-8.5); NEUTROPHILS % 80.1 % (36.0-66.0); PLATELET COUNT, AUTOMATED 173 10^3/uL (150-450); RED BLOOD COUNT 4.78 10^6/uL (4.30-6.10); WHITE BLOOD COUNT 16.9 10^3/uL (4.0-10.0)
[2024-05-08] MEDS: SPIRONOLACTONE 50 MG TAB PO SCH (17:00)
[2024-05-08] MEDS: metOLazone 5 MG TAB PO ONE (17:52)
[2024-05-08] MEDS: FUROSEMIDE 100MG/10ML VIAL IV ONE (17:53)
[2024-05-08] MEDS: ONDANSETRON 4MG 2ML VIAL IV PRN (17:53)
[2024-05-08] MEDS: NYSTATIN 100,000 UNITS/GM TOPICAL PWD 15GM TOP PRN (17:59)
[2024-05-08] MEDS: INSULIN LISPRO (NovoLOG) PER UNIT SC SCH ×2 (18:02→21:00)
[2024-05-08] MEDS: CHLOROTHIAZIDE 500MG VIAL IV ONE (18:22)
[2024-05-08] MEDS: SENNA 8.6 MG TAB (SENOKOT) PO SCH (20:22)
[2024-05-08] MEDS: APIXABAN 5 MG TAB (ELIQUIS) PO SCH (20:22)
[2024-05-08] MEDS: LEVEMIR (INSULIN DETEMIR) 1 UNITS/0.01ML SC SCH (20:23)
[2024-05-08] MEDS ORDERED: DOBUTamine 500 MG/250 ML BAG IN D5W (2,000 MCG/ML) As Ordered ONE (20:36)
[2024-05-08] MEDS: DOBUTamine HCL 500,000 MCG in IV 1 EA IV SCH (20:46)
[2024-05-08] MEDS: VASOPRESSIN IN 0.9 % NACL 20 UNIT in IV 1 EA IV SCH (20:47)
[2024-05-08] MEDS ORDERED: LEVEMIR (INSULIN DETEMIR) 1 UNITS/0.01ML SC SCH (21:00)
[2024-05-08] MEDS: NOREPINEPHRINE 4MG IN D5 250ML 4 MG in IV 1 EA IV SCH (22:44)
[2024-05-09] VITALS (41 sets, daily range): BP systolic 69–151; BP diastolic 53–104; TEMP 96.7–98; O2SAT 87–100
[2024-05-09] MEDS: DIGOXIN INJ 0.5 MG/2 ML AMP IV STA (01:42)
[2024-05-09] MEDS: METOPROLOL TART 25 MG TABLET PO ONE (04:10)
[2024-05-09 04:41] LABS: BASO % 0.2 % (0.0-1.0); EOS % 0.2 % (0.0-3.0); HEMOGLOBIN 13.1 g/dl (13.5-17.5); LYMPH # 1.3 10^3/uL (1.5-5.0); LYMPH % 7.3 % (24.0-44.0); MEAN CORPUSCULAR HEMOGLOBIN 29.8 pg (27.0-33.0); MEAN CORPUSCULAR VOLUME 93.2 fl (80.0-96.0); MONO # 1.5 10^3/uL (0.0-0.8); MONO % 8.1 % (2.0-8.0); NEUTROPHILS # 15.4 10^3/uL (1.5-8.5); NEUTROPHILS % 83.2 % (36.0-66.0); PLATELET COUNT, AUTOMATED 133 10^3/uL (150-450); WHITE BLOOD COUNT 18.5 10^3/uL (4.0-10.0)
[2024-05-09 05:27] LABS: ALBUMIN 2.1 G/DL (3.2-5.2); CALCIUM LEVEL 7.8 MG/DL (8.3-10.6); CREATININE FOR GFR 3.31 MG/DL (0.70-1.30); GLOMERULAR FILTRATION RATE 20.3 (>49); MAGNESIUM LEVEL 2.6 MG/DL (1.8-2.4); PHOSPHORUS LEVEL 5.4 MG/DL (2.4-5.1); POTASSIUM SERUM 4.5 MMOL/L (3.5-5.1); TOTAL PROTEIN 5.8 G/DL (5.7-8.2)
[2024-05-09] MEDS ORDERED: FUROSEMIDE 40MG/4ML VIAL IV SCH (09:00)
[2024-05-09] MEDS: METOPROLOL SUCC (TopROL XL) 100MG *XL* TAB PO SCH (09:40)
[2024-05-09] MEDS: metOLazone 5 MG TAB PO SCH (09:40)
[2024-05-09] MEDS: FUROSEMIDE 20MG/2ML VIAL IV ONE (09:42)
[2024-05-09] MEDS: FUROSEMIDE injection 100 MG, VIAL 2 BAG 13MM ADAPTER 1 EACH in NS 100 ML IV SCH (09:47)
[2024-05-09] MEDS ORDERED: EPINEPHrine HCL INJ 1 MG in D5W 240 ML IV STA (15:39)
[2024-05-09] MEDS: AMIODARONE HCL 360 MG in IV 1 EA IV SCH ×2 (16:20→22:02)
[2024-05-09 18:01] LABS: CALCIUM LEVEL 7.7 MG/DL (8.3-10.6); CREATININE FOR GFR 3.79 MG/DL (0.70-1.30); GLOMERULAR FILTRATION RATE 17.3 (>49); MAGNESIUM LEVEL 2.5 MG/DL (1.8-2.4); POTASSIUM SERUM 4.4 MMOL/L (3.5-5.1)
[2024-05-09] MEDS: FUROSEMIDE 100MG/10ML VIAL IV ONE (18:32)
[2024-05-10] VITALS (74 sets, daily range): BP systolic 61–160; BP diastolic 43–101; TEMP 95.7–98; O2SAT 91–100
[2024-05-10 05:38] LABS: BASO # 0.1 10^3/uL (0.0-0.2); BASO % 0.3 % (0.0-1.0); EOS # 0.1 10^3/uL (0.0-0.5); EOS % 0.4 % (0.0-3.0); HEMATOCRIT 47.3 % (42.0-52.0); LYMPH # 1.6 10^3/uL (1.5-5.0); MEAN CORPUSCULAR HEMOGLOBIN 29.7 pg (27.0-33.0); MEAN CORPUSCULAR HGB CONC 32.1 g/dl (32.0-36.5); MEAN CORPUSCULAR VOLUME 92.4 fl (80.0-96.0); MONO # 1.4 10^3/uL (0.0-0.8); NEUTROPHILS # 16.5 10^3/uL (1.5-8.5); NEUTROPHILS % 82.8 % (36.0-66.0); PLATELET COUNT, AUTOMATED 212 10^3/uL (150-450); RED BLOOD COUNT 5.12 10^6/uL (4.30-6.10); WHITE BLOOD COUNT 19.9 10^3/uL (4.0-10.0)
[2024-05-10 05:46] LABS: HEMOGLOBIN 15.2 g/dl (13.5-17.5)
[2024-05-10 05:54] LABS: VANCOMYCIN RANDOM 22.6 UG/ML
[2024-05-10 06:06] LABS: ALBUMIN 2.4 G/DL (3.2-5.2); BILIRUBIN,TOTAL 1.8 MG/DL (0.3-1.2); CREATININE FOR GFR 4.34 MG/DL (0.70-1.30); GLOMERULAR FILTRATION RATE 14.8 (>49); POTASSIUM SERUM 5.2 MMOL/L (3.5-5.1); TOTAL PROTEIN 6.7 G/DL (5.7-8.2)
[2024-05-10] MEDS ORDERED: HEPARIN 1000 UNIT/ML *20ML* SYRINGE CRRT CRRT ONE (09:55)
[2024-05-10] MEDS ORDERED: HEPARIN 1,000UNITS/ML 10ML VIAL (FOR RADIOLOGY & DIALYSIS ONLY) CRRT PRN ×2 (09:55)
[2024-05-10] MEDS ORDERED: HEPARIN 1000 UNIT/ML CRRT 20,000 UNITS in IV 1 EA CRRT SCH (09:55)
[2024-05-10] MEDS ORDERED: SODIUM CHLORIDE 0.9% INJ 10 ML SYR CRRT PRN ×2 (09:55)
[2024-05-10] MEDS: PATIROMER SORBITEX CALCIUM 8.4 GM POWDER PACKET (VELTASSA) PO ONE (10:19)
[2024-05-10] MEDS: METOPROLOL SUCC (TopROL XL) 50MG **XL** TAB PO SCH (10:19)
[2024-05-10 10:36] LABS: IONIZED CALCIUM 4.1 MG/DL (4.5-5.3)
[2024-05-10 10:39] LABS: VENOUS BASE EXCESS -14.1 (-2.0-2.0); VENOUS HCO3 13.4 MMOL/L (23.0-27.0); VENOUS O2 SATURATION 82.5 % (60.0-80.0); VENOUS PARTIAL PRESSURE CO2 36.9 mmHg (38.0-50.0); VENOUS PARTIAL PRESSURE O2 59.6 mmHg (30.0-50.0); VENOUS PH 7.179 UNITS (7.330-7.430); VENOUS STANDARD HCO3 13.7 MMOL/L; VENOUS TOTAL CO2 14.6 MMOL/L (24.0-28.0)
[2024-05-10 11:42] LABS: CREATININE FOR GFR 4.61 MG/DL (0.70-1.30); GLOMERULAR FILTRATION RATE 13.8 (>49); MAGNESIUM LEVEL 2.8 MG/DL (1.8-2.4); POTASSIUM SERUM 5.2 MMOL/L (3.5-5.1)
[2024-05-10 11:57] LABS: ACETONE/KETONE 0.25 MMOL/L (0.02-0.27)
[2024-05-10] MEDS: fentaNYL 100 MCG/2 ML INJECTION IV ONE (12:18)
[2024-05-10 13:06] LABS: HEMATOCRIT 42.8 % (42.0-52.0); HEMOGLOBIN 13.6 g/dl (13.5-17.5); MEAN CORPUSCULAR HEMOGLOBIN 29.3 pg (27.0-33.0); MEAN CORPUSCULAR HGB CONC 31.8 g/dl (32.0-36.5); MEAN CORPUSCULAR VOLUME 92.2 fl (80.0-96.0); PLATELET COUNT, AUTOMATED 189 10^3/uL (150-450); RED BLOOD COUNT 4.64 10^6/uL (4.30-6.10); WHITE BLOOD COUNT 21.5 10^3/uL (4.0-10.0)
[2024-05-10 13:24] LABS: INR 4.91; PARTIAL THROMBOPLASTIN TIME 48.2 SECONDS (24.8-34.2); PROTHROMBIN TIME 45.1 SECONDS (12.5-14.5)
[2024-05-10] MEDS: AMIODARONE 200 MG TAB (PACERONE) PO SCH (16:51)
[2024-05-10] MEDS: LOPERAMIDE 2 MG CAPLET PO PRN (20:27)
[2024-05-10 20:37] LABS: HEMATOCRIT 41.7 % (42.0-52.0); HEMOGLOBIN 13.3 g/dl (13.5-17.5); MEAN CORPUSCULAR HEMOGLOBIN 29.4 pg (27.0-33.0); MEAN CORPUSCULAR HGB CONC 31.9 g/dl (32.0-36.5); MEAN CORPUSCULAR VOLUME 92.1 fl (80.0-96.0); PLATELET COUNT, AUTOMATED 209 10^3/uL (150-450); RED BLOOD COUNT 4.53 10^6/uL (4.30-6.10); WHITE BLOOD COUNT 20.1 10^3/uL (4.0-10.0)
[2024-05-10 20:59] LABS: CALCIUM LEVEL 7.7 MG/DL (8.3-10.6); CREATININE FOR GFR 3.38 MG/DL (0.70-1.30); GLOMERULAR FILTRATION RATE 19.8 (>49); MAGNESIUM LEVEL 2.3 MG/DL (1.8-2.4); PHOSPHORUS LEVEL 5.9 MG/DL (2.4-5.1); POTASSIUM SERUM 4.7 MMOL/L (3.5-5.1)
[2024-05-10 21:54] LABS: IONIZED CALCIUM 4.2 MG/DL (4.5-5.3)
[2024-05-10] MEDS: CALCIUM GLUCONATE 1,000 MG, VIAL MATE ADAPTER 1 EACH in NS 100 ML IV SCH (22:09)
[2024-05-11] VITALS (59 sets, daily range): BP systolic 86–123; BP diastolic 49–89; TEMP 96.4–98.8; O2SAT 90–100
[2024-05-11 02:43] LABS: HEMATOCRIT 40.5 % (42.0-52.0); HEMOGLOBIN 13.3 g/dl (13.5-17.5); MEAN CORPUSCULAR HGB CONC 32.8 g/dl (32.0-36.5); MEAN CORPUSCULAR VOLUME 91.4 fl (80.0-96.0); PLATELET COUNT, AUTOMATED 194 10^3/uL (150-450); RED BLOOD COUNT 4.43 10^6/uL (4.30-6.10); WHITE BLOOD COUNT 20.5 10^3/uL (4.0-10.0)
[2024-05-11 02:55] LABS: IONIZED CALCIUM 4.4 MG/DL (4.5-5.3)
[2024-05-11 03:05] LABS: CALCIUM LEVEL 7.9 MG/DL (8.3-10.6); CREATININE FOR GFR 2.93 MG/DL (0.70-1.30); GLOMERULAR FILTRATION RATE 23.3 (>49); MAGNESIUM LEVEL 2.2 MG/DL (1.8-2.4); PHOSPHORUS LEVEL 5.3 MG/DL (2.4-5.1); POTASSIUM SERUM 4.4 MMOL/L (3.5-5.1)
[2024-05-11] MEDS: CALCIUM GLUCONATE 1,000 MG, VIAL MATE ADAPTER 1 EACH in NS 100 ML IV ONE ×3 (03:20→21:36)
[2024-05-11 08:21] LABS: IONIZED CALCIUM 4.2 MG/DL (4.5-5.3)
[2024-05-11 08:25] LABS: HEMATOCRIT 38.9 % (42.0-52.0); HEMOGLOBIN 12.8 g/dl (13.5-17.5); MEAN CORPUSCULAR HEMOGLOBIN 29.8 pg (27.0-33.0); MEAN CORPUSCULAR HGB CONC 32.9 g/dl (32.0-36.5); MEAN CORPUSCULAR VOLUME 90.7 fl (80.0-96.0); PLATELET COUNT, AUTOMATED 178 10^3/uL (150-450); RED BLOOD COUNT 4.29 10^6/uL (4.30-6.10); WHITE BLOOD COUNT 18.6 10^3/uL (4.0-10.0)
[2024-05-11 08:59] LABS: CALCIUM LEVEL 7.9 MG/DL (8.3-10.6); CREATININE FOR GFR 2.51 MG/DL (0.70-1.30); GLOMERULAR FILTRATION RATE 27.9 (>49); MAGNESIUM LEVEL 2.2 MG/DL (1.8-2.4); PHOSPHORUS LEVEL 4.8 MG/DL (2.4-5.1); POTASSIUM SERUM 4.4 MMOL/L (3.5-5.1)
[2024-05-11] MEDS: HEPARIN SOD (PORCINE) 5000UNITS/ML 1ML VIAL/SYRINGE SQ SCH (09:57)
[2024-05-11] MEDS: CALCIUM GLUCONATE 1,000 MG, VIAL MATE ADAPTER 1 EACH in NS 100 ML IV SCH (09:57)
[2024-05-11] MEDS: AMIODARONE HCL 150 MG in IV 1 EA IV ONE (13:20)
[2024-05-11] MEDS: METOPROLOL SUCC *XL* 12.5MG PER 1/2 TAB (TopROL *XL*) PO SCH (14:23)
[2024-05-11 14:55] LABS: IONIZED CALCIUM 4.4 MG/DL (4.5-5.3)
[2024-05-11 15:00] LABS: HEMATOCRIT 39.9 % (42.0-52.0); HEMOGLOBIN 12.9 g/dl (13.5-17.5); MEAN CORPUSCULAR HEMOGLOBIN 29.6 pg (27.0-33.0); MEAN CORPUSCULAR HGB CONC 32.3 g/dl (32.0-36.5); MEAN CORPUSCULAR VOLUME 91.5 fl (80.0-96.0); PLATELET COUNT, AUTOMATED 183 10^3/uL (150-450); RED BLOOD COUNT 4.36 10^6/uL (4.30-6.10); WHITE BLOOD COUNT 18.4 10^3/uL (4.0-10.0)
[2024-05-11 16:29] LABS: ALBUMIN 2.1 G/DL (3.2-5.2); BILIRUBIN,DIRECT 1.1 MG/DL (<0.4); BILIRUBIN,TOTAL 1.6 MG/DL (0.3-1.2); CALCIUM LEVEL 8.2 MG/DL (8.3-10.6); CREATININE FOR GFR 2.15 MG/DL (0.70-1.30); GLOMERULAR FILTRATION RATE 33.3 (>49); MAGNESIUM LEVEL 2.2 MG/DL (1.8-2.4); PHOSPHORUS LEVEL 4.1 MG/DL (2.4-5.1); POTASSIUM SERUM 4.3 MMOL/L (3.5-5.1); TOTAL PROTEIN 6.1 G/DL (5.7-8.2)
[2024-05-11] MEDS: METOPROLOL SUCC *XL* 12.5MG PER 1/2 TAB (TopROL *XL*) PO ONE (20:18)
[2024-05-11 20:19] LABS: IONIZED CALCIUM 4.4 MG/DL (4.5-5.3)
[2024-05-11 20:34] LABS: HEMOGLOBIN 12.9 g/dl (13.5-17.5); MEAN CORPUSCULAR HGB CONC 32.3 g/dl (32.0-36.5); PLATELET COUNT, AUTOMATED 185 10^3/uL (150-450); WHITE BLOOD COUNT 17.3 10^3/uL (4.0-10.0)
[2024-05-11 21:03] LABS: CREATININE FOR GFR 1.96 MG/DL (0.70-1.30); GLOMERULAR FILTRATION RATE 37.1 (>49); MAGNESIUM LEVEL 2.1 MG/DL (1.8-2.4); PHOSPHORUS LEVEL 3.8 MG/DL (2.4-5.1); POTASSIUM SERUM 4.5 MMOL/L (3.5-5.1)
[2024-05-12] VITALS (39 sets, daily range): BP systolic 88–135; BP diastolic 50–93; TEMP 96–98.8; O2SAT 85–100
[2024-05-12 02:22] LABS: IONIZED CALCIUM 4.5 MG/DL (4.5-5.3)
[2024-05-12 02:30] LABS: HEMATOCRIT 39.2 % (42.0-52.0); HEMOGLOBIN 12.5 g/dl (13.5-17.5); MEAN CORPUSCULAR HEMOGLOBIN 29.6 pg (27.0-33.0); MEAN CORPUSCULAR HGB CONC 31.9 g/dl (32.0-36.5); MEAN CORPUSCULAR VOLUME 92.7 fl (80.0-96.0); PLATELET COUNT, AUTOMATED 163 10^3/uL (150-450); RED BLOOD COUNT 4.23 10^6/uL (4.30-6.10); WHITE BLOOD COUNT 16.8 10^3/uL (4.0-10.0)
[2024-05-12 03:08] LABS: CREATININE FOR GFR 1.72 MG/DL (0.70-1.30); GLOMERULAR FILTRATION RATE 43.1 (>49); MAGNESIUM LEVEL 2.2 MG/DL (1.8-2.4); PHOSPHORUS LEVEL 3.9 MG/DL (2.4-5.1); POTASSIUM SERUM 4.5 MMOL/L (3.5-5.1)
[2024-05-12] MEDS: CALCIUM GLUCONATE 1,000 MG, VIAL MATE ADAPTER 1 EACH in NS 100 ML IV ONE ×2 (03:57→21:41)
[2024-05-12 08:05] LABS: IONIZED CALCIUM 4.4 MG/DL (4.5-5.3)
[2024-05-12 08:07] LABS: HEMATOCRIT 39.3 % (42.0-52.0); HEMOGLOBIN 12.6 g/dl (13.5-17.5); MEAN CORPUSCULAR HEMOGLOBIN 29.8 pg (27.0-33.0); MEAN CORPUSCULAR HGB CONC 32.1 g/dl (32.0-36.5); MEAN CORPUSCULAR VOLUME 92.9 fl (80.0-96.0); PLATELET COUNT, AUTOMATED 174 10^3/uL (150-450); RED BLOOD COUNT 4.23 10^6/uL (4.30-6.10); WHITE BLOOD COUNT 16.7 10^3/uL (4.0-10.0)
[2024-05-12 08:42] LABS: ALBUMIN 2.1 G/DL (3.2-5.2); BILIRUBIN,TOTAL 1.5 MG/DL (0.3-1.2); CALCIUM LEVEL 7.9 MG/DL (8.3-10.6); CREATININE FOR GFR 1.63 MG/DL (0.70-1.30); GLOMERULAR FILTRATION RATE 45.9 (>49); MAGNESIUM LEVEL 2.1 MG/DL (1.8-2.4); PHOSPHORUS LEVEL 3.6 MG/DL (2.4-5.1); POTASSIUM SERUM 4.3 MMOL/L (3.5-5.1); TOTAL PROTEIN 6.1 G/DL (5.7-8.2)
[2024-05-12] MEDS: METOPROLOL SUCC *XL* 25MG TAB (TopROL *XL*) PO SCH (08:57)
[2024-05-12] MEDS: CALCIUM GLUCONATE 1,000 MG in NS 100 ML IV ONE (10:12)
[2024-05-12] MEDS: LEVEMIR (INSULIN DETEMIR) 1 UNITS/0.01ML SC SCH (10:13)
[2024-05-12] MEDS: APIXABAN 5 MG TAB (ELIQUIS) PO SCH (11:06)
[2024-05-12 14:12] LABS: IONIZED CALCIUM 4.4 MG/DL (4.5-5.3)
[2024-05-12 14:17] LABS: HEMOGLOBIN 12.5 g/dl (13.5-17.5); MEAN CORPUSCULAR HEMOGLOBIN 29.5 pg (27.0-33.0); MEAN CORPUSCULAR HGB CONC 31.3 g/dl (32.0-36.5); MEAN CORPUSCULAR VOLUME 94.3 fl (80.0-96.0); PLATELET COUNT, AUTOMATED 170 10^3/uL (150-450); RED BLOOD COUNT 4.24 10^6/uL (4.30-6.10)
[2024-05-12 14:52] LABS: CREATININE FOR GFR 1.56 MG/DL (0.70-1.30); GLOMERULAR FILTRATION RATE 48.2 (>49); MAGNESIUM LEVEL 2.1 MG/DL (1.8-2.4); PHOSPHORUS LEVEL 3.3 MG/DL (2.4-5.1); POTASSIUM SERUM 4.3 MMOL/L (3.5-5.1)
[2024-05-12] MEDS: CALCIUM GLUCONATE 1,000 MG in NS 100 ML IV STA (17:44)
[2024-05-12 20:17] LABS: IONIZED CALCIUM 4.5 MG/DL (4.5-5.3)
[2024-05-12 20:22] LABS: HEMATOCRIT 38.7 % (42.0-52.0); HEMOGLOBIN 12.1 g/dl (13.5-17.5); MEAN CORPUSCULAR HEMOGLOBIN 29.3 pg (27.0-33.0); MEAN CORPUSCULAR HGB CONC 31.3 g/dl (32.0-36.5); MEAN CORPUSCULAR VOLUME 93.7 fl (80.0-96.0); PLATELET COUNT, AUTOMATED 156 10^3/uL (150-450); RED BLOOD COUNT 4.13 10^6/uL (4.30-6.10); WHITE BLOOD COUNT 16.8 10^3/uL (4.0-10.0)
[2024-05-12 20:47] LABS: INR 1.67; PARTIAL THROMBOPLASTIN TIME 39.7 SECONDS (24.8-34.2)
[2024-05-12 21:04] LABS: CALCIUM LEVEL 8.2 MG/DL (8.3-10.6); CREATININE FOR GFR 1.43 MG/DL (0.70-1.30); GLOMERULAR FILTRATION RATE 53.3 (>49); MAGNESIUM LEVEL 2.1 MG/DL (1.8-2.4); PHOSPHORUS LEVEL 3.3 MG/DL (2.4-5.1); POTASSIUM SERUM 4.4 MMOL/L (3.5-5.1)
[2024-05-12] MEDS: METOPROLOL TART 12.5 MG PER 1/2 TAB PO ONE (23:51)
[2024-05-13] VITALS (34 sets, daily range): BP systolic 87–158; BP diastolic 52–89; TEMP 96.3–97.5; O2SAT 94–100
[2024-05-13 02:19] LABS: IONIZED CALCIUM 4.6 MG/DL (4.5-5.3)
[2024-05-13 02:36] LABS: HEMATOCRIT 38.8 % (42.0-52.0); HEMOGLOBIN 12.3 g/dl (13.5-17.5); MEAN CORPUSCULAR HEMOGLOBIN 29.9 pg (27.0-33.0); MEAN CORPUSCULAR HGB CONC 31.7 g/dl (32.0-36.5); MEAN CORPUSCULAR VOLUME 94.2 fl (80.0-96.0); PLATELET COUNT, AUTOMATED 146 10^3/uL (150-450); RED BLOOD COUNT 4.12 10^6/uL (4.30-6.10); WHITE BLOOD COUNT 17.1 10^3/uL (4.0-10.0)
[2024-05-13 02:49] LABS: INR 1.64; PARTIAL THROMBOPLASTIN TIME 41.4 SECONDS (24.8-34.2); PROTHROMBIN TIME 19.6 SECONDS (12.5-14.5)
[2024-05-13 02:51] LABS: CALCIUM LEVEL 8.1 MG/DL (8.3-10.6); CREATININE FOR GFR 1.31 MG/DL (0.70-1.30); PHOSPHORUS LEVEL 3.4 MG/DL (2.4-5.1); POTASSIUM SERUM 4.2 MMOL/L (3.5-5.1)
[2024-05-13] MEDS: CALCIUM GLUCONATE 1,000 MG, VIAL MATE ADAPTER 1 EACH in NS 100 ML IV ONE (04:05)
[2024-05-13 05:06] LABS: HEPATITIS B SURFACE ANTIBODY NEGATIVE (POSITIVE)
[2024-05-13 05:20] LABS: HEPATITIS B SURFACE ANTIGEN NEGATIVE (NEGATIVE)
[2024-05-13 05:38] LABS: HEPATITIS B CORE ANTIBODY IGM NEGATIVE (NEGATIVE); HEPATITIS C VIRUS ABY INDEX 0.15 INDEX (<0.8)
[2024-05-13] MEDS: METOPROLOL SUCC (TopROL XL) 50MG **XL** TAB PO STA (07:39)
[2024-05-13 08:05] LABS: HEMATOCRIT 39.6 % (42.0-52.0); HEMOGLOBIN 12.4 g/dl (13.5-17.5); MEAN CORPUSCULAR HEMOGLOBIN 29.6 pg (27.0-33.0); MEAN CORPUSCULAR HGB CONC 31.3 g/dl (32.0-36.5); MEAN CORPUSCULAR VOLUME 94.5 fl (80.0-96.0); PLATELET COUNT, AUTOMATED 160 10^3/uL (150-450); RED BLOOD COUNT 4.19 10^6/uL (4.30-6.10); WHITE BLOOD COUNT 16.8 10^3/uL (4.0-10.0)
[2024-05-13 08:06] LABS: IONIZED CALCIUM 4.5 MG/DL (4.5-5.3)
[2024-05-13 08:20] LABS: INR 1.56; PARTIAL THROMBOPLASTIN TIME 38.8 SECONDS (24.8-34.2); PROTHROMBIN TIME 18.9 SECONDS (12.5-14.5)
[2024-05-13 08:36] LABS: CREATININE FOR GFR 1.39 MG/DL (0.70-1.30); GLOMERULAR FILTRATION RATE 55.1 (>49); POTASSIUM SERUM 4.3 MMOL/L (3.5-5.1)
[2024-05-13 10:58] LABS: PHOSPHORUS LEVEL 3.4 MG/DL (2.4-5.1)
[2024-05-13] MEDS: METOPROLOL SUCC (TopROL XL) 50MG **XL** TAB PO ONE (11:04)
[2024-05-13] MEDS ORDERED: METOPROLOL SUCC (TopROL XL) 50MG **XL** TAB PO ONE (12:00)
[2024-05-13 13:32] LABS: IONIZED CALCIUM 4.3 MG/DL (4.5-5.3)
[2024-05-13 13:38] LABS: HEMATOCRIT 37.9 % (42.0-52.0); HEMOGLOBIN 11.7 g/dl (13.5-17.5); MEAN CORPUSCULAR HEMOGLOBIN 29.4 pg (27.0-33.0); MEAN CORPUSCULAR HGB CONC 30.9 g/dl (32.0-36.5); MEAN CORPUSCULAR VOLUME 95.2 fl (80.0-96.0); PLATELET COUNT, AUTOMATED 149 10^3/uL (150-450); RED BLOOD COUNT 3.98 10^6/uL (4.30-6.10); WHITE BLOOD COUNT 15.5 10^3/uL (4.0-10.0)
[2024-05-13 13:59] LABS: INR 1.83; PARTIAL THROMBOPLASTIN TIME 40.2 SECONDS (24.8-34.2); PROTHROMBIN TIME 21.3 SECONDS (12.5-14.5)
[2024-05-13 14:08] LABS: CALCIUM LEVEL 7.7 MG/DL (8.3-10.6); CREATININE FOR GFR 1.36 MG/DL (0.70-1.30); GLOMERULAR FILTRATION RATE 56.5 (>49); POTASSIUM SERUM 4.1 MMOL/L (3.5-5.1)
[2024-05-13] MEDS ORDERED: ISOVUE-370 76% 100ML VIAL As Ordered ONE (15:27)
[2024-05-14] VITALS (21 sets, daily range): BP systolic 92–116; BP diastolic 53–85; TEMP 98–98.9; O2SAT 93–99
[2024-05-14 05:04] LABS: BASO % 0.3 % (0.0-1.0); EOS # 0.1 10^3/uL (0.0-0.5); EOS % 0.7 % (0.0-3.0); HEMATOCRIT 33.8 % (42.0-52.0); HEMOGLOBIN 10.7 g/dl (13.5-17.5); LYMPH # 1.1 10^3/uL (1.5-5.0); LYMPH % 7.3 % (24.0-44.0); MEAN CORPUSCULAR HEMOGLOBIN 29.3 pg (27.0-33.0); MEAN CORPUSCULAR HGB CONC 31.7 g/dl (32.0-36.5); MEAN CORPUSCULAR VOLUME 92.6 fl (80.0-96.0); MONO # 1.3 10^3/uL (0.0-0.8); MONO % 8.2 % (2.0-8.0); NEUTROPHILS # 12.9 10^3/uL (1.5-8.5); NEUTROPHILS % 82.7 % (36.0-66.0); PLATELET COUNT, AUTOMATED 139 10^3/uL (150-450); RED BLOOD COUNT 3.65 10^6/uL (4.30-6.10); WHITE BLOOD COUNT 15.6 10^3/uL (4.0-10.0)
[2024-05-14] MEDS: METOPROLOL SUCC (TopROL XL) 50MG **XL** TAB PO SCH (05:23)
[2024-05-14 05:42] LABS: ALBUMIN 1.9 G/DL (3.2-5.2); CALCIUM LEVEL 7.6 MG/DL (8.3-10.6); CREATININE FOR GFR 2.53 MG/DL (0.70-1.30); GLOMERULAR FILTRATION RATE 27.6 (>49); MAGNESIUM LEVEL 1.9 MG/DL (1.8-2.4); PHOSPHORUS LEVEL 3.9 MG/DL (2.4-5.1); POTASSIUM SERUM 4.2 MMOL/L (3.5-5.1); TOTAL PROTEIN 5.9 G/DL (5.7-8.2)
[2024-05-14] MEDS ORDERED: HEPARIN 1,000UNITS/ML 10ML VIAL (FOR RADIOLOGY & DIALYSIS ONLY) IV PRN (06:00)
[2024-05-14] MEDS ORDERED: SODIUM CHLORIDE 0.9% 1000 ML IV PRN (06:00)
[2024-05-14] MEDS ORDERED: LIDOCAINE 1% SDV 5ML VIAL SC PRN (06:00)
[2024-05-14] MEDS: METOPROLOL SUCC (TopROL XL) 50MG **XL** TAB PO STA (07:22)
[2024-05-14] MEDS: MIDODRINE 5 MG TAB PO SCH (10:12)
[2024-05-14] MEDS: VASOPRESSIN IN 0.9 % NACL 20 UNIT in IV 1 EA IV SCH (10:55)
[2024-05-14] MEDS: METOPROLOL 5 MG/5 ML VIAL IV STA (12:49)
[2024-05-14] MEDS: HEPARIN 1,000UNITS/ML 10ML VIAL (FOR RADIOLOGY & DIALYSIS ONLY) XX SCH (13:36)
[2024-05-14] MEDS ORDERED: METOPROLOL 5 MG/5 ML VIAL IV ONE (18:00)
[2024-05-14] MEDS: DIGOXIN 0.25 MG TAB PO SCH (19:43)
[2024-05-15] VITALS (32 sets, daily range): BP systolic 76–145; BP diastolic 52–101; TEMP 97.8–99.3; O2SAT 92–99
[2024-05-15 04:39] LABS: BASO % 0.3 % (0.0-1.0); EOS # 0.2 10^3/uL (0.0-0.5); EOS % 1.1 % (0.0-3.0); HEMATOCRIT 36.2 % (42.0-52.0); HEMOGLOBIN 11.2 g/dl (13.5-17.5); LYMPH # 1.2 10^3/uL (1.5-5.0); LYMPH % 8.6 % (24.0-44.0); MEAN CORPUSCULAR HEMOGLOBIN 28.9 pg (27.0-33.0); MEAN CORPUSCULAR HGB CONC 30.9 g/dl (32.0-36.5); MEAN CORPUSCULAR VOLUME 93.3 fl (80.0-96.0); MONO # 1.2 10^3/uL (0.0-0.8); MONO % 8.6 % (2.0-8.0); NEUTROPHILS # 11.1 10^3/uL (1.5-8.5); NEUTROPHILS % 80.7 % (36.0-66.0); PLATELET COUNT, AUTOMATED 144 10^3/uL (150-450); RED BLOOD COUNT 3.88 10^6/uL (4.30-6.10); WHITE BLOOD COUNT 13.8 10^3/uL (4.0-10.0)
[2024-05-15 05:05] LABS: ALBUMIN 1.9 G/DL (3.2-5.2); BILIRUBIN,TOTAL 0.9 MG/DL (0.3-1.2); CALCIUM LEVEL 7.9 MG/DL (8.3-10.6); CREATININE FOR GFR 2.62 MG/DL (0.70-1.30); GLOMERULAR FILTRATION RATE 26.5 (>49); POTASSIUM SERUM 4.3 MMOL/L (3.5-5.1); TOTAL PROTEIN 6.2 G/DL (5.7-8.2)
[2024-05-15] MEDS ORDERED: LIDOCAINE 1% SDV 5ML VIAL SC PRN (06:00)
[2024-05-15] MEDS ORDERED: SODIUM CHLORIDE 0.9% 1000 ML IV PRN (06:00)
[2024-05-15] MEDS ORDERED: HEPARIN 1,000UNITS/ML 10ML VIAL (FOR RADIOLOGY & DIALYSIS ONLY) IV PRN (06:00)
[2024-05-15] MEDS: METOPROLOL SUCC (TopROL XL) 100MG *XL* TAB PO SCH (09:18)
[2024-05-15] MEDS: HEPARIN 1,000UNITS/ML 10ML VIAL (FOR RADIOLOGY & DIALYSIS ONLY) XX SCH (10:31)
[2024-05-15] MEDS ORDERED: MIDODRINE 5 MG TAB PO PRN (18:25)
[2024-05-16] VITALS (33 sets, daily range): BP systolic 102–149; BP diastolic 61–100; TEMP 97–99.8; O2SAT 94–100
[2024-05-16 05:02] LABS: BASO # 0.1 10^3/uL (0.0-0.2); BASO % 0.4 % (0.0-1.0); EOS # 0.2 10^3/uL (0.0-0.5); EOS % 1.1 % (0.0-3.0); HEMATOCRIT 35.5 % (42.0-52.0); HEMOGLOBIN 11.1 g/dl (13.5-17.5); LYMPH # 1.1 10^3/uL (1.5-5.0); MEAN CORPUSCULAR HEMOGLOBIN 29.1 pg (27.0-33.0); MEAN CORPUSCULAR HGB CONC 31.3 g/dl (32.0-36.5); MEAN CORPUSCULAR VOLUME 92.9 fl (80.0-96.0); MONO # 1.1 10^3/uL (0.0-0.8); MONO % 7.6 % (2.0-8.0); NEUTROPHILS # 11.5 10^3/uL (1.5-8.5); NEUTROPHILS % 82.1 % (36.0-66.0); PLATELET COUNT, AUTOMATED 145 10^3/uL (150-450); RED BLOOD COUNT 3.82 10^6/uL (4.30-6.10)
[2024-05-16 05:13] LABS: ALBUMIN 1.9 G/DL (3.2-5.2); BILIRUBIN,TOTAL 0.8 MG/DL (0.3-1.2); CREATININE FOR GFR 2.82 MG/DL (0.70-1.30); GLOMERULAR FILTRATION RATE 24.4 (>49); POTASSIUM SERUM 4.4 MMOL/L (3.5-5.1); TOTAL PROTEIN 6.1 G/DL (5.7-8.2)
[2024-05-16] MEDS ORDERED: HEPARIN 1,000UNITS/ML 10ML VIAL (FOR RADIOLOGY & DIALYSIS ONLY) IV PRN (06:00)
[2024-05-16] MEDS ORDERED: SODIUM CHLORIDE 0.9% 1000 ML IV PRN (06:00)
[2024-05-16] MEDS ORDERED: LIDOCAINE 1% SDV 5ML VIAL SC PRN (06:00)
[2024-05-16] MEDS: MIDODRINE 5 MG TAB PO SCH (08:00)
[2024-05-16] MEDS: HEPARIN 1,000UNITS/ML 10ML VIAL (FOR RADIOLOGY & DIALYSIS ONLY) XX SCH (10:06)
[2024-05-16] MEDS: PANTOPRAZOLE 40MG TAB (PROTONIX) PO SCH (12:28)
[2024-05-16] MEDS: AMIODARONE 200 MG TAB (PACERONE) PO SCH (12:29)
[2024-05-16] MEDS: METOPROLOL SUCC (TopROL XL) 100MG *XL* TAB PO SCH (12:29)
[2024-05-16] MEDS: AMIODARONE HCL 150 MG in IV 1 EA IV ONE (14:26)
[2024-05-16] MEDS: AMIODARONE HCL 360 MG in IV 1 EA IV SCH ×2 (14:40→20:46)
[2024-05-16] MEDS: METOPROLOL SUCC (TopROL XL) 50MG **XL** TAB PO SCH (20:58)
[2024-05-17] VITALS (15 sets, daily range): BP systolic 97–135; BP diastolic 71–90; TEMP 97.6–98.6; O2SAT 96–100
[2024-05-17 04:52] LABS: HEMATOCRIT 38.8 % (42.0-52.0); HEMOGLOBIN 11.9 g/dl (13.5-17.5); MEAN CORPUSCULAR HEMOGLOBIN 28.6 pg (27.0-33.0); MEAN CORPUSCULAR HGB CONC 30.7 g/dl (32.0-36.5); MEAN CORPUSCULAR VOLUME 93.3 fl (80.0-96.0); PLATELET COUNT, AUTOMATED 143 10^3/uL (150-450); RED BLOOD COUNT 4.16 10^6/uL (4.30-6.10); WHITE BLOOD COUNT 12.6 10^3/uL (4.0-10.0)
[2024-05-17 05:25] LABS: ALBUMIN 2.1 G/DL (3.2-5.2); BILIRUBIN,TOTAL 0.7 MG/DL (0.3-1.2); CALCIUM LEVEL 8.3 MG/DL (8.3-10.6); CREATININE FOR GFR 2.83 MG/DL (0.70-1.30); GLOMERULAR FILTRATION RATE 24.3 (>49); POTASSIUM SERUM 4.8 MMOL/L (3.5-5.1); TOTAL PROTEIN 6.7 G/DL (5.7-8.2)
[2024-05-17] MEDS: METOPROLOL SUCC (TopROL XL) 100MG *XL* TAB PO SCH (22:16)
[2024-05-17] MEDS: LEVEMIR (INSULIN DETEMIR) 1 UNITS/0.01ML SC SCH (22:17)
[2024-05-18 04:25] VITALS: BP 114/84; TEMP 97.9; O2SAT 99
[2024-05-18 05:34] LABS: HEMATOCRIT 37.3 % (42.0-52.0); HEMOGLOBIN 11.7 g/dl (13.5-17.5); MEAN CORPUSCULAR HEMOGLOBIN 29.2 pg (27.0-33.0); MEAN CORPUSCULAR HGB CONC 31.4 g/dl (32.0-36.5); PLATELET COUNT, AUTOMATED 139 10^3/uL (150-450); RED BLOOD COUNT 4.01 10^6/uL (4.30-6.10); WHITE BLOOD COUNT 13.9 10^3/uL (4.0-10.0)
[2024-05-18 05:59] LABS: ALBUMIN 2.2 G/DL (3.2-5.2); BILIRUBIN,TOTAL 0.6 MG/DL (0.3-1.2); CALCIUM LEVEL 8.5 MG/DL (8.3-10.6); CREATININE FOR GFR 4.37 MG/DL (0.70-1.30); GLOMERULAR FILTRATION RATE 14.7 (>49); POTASSIUM SERUM 5.3 MMOL/L (3.5-5.1)
[2024-05-18 08:01] VITALS: BP 123/85; TEMP 98; O2SAT 96
[2024-05-18] MEDS: FUROSEMIDE 100MG/10ML VIAL IV ONE ×2 (10:04→18:44)
[2024-05-18 12:10] VITALS: BP 129/83; TEMP 98; O2SAT 97
[2024-05-18 16:05] VITALS: BP 110/70; TEMP 97.8; O2SAT 97
[2024-05-18 18:26] LABS: CALCIUM LEVEL 8.3 MG/DL (8.3-10.6); CREATININE FOR GFR 4.98 MG/DL (0.70-1.30); GLOMERULAR FILTRATION RATE 12.6 (>49); MAGNESIUM LEVEL 1.8 MG/DL (1.8-2.4); POTASSIUM SERUM 5.6 MMOL/L (3.5-5.1)
[2024-05-18] MEDS: PATIROMER SORBITEX CALCIUM 8.4 GM POWDER PACKET (VELTASSA) PO ONE (21:15)
[2024-05-18] MEDS: DEXTROSE 50% 50ML SYRINGE IV STA (21:15)
[2024-05-18] MEDS: HumuLIN R (REGULAR) INSULIN (NovoLIN R) **100U/ML** PER UNIT IV STA (21:15)
[2024-05-19] MEDS: LORazepam 2 MG/ML 1ML VIAL IV ONE (00:29)
[2024-05-19] MEDS ORDERED: HEPARIN 1,000UNITS/ML 10ML VIAL (FOR RADIOLOGY & DIALYSIS ONLY) IV PRN (06:00)
[2024-05-19] MEDS ORDERED: SODIUM CHLORIDE 0.9% 1000 ML IV PRN (06:00)
[2024-05-19] MEDS ORDERED: LIDOCAINE 1% SDV 5ML VIAL SC PRN (06:00)
[2024-05-19 08:07] LABS: HEMATOCRIT 39.4 % (42.0-52.0); HEMOGLOBIN 12.5 g/dl (13.5-17.5); MEAN CORPUSCULAR HEMOGLOBIN 29.8 pg (27.0-33.0); MEAN CORPUSCULAR HGB CONC 31.7 g/dl (32.0-36.5); MEAN CORPUSCULAR VOLUME 93.8 fl (80.0-96.0); PLATELET COUNT, AUTOMATED 149 10^3/uL (150-450); WHITE BLOOD COUNT 13.2 10^3/uL (4.0-10.0)
[2024-05-19 08:15] VITALS: BP 162/68; TEMP 96.8; O2SAT 96
[2024-05-19] MEDS: LEVEMIR (INSULIN DETEMIR) 1 UNITS/0.01ML SC SCH (08:22)
[2024-05-19 08:59] LABS: ALBUMIN 2.5 G/DL (3.2-5.2); BILIRUBIN,TOTAL 0.8 MG/DL (0.3-1.2); CALCIUM LEVEL 8.6 MG/DL (8.3-10.6); CREATININE FOR GFR 5.69 MG/DL (0.70-1.30); GLOMERULAR FILTRATION RATE 10.8 (>49); POTASSIUM SERUM 6.3 MMOL/L (3.5-5.1); TOTAL PROTEIN 7.5 G/DL (5.7-8.2)
[2024-05-19] MEDS: HEPARIN 1,000UNITS/ML 10ML VIAL (FOR RADIOLOGY & DIALYSIS ONLY) XX SCH (09:27)
[2024-05-19] MEDS ORDERED: LIDOCAINE 1% MDV 20ML VIAL As Ordered ONE (13:01)
[2024-05-19] MEDS ORDERED: MIDAZOLAM INJ 2MG/2ML VIAL As Ordered ONE (13:19)
[2024-05-19] MEDS ORDERED: ceFAZolin 2 GM/D5W 50 ML IV BAG As Ordered ONE (13:19)
[2024-05-19] MEDS ORDERED: fentaNYL 100 MCG/2 ML INJECTION As Ordered ONE (13:19)
[2024-05-19] MEDS: ceFAZolin SOD 2 GM in IV 1 EA IV ONE (13:40)
[2024-05-19] MEDS: fentaNYL 100 MCG/2 ML INJECTION IV ONE (13:50)
[2024-05-19] MEDS: MIDAZOLAM INJ 2MG/2ML VIAL IV ONE (13:50)
[2024-05-19 15:11] VITALS: BP 134/74; TEMP 97.3; O2SAT 99
[2024-05-19 16:00] VITALS: BP 120/80; TEMP 97; O2SAT 99
[2024-05-19 19:59] VITALS: BP 94/63; TEMP 98; O2SAT 98
[2024-05-19 23:38] VITALS: BP 98/55; TEMP 97.9; O2SAT 98
[2024-05-20] MEDS: LORazepam 2 MG/ML 1ML VIAL IV STA (02:14)
[2024-05-20 04:25] VITALS: BP 108/85; TEMP 97.3; O2SAT 97
[2024-05-20 07:53] LABS: HEMATOCRIT 37.1 % (42.0-52.0); HEMOGLOBIN 11.6 g/dl (13.5-17.5); MEAN CORPUSCULAR HEMOGLOBIN 28.7 pg (27.0-33.0); MEAN CORPUSCULAR HGB CONC 31.3 g/dl (32.0-36.5); MEAN CORPUSCULAR VOLUME 91.8 fl (80.0-96.0); PLATELET COUNT, AUTOMATED 173 10^3/uL (150-450); RED BLOOD COUNT 4.04 10^6/uL (4.30-6.10); WHITE BLOOD COUNT 13.7 10^3/uL (4.0-10.0)
[2024-05-20 08:00] VITALS: BP 153/85; TEMP 97.9; O2SAT 98
[2024-05-20 08:20] LABS: ALBUMIN 2.4 G/DL (3.2-5.2); BILIRUBIN,TOTAL 0.6 MG/DL (0.3-1.2); CALCIUM LEVEL 8.5 MG/DL (8.3-10.6); CREATININE FOR GFR 4.78 MG/DL (0.70-1.30); GLOMERULAR FILTRATION RATE 13.3 (>49); POTASSIUM SERUM 5.9 MMOL/L (3.5-5.1)
[2024-05-20] MEDS ORDERED: SODIUM CHLORIDE 0.9% 1000 ML IV PRN (09:35)
[2024-05-20] MEDS ORDERED: HEPARIN 1,000UNITS/ML 10ML VIAL (FOR RADIOLOGY & DIALYSIS ONLY) IV PRN (09:35)
[2024-05-20 12:00] VITALS: BP 110/78; TEMP 97.5; O2SAT 98
[2024-05-20] MEDS: HEPARIN 1,000UNITS/ML 10ML VIAL (FOR RADIOLOGY & DIALYSIS ONLY) XX SCH (14:21)
[2024-05-20 17:33] VITALS: BP 117/79; TEMP 98.2; O2SAT 98
[2024-05-20 20:33] VITALS: BP 120/63; TEMP 97.9; O2SAT 99
[2024-05-20] MEDS: LEVEMIR (INSULIN DETEMIR) 1 UNITS/0.01ML SC SCH (21:23)
[2024-05-20] MEDS: RAMELTEON 8 MG TAB (ROZEREM) PO SCH (21:23)
[2024-05-20 23:51] VITALS: BP 104/77; TEMP 98; O2SAT 100
[2024-05-21] VITALS (7 sets, daily range): BP systolic 100–158; BP diastolic 66–92; TEMP 96.8–98.1; O2SAT 92–100
[2024-05-21 05:26] LABS: HEMATOCRIT 34.8 % (42.0-52.0); HEMOGLOBIN 10.7 g/dl (13.5-17.5); MEAN CORPUSCULAR HEMOGLOBIN 28.7 pg (27.0-33.0); MEAN CORPUSCULAR HGB CONC 30.7 g/dl (32.0-36.5); MEAN CORPUSCULAR VOLUME 93.3 fl (80.0-96.0); PLATELET COUNT, AUTOMATED 173 10^3/uL (150-450); RED BLOOD COUNT 3.73 10^6/uL (4.30-6.10); WHITE BLOOD COUNT 12.9 10^3/uL (4.0-10.0)
[2024-05-21 06:03] LABS: CREATININE FOR GFR 3.8 MG/DL (0.70-1.30); GLOMERULAR FILTRATION RATE 17.3 (>49); POTASSIUM SERUM 4.7 MMOL/L (3.5-5.1)
[2024-05-22] VITALS (8 sets, daily range): BP systolic 91–119; BP diastolic 63–88; TEMP 97.7–99.1; O2SAT 97–100
[2024-05-22] MEDS ORDERED: HEPARIN 1,000UNITS/ML 10ML VIAL (FOR RADIOLOGY & DIALYSIS ONLY) XX SCH (06:00)
[2024-05-22] MEDS ORDERED: SODIUM CHLORIDE 0.9% 1000 ML IV PRN (06:00)
[2024-05-22] MEDS ORDERED: HEPARIN 1,000UNITS/ML 10ML VIAL (FOR RADIOLOGY & DIALYSIS ONLY) IV PRN (06:00)
[2024-05-22 06:03] LABS: HEMATOCRIT 36.3 % (42.0-52.0); HEMOGLOBIN 11.2 g/dl (13.5-17.5); MEAN CORPUSCULAR HGB CONC 30.9 g/dl (32.0-36.5); PLATELET COUNT, AUTOMATED 197 10^3/uL (150-450); RED BLOOD COUNT 3.86 10^6/uL (4.30-6.10)
[2024-05-22 06:40] LABS: CALCIUM LEVEL 8.3 MG/DL (8.3-10.6); CREATININE FOR GFR 5.1 MG/DL (0.70-1.30); GLOMERULAR FILTRATION RATE 12.3 (>49); POTASSIUM SERUM 5.9 MMOL/L (3.5-5.1)
[2024-05-22] MEDS: oxyCODONE 5MG TAB PO ONE (10:40)
[2024-05-23 03:10] VITALS: BP 107/76; TEMP 98.2; O2SAT 100
[2024-05-23 04:35] LABS: HEMATOCRIT 32.9 % (42.0-52.0); HEMOGLOBIN 10.4 g/dl (13.5-17.5); MEAN CORPUSCULAR HEMOGLOBIN 28.9 pg (27.0-33.0); MEAN CORPUSCULAR HGB CONC 31.6 g/dl (32.0-36.5); MEAN CORPUSCULAR VOLUME 91.4 fl (80.0-96.0); PLATELET COUNT, AUTOMATED 217 10^3/uL (150-450); WHITE BLOOD COUNT 10.8 10^3/uL (4.0-10.0)
[2024-05-23 05:14] LABS: CALCIUM LEVEL 8.2 MG/DL (8.3-10.6); CREATININE FOR GFR 4.05 MG/DL (0.70-1.30); POTASSIUM SERUM 5.2 MMOL/L (3.5-5.1)
[2024-05-23] MEDS ORDERED: SODIUM CHLORIDE 0.9% 1000 ML IV PRN (07:20)
[2024-05-23] MEDS ORDERED: HEPARIN 1,000UNITS/ML 10ML VIAL (FOR RADIOLOGY & DIALYSIS ONLY) IV PRN (07:20)
[2024-05-23 07:59] VITALS: BP 130/90; TEMP 98.1; O2SAT 99
[2024-05-23] MEDS: HEPARIN 1,000UNITS/ML 10ML VIAL (FOR RADIOLOGY & DIALYSIS ONLY) XX SCH (10:37)
[2024-05-23 12:39] VITALS: BP 122/70; TEMP 97.3; O2SAT 94
[2024-05-23] MEDS: oxyCODONE 5MG TAB PO PRN (13:17)
[2024-05-23 16:14] VITALS: BP 103/67; TEMP 97.6; O2SAT 97
[2024-05-23 20:02] VITALS: BP 103/55; TEMP 98.2; O2SAT 99
[2024-05-24] VITALS: BP 104/75; TEMP 97.2; O2SAT 96
[2024-05-24 03:45] VITALS: BP 105/79; TEMP 97; O2SAT 93
[2024-05-24] MEDS ORDERED: HEPARIN 1,000UNITS/ML 10ML VIAL (FOR RADIOLOGY & DIALYSIS ONLY) IV PRN (06:00)
[2024-05-24] MEDS ORDERED: LIDOCAINE 1% SDV 5ML VIAL SC PRN (06:00)
[2024-05-24] MEDS ORDERED: SODIUM CHLORIDE 0.9% 1000 ML IV PRN (06:00)
[2024-05-24] MEDS ORDERED: HEPARIN 1,000UNITS/ML 10ML VIAL (FOR RADIOLOGY & DIALYSIS ONLY) XX SCH (06:00)
[2024-05-24 07:50] LABS: HEMATOCRIT 33.9 % (42.0-52.0); HEMOGLOBIN 10.7 g/dl (13.5-17.5); MEAN CORPUSCULAR HEMOGLOBIN 29.3 pg (27.0-33.0); MEAN CORPUSCULAR HGB CONC 31.6 g/dl (32.0-36.5); MEAN CORPUSCULAR VOLUME 92.9 fl (80.0-96.0); PLATELET COUNT, AUTOMATED 243 10^3/uL (150-450); RED BLOOD COUNT 3.65 10^6/uL (4.30-6.10); WHITE BLOOD COUNT 8.7 10^3/uL (4.0-10.0)
[2024-05-24 08:00] VITALS: BP 107/77; TEMP 98.2; O2SAT 96
[2024-05-24 08:15] LABS: CALCIUM LEVEL 8.3 MG/DL (8.3-10.6); CREATININE FOR GFR 3.76 MG/DL (0.70-1.30); GLOMERULAR FILTRATION RATE 17.5 (>49); POTASSIUM SERUM 5.2 MMOL/L (3.5-5.1)
[2024-05-24] MEDS ORDERED: ELIQ5TAB PO (10:06)
[2024-05-24 12:00] VITALS: BP 114/60; TEMP 98.3; O2SAT 97
[2024-05-24 16:48] VITALS: BP 102/76; TEMP 97.6; O2SAT 99
[2024-05-24] MEDS: PATIROMER SORBITEX CALCIUM 8.4 GM POWDER PACKET (VELTASSA) PO SCH (16:59)
[2024-05-24 20:00] VITALS: BP 107/73; TEMP 97.3; O2SAT 99
[2024-05-24] MEDS: ATORVASTATIN 20 MG TAB PO SCH (21:44)
[2024-05-25] VITALS (7 sets, daily range): BP systolic 100–121; BP diastolic 69–88; TEMP 96.9–98.3; O2SAT 94–99
[2024-05-25 06:19] LABS: HEMATOCRIT 33.9 % (42.0-52.0); HEMOGLOBIN 10.7 g/dl (13.5-17.5); MEAN CORPUSCULAR HEMOGLOBIN 28.8 pg (27.0-33.0); MEAN CORPUSCULAR HGB CONC 31.6 g/dl (32.0-36.5); MEAN CORPUSCULAR VOLUME 91.4 fl (80.0-96.0); PLATELET COUNT, AUTOMATED 235 10^3/uL (150-450); RED BLOOD COUNT 3.71 10^6/uL (4.30-6.10); WHITE BLOOD COUNT 9.4 10^3/uL (4.0-10.0)
[2024-05-25 07:05] LABS: CALCIUM LEVEL 8.5 MG/DL (8.3-10.6); CREATININE FOR GFR 3.36 MG/DL (0.70-1.30); GLOMERULAR FILTRATION RATE 19.9 (>49); POTASSIUM SERUM 5.3 MMOL/L (3.5-5.1)
[2024-05-25] MEDS: SILVER SULFADIAZINE 1% CR 50 GM JAR TOP SCH (09:00)
[2024-05-25] MEDS: LEVEMIR (INSULIN DETEMIR) 1 UNITS/0.01ML SC SCH (21:00)
[2024-05-25] MEDS: AMIODARONE 200 MG TAB (PACERONE) PO SCH (21:42)
[2024-05-26 04:00] VITALS: BP 125/58; TEMP 97.1; O2SAT 96
[2024-05-26 05:42] LABS: HEMATOCRIT 32.7 % (42.0-52.0); HEMOGLOBIN 10.3 g/dl (13.5-17.5); MEAN CORPUSCULAR HEMOGLOBIN 28.6 pg (27.0-33.0); MEAN CORPUSCULAR HGB CONC 31.5 g/dl (32.0-36.5); MEAN CORPUSCULAR VOLUME 90.8 fl (80.0-96.0); PLATELET COUNT, AUTOMATED 241 10^3/uL (150-450); WHITE BLOOD COUNT 9.6 10^3/uL (4.0-10.0)
[2024-05-26] MEDS ORDERED: HEPARIN 1,000UNITS/ML 10ML VIAL (FOR RADIOLOGY & DIALYSIS ONLY) IV PRN (06:00)
[2024-05-26] MEDS ORDERED: LIDOCAINE 1% SDV 5ML VIAL SC PRN (06:00)
[2024-05-26] MEDS ORDERED: SODIUM CHLORIDE 0.9% 1000 ML IV PRN (06:00)
[2024-05-26] MEDS ORDERED: HEPARIN 1,000UNITS/ML 10ML VIAL (FOR RADIOLOGY & DIALYSIS ONLY) XX SCH (06:00)
[2024-05-26 06:16] LABS: CALCIUM LEVEL 8.5 MG/DL (8.3-10.6); CREATININE FOR GFR 5.13 MG/DL (0.70-1.30); GLOMERULAR FILTRATION RATE 12.2 (>49)
[2024-05-26 08:42] VITALS: BP 115/71; O2SAT 99
[2024-05-26 12:00] VITALS: BP 149/70; TEMP 97.6; O2SAT 92
[2024-05-26] MEDS: PATIROMER SORBITEX CALCIUM 8.4 GM POWDER PACKET (VELTASSA) PO SCH (12:00)
[2024-05-26] MEDS: DOCUSATE SODIUM 100MG CAPSULE PO SCH (13:25)
[2024-05-26 16:00] VITALS: BP 111/76; TEMP 97.5; O2SAT 94
[2024-05-26 19:50] VITALS: BP 98/71; TEMP 97.7; O2SAT 95
[2024-05-27 03:32] VITALS: BP 120/77; TEMP 97.5; O2SAT 92
[2024-05-27 05:09] LABS: HEMATOCRIT 34.1 % (42.0-52.0); HEMOGLOBIN 10.8 g/dl (13.5-17.5); MEAN CORPUSCULAR HEMOGLOBIN 28.8 pg (27.0-33.0); MEAN CORPUSCULAR HGB CONC 31.7 g/dl (32.0-36.5); MEAN CORPUSCULAR VOLUME 90.9 fl (80.0-96.0); PLATELET COUNT, AUTOMATED 266 10^3/uL (150-450); RED BLOOD COUNT 3.75 10^6/uL (4.30-6.10); WHITE BLOOD COUNT 8.6 10^3/uL (4.0-10.0)
[2024-05-27 05:39] LABS: CALCIUM LEVEL 8.3 MG/DL (8.3-10.6); CREATININE FOR GFR 3.8 MG/DL (0.70-1.30); GLOMERULAR FILTRATION RATE 17.3 (>49); POTASSIUM SERUM 4.5 MMOL/L (3.5-5.1)
[2024-05-27 07:44] VITALS: BP 111/69; TEMP 97.8; O2SAT 94
[2024-05-27 10:00] VITALS: BP 129/95
[2024-05-27] MEDS ORDERED: METOPROLOL TART 50 MG TAB PO ONE (10:40)
[2024-05-27] MEDS: METOPROLOL TART 50 MG TAB PO ONE (10:56)
[2024-05-27 15:50] VITALS: BP 103/71; TEMP 98.3; O2SAT 96
[2024-05-27 20:09] VITALS: BP 119/69; TEMP 98.3; O2SAT 96
[2024-05-27 21:47] VITALS: BP 96/57; O2SAT 95
[2024-05-28 04:18] VITALS: BP 90/60; TEMP 97.4; O2SAT 94
[2024-05-28] MEDS ORDERED: LIDOCAINE 1% SDV 5ML VIAL SC PRN (06:00)
[2024-05-28] MEDS ORDERED: HEPARIN 1,000UNITS/ML 10ML VIAL (FOR RADIOLOGY & DIALYSIS ONLY) IV PRN (06:00)
[2024-05-28] MEDS ORDERED: SODIUM CHLORIDE 0.9% 1000 ML IV PRN (06:00)
[2024-05-28 06:36] LABS: BASO # 0.1 10^3/uL (0.0-0.2); BASO % 0.6 % (0.0-1.0); EOS % 0.4 % (0.0-3.0); HEMATOCRIT 32.7 % (42.0-52.0); HEMOGLOBIN 10.5 g/dl (13.5-17.5); LYMPH # 0.9 10^3/uL (1.5-5.0); LYMPH % 10.1 % (24.0-44.0); MEAN CORPUSCULAR HEMOGLOBIN 29.2 pg (27.0-33.0); MEAN CORPUSCULAR HGB CONC 32.1 g/dl (32.0-36.5); MEAN CORPUSCULAR VOLUME 90.8 fl (80.0-96.0); MONO # 1.1 10^3/uL (0.0-0.8); MONO % 11.9 % (2.0-8.0); NEUTROPHILS # 6.9 10^3/uL (1.5-8.5); NEUTROPHILS % 76.2 % (36.0-66.0); PLATELET COUNT, AUTOMATED 256 10^3/uL (150-450)
[2024-05-28 07:05] LABS: CALCIUM LEVEL 8.2 MG/DL (8.3-10.6); CREATININE FOR GFR 5.9 MG/DL (0.70-1.30); GLOMERULAR FILTRATION RATE 10.4 (>49); POTASSIUM SERUM 4.5 MMOL/L (3.5-5.1)
[2024-05-28 08:01] VITALS: BP 125/77
[2024-05-28] MEDS: METOPROLOL SUCC (TopROL XL) 50MG **XL** TAB PO SCH (08:01)
[2024-05-28] MEDS: HEPARIN 1,000UNITS/ML 10ML VIAL (FOR RADIOLOGY & DIALYSIS ONLY) XX SCH (10:17)
[2024-05-28] MEDS ORDERED: ATOR1TAB21 PO (12:03)
[2024-05-28] MEDS ORDERED: METO1TAB7 PO (12:03)
[2024-05-28] MEDS ORDERED: INSULADS INJ (12:03)
[2024-05-28] MEDS ORDERED: AMIO200T49 PO (12:03)
[2024-05-28] MEDS ORDERED: PANT40TA29 PO (12:03)
[2024-05-28] MEDS ORDERED: MIDO10TA3 PO (12:07)
[2024-05-28] MEDS ORDERED: INSU1MIS20 SC (12:17)
[2024-05-28] MEDS ORDERED: LANC30MI XX (12:17)
[2024-05-28] MEDS ORDERED: GLUC1TES2 XX (12:17)
[2024-05-28] MEDS ORDERED: PEN-308 SC (12:17)
[2024-05-28] MEDS ORDERED: ALCOPAD25 TOP (12:17)
[2024-05-28] MEDS ORDERED: BLOOKIT21 XX (12:17)
[2024-05-28] MEDS ORDERED: LANTINJ4 SC (12:39)
[2024-05-28 12:49] VITALS: BP 110/82; TEMP 97.2; O2SAT 96
[2024-05-28 13:48] VITALS: BP 99/66
== END 2024-05-28 16:28 | disposition home health service (06) | DRG 637 ==
LOC: M ED 04:02 → M ED INP 10:55 → M ICU 15:22 → M PCU 05-17 12:23
PROVIDERS: ADMIT Internal Medicine Pulmonary Disease; ATTEND Student in an Organized Health Care Education/Training Program
PROC: 05HM33Z Insertion of Infusion Device into Right Internal Jugular Vein, Percutaneous Approach (ICD-10-PCS; 2024-05-10)
PROC: 0JH63XZ Insertion of Tunneled Vascular Access Device into Chest Subcutaneous Tissue and Fascia, Percutaneous Approach (ICD-10-PCS; 2024-05-19)
PROC: 02HV33Z Insertion of Infusion Device into Superior Vena Cava, Percutaneous Approach (ICD-10-PCS; principal; 2024-05-19 13:00)
DX: E11.10 Type 2 diabetes mellitus with ketoacidosis without coma (principal); R57.0 Cardiogenic shock; K72.00 Acute and subacute hepatic failure without coma; I50.43 Acute on chronic combined systolic (congestive) and diastolic (congestive) heart failure; E87.1 Hypo-osmolality and hyponatremia; I24.89 Other forms of acute ischemic heart disease; N17.9 Acute kidney failure, unspecified; I42.8 Other cardiomyopathies; I13.0 Hypertensive heart and chronic kidney disease with heart failure and stage 1 through stage 4 chronic kidney disease, or unspecified chronic kidney disease; I48.19 Other persistent atrial fibrillation; H40.9 Unspecified glaucoma; K44.9 Diaphragmatic hernia without obstruction or gangrene; K22.70 Barrett's esophagus without dysplasia; E87.5 Hyperkalemia; G47.33 Obstructive sleep apnea (adult) (pediatric); R74.01 Elevation of levels of liver transaminase levels; K40.20 Bilateral inguinal hernia, without obstruction or gangrene, not specified as recurrent; E11.51 Type 2 diabetes mellitus with diabetic peripheral angiopathy without gangrene; E83.41 Hypermagnesemia; R00.0 Tachycardia, unspecified; K21.9 Gastro-esophageal reflux disease without esophagitis; I83.019 Varicose veins of right lower extremity with ulcer of unspecified site; I83.029 Varicose veins of left lower extremity with ulcer of unspecified site; E11.22 Type 2 diabetes mellitus with diabetic chronic kidney disease; N18.32 Chronic kidney disease, stage 3b; E87.70 Fluid overload, unspecified; I50.82 Biventricular heart failure; D69.6 Thrombocytopenia, unspecified; D63.1 Anemia in chronic kidney disease; Z91.148 Patient's other noncompliance with medication regimen for other reason; Z79.899 Other long term (current) drug therapy; Z79.4 Long term (current) use of insulin; M19.90 Unspecified osteoarthritis, unspecified site; Z87.891 Personal history of nicotine dependence; I08.1 Rheumatic disorders of both mitral and tricuspid valves

== ENCOUNTER 2024-05-30 21:27 | Inpatient (IN) | payer MEDICARE ==
[~2024-05-30] VITALS: Ht 162.6 cm; Wt 83.6 kg
[~2024-05-30 21:27] MED LIST changes: +ATOR1TAB21 PO; +INSU1MIS20 SC; +INSULADS INJ; +MIDO10TA3 PO; +PEN-308 SC
[2024-05-30 22:55] LABS: HEMATOCRIT 37.9 % (42.0-52.0); HEMOGLOBIN 12.2 g/dl (13.5-17.5); MEAN CORPUSCULAR HEMOGLOBIN 28.8 pg (27.0-33.0); MEAN CORPUSCULAR HGB CONC 32.2 g/dl (32.0-36.5); MEAN CORPUSCULAR VOLUME 89.4 fl (80.0-96.0); PLATELET COUNT, AUTOMATED 329 10^3/uL (150-450); RED BLOOD COUNT 4.24 10^6/uL (4.30-6.10); WHITE BLOOD COUNT 10.6 10^3/uL (4.0-10.0)
[2024-05-30] MEDS: BISACODYL 10MG SUPP PR ONE (23:35)
[2024-05-30 23:52] LABS: CK-MB VALUE MASS 1.8 NG/ML (<3.6)
[2024-05-30 23:54] LABS: MB/CK RELATIVE INDEX 7.2 (< OR =4)
[2024-05-30 23:57] LABS: ALBUMIN 2.9 G/DL (3.2-5.2); BILIRUBIN,TOTAL 1.1 MG/DL (0.3-1.2); CREATININE FOR GFR 3.13 MG/DL (0.70-1.30); GLOMERULAR FILTRATION RATE 21.6 (>49); MAGNESIUM LEVEL 1.8 MG/DL (1.8-2.4); POTASSIUM SERUM 4.2 MMOL/L (3.5-5.1); TOTAL PROTEIN 8.4 G/DL (5.7-8.2)
[2024-05-31] MEDS ORDERED: MOM 30ML SUSPENSION UDC PO PRN (02:00)
[2024-05-31] MEDS ORDERED: GLUCOSE 4 GM CHEW PO PRN (02:00)
[2024-05-31] MEDS ORDERED: GLUCAGON INJ 1MG VIAL SC PRN (02:00)
[2024-05-31] MEDS ORDERED: DEXTROSE 50% 50ML SYRINGE IV PRN (02:00)
[2024-05-31] MEDS ORDERED: LANTINJ4 SC (03:46)
[2024-05-31] MEDS ORDERED: PANT40TA29 PO (03:46)
[2024-05-31] MEDS ORDERED: AMIO200T37 PO (03:46)
[2024-05-31] MEDS ORDERED: METO1TAB7 PO (03:46)
[2024-05-31] MEDS ORDERED: ATOR40TA75 PO (03:46)
[2024-05-31] MEDS ORDERED: MIDO10TA3 PO (03:46)
[2024-05-31] MEDS ORDERED: HOME MED LIST COMPLETE! XX SCH (03:50)
[2024-05-31 04:22] LABS: PROCALCITONIN 1.17 ng/ml
[2024-05-31 06:43] LABS: HEMATOCRIT 37.8 % (42.0-52.0); HEMOGLOBIN 11.8 g/dl (13.5-17.5); MEAN CORPUSCULAR HEMOGLOBIN 28.6 pg (27.0-33.0); MEAN CORPUSCULAR HGB CONC 31.2 g/dl (32.0-36.5); MEAN CORPUSCULAR VOLUME 91.5 fl (80.0-96.0); PLATELET COUNT, AUTOMATED 313 10^3/uL (150-450); RED BLOOD COUNT 4.13 10^6/uL (4.30-6.10); WHITE BLOOD COUNT 10.5 10^3/uL (4.0-10.0)
[2024-05-31 07:17] LABS: ALBUMIN 2.9 G/DL (3.2-5.2); CALCIUM LEVEL 9.3 MG/DL (8.3-10.6); CREATININE FOR GFR 4.18 MG/DL (0.70-1.30); GLOMERULAR FILTRATION RATE 15.5 (>49); POTASSIUM SERUM 4.1 MMOL/L (3.5-5.1); TOTAL PROTEIN 8.5 G/DL (5.7-8.2)
[2024-05-31] MEDS: INSULIN LISPRO (NovoLOG) PER UNIT SC SCH ×2 (07:27→20:18)
[2024-05-31] MEDS: MIRALAX *UNIT DOSE* 17GM PACKET PO SCH (07:41)
[2024-05-31] MEDS: BISACODYL 5MG TAB PO SCH (07:42)
[2024-05-31] MEDS: METOPROLOL SUCC (TopROL XL) 50MG **XL** TAB PO SCH (09:00)
[2024-05-31] MEDS ORDERED: AMIODARONE 200 MG TAB (PACERONE) PO SCH (09:00)
[2024-05-31] MEDS: APIXABAN 5 MG TAB (ELIQUIS) PO SCH (09:46)
[2024-05-31] MEDS: AMIODARONE 200 MG TAB (PACERONE) PO SCH (09:47)
[2024-05-31] MEDS: PANTOPRAZOLE 40MG TAB (PROTONIX) PO SCH (09:47)
[2024-05-31] MEDS: DIGOXIN 0.125 MG TAB PO SCH (11:47)
[2024-05-31] MEDS: MIDODRINE 5 MG TAB PO SCH (11:47)
[2024-05-31 16:50] VITALS: BP 124/78; TEMP 97.7; O2SAT 100
[2024-05-31 18:12] VITALS: BP 110/58
[2024-05-31 19:16] VITALS: BP 114/67; TEMP 98; O2SAT 99
[2024-05-31] MEDS: ATORVASTATIN 20 MG TAB PO SCH (20:06)
[2024-05-31] MEDS: LEVEMIR (INSULIN DETEMIR) 1 UNITS/0.01ML SC SCH (20:38)
[2024-05-31] MEDS: ACETAMINOPHEN *IV* 1,000 MG in IV 1 EA IV ONE (21:32)
[2024-05-31 23:06] VITALS: BP 97/63; TEMP 97.8; O2SAT 98
[2024-06-01] MEDS: ACETAMINOPHEN 325 MG TAB PO PRN (02:33)
[2024-06-01 03:19] VITALS: BP 95/64; TEMP 98.2; O2SAT 96
[2024-06-01 07:25] VITALS: BP 106/65; TEMP 97.5; O2SAT 95
[2024-06-01 08:34] LABS: DIGOXIN LEVEL 0.9 NG/ML (0.8-2.0)
[2024-06-01 08:44] LABS: CALCIUM LEVEL 8.9 MG/DL (8.3-10.6); CREATININE FOR GFR 5.89 MG/DL (0.70-1.30); GLOMERULAR FILTRATION RATE 10.4 (>49); POTASSIUM SERUM 4.6 MMOL/L (3.5-5.1)
[2024-06-01 09:06] VITALS: BP 106/65
[2024-06-01] MEDS: AMIODARONE 200 MG TAB (PACERONE) PO SCH (09:07)
[2024-06-01] MEDS: FLUBLOK(EGGFREE) TRIVAL(24-25) VACCINE PF 0.5ML SYRINGE 18YRS & OLDER IM.IMMUN ONE (09:11)
[2024-06-01] MEDS ORDERED: AMIO200T49 PO (09:56)
[2024-06-01] MEDS ORDERED: DIGO0.123 PO (09:56)
== END 2024-06-01 13:10 | disposition home health service (06) | DRG 308 ==
LOC: M ED 21:27 → M ED INP 05-31 01:56 → M PCU 05-31 16:41
PROVIDERS: ADMIT Student in an Organized Health Care Education/Training Program; ATTEND Student in an Organized Health Care Education/Training Program
DX: I48.91 Unspecified atrial fibrillation (principal); K72.00 Acute and subacute hepatic failure without coma; N18.6 End stage renal disease; I50.22 Chronic systolic (congestive) heart failure; I13.2 Hypertensive heart and chronic kidney disease with heart failure and with stage 5 chronic kidney disease, or end stage renal disease; E11.22 Type 2 diabetes mellitus with diabetic chronic kidney disease; G47.33 Obstructive sleep apnea (adult) (pediatric); I73.9 Peripheral vascular disease, unspecified; E11.51 Type 2 diabetes mellitus with diabetic peripheral angiopathy without gangrene; D64.9 Anemia, unspecified; I42.9 Cardiomyopathy, unspecified; K21.9 Gastro-esophageal reflux disease without esophagitis; H40.9 Unspecified glaucoma; M19.90 Unspecified osteoarthritis, unspecified site; I83.019 Varicose veins of right lower extremity with ulcer of unspecified site; I83.029 Varicose veins of left lower extremity with ulcer of unspecified site; Z79.01 Long term (current) use of anticoagulants; Z79.4 Long term (current) use of insulin; Z79.899 Other long term (current) drug therapy; Z99.2 Dependence on renal dialysis

== ENCOUNTER → 2024-06-19 | Outpatient (REF) | payer MEDICARE ==
[~2024-06-19] MED LIST changes: +AMIO200T37 PO; +GLIP-318 PO; +GLIP-320 PO; -GLIP10TA18 PO; -GLIP5TAB20 PO
[2024-06-19 13:57] LABS: BASO # 0.1 10^3/uL (0.0-0.2); EOS # 0.2 10^3/uL (0.0-0.5); EOS % 1.7 % (0.0-3.0); HEMATOCRIT 30.7 % (42.0-52.0); HEMOGLOBIN 9.5 g/dl (13.5-17.5); LYMPH # 1.7 10^3/uL (1.5-5.0); LYMPH % 14.7 % (24.0-44.0); MEAN CORPUSCULAR HEMOGLOBIN 28.6 pg (27.0-33.0); MEAN CORPUSCULAR HGB CONC 30.9 g/dl (32.0-36.5); MEAN CORPUSCULAR VOLUME 92.5 fl (80.0-96.0); MONO # 1.2 10^3/uL (0.0-0.8); MONO % 10.6 % (2.0-8.0); NEUTROPHILS # 8.1 10^3/uL (1.5-8.5); NEUTROPHILS % 70.9 % (36.0-66.0); PLATELET COUNT, AUTOMATED 253 10^3/uL (150-450); RED BLOOD COUNT 3.32 10^6/uL (4.30-6.10); WHITE BLOOD COUNT 11.4 10^3/uL (4.0-10.0)
[2024-06-19 14:03] LABS: BILIRUBIN,TOTAL 0.7 MG/DL (0.3-1.2); CALCIUM LEVEL 9.3 MG/DL (8.3-10.6); CHOLESTEROL RISK RATIO 4.45 (<5); CREATININE FOR GFR 3.13 MG/DL (0.70-1.30); GLOMERULAR FILTRATION RATE 21.6 (>49); HDL CHOLESTEROL 24.9 MG/DL (>40); LDL CHOLESTEROL 46.9 MG/DL (<100); MAGNESIUM LEVEL 1.9 MG/DL (1.8-2.4); NON-HDL-C 86.1 MG/DL; POTASSIUM SERUM 4.6 MMOL/L (3.5-5.1); TOTAL PROTEIN 8.2 G/DL (5.7-8.2)
[2024-06-19 14:06] LABS: THYROID STIMULATING HORMONE 7.25 uIU/ML (0.55-4.78)
== END ==
LOC: M LAB REF 12:37
PROVIDERS: ATTEND Nurse Practitioner Family
DX: E66.9 Obesity, unspecified (principal); Z79.899 Other long term (current) drug therapy

== ENCOUNTER 2024-07-26 21:36 | Emergency (ER) | payer MEDICARE ==
[~2024-07-26] VITALS: Ht 162.6 cm; Wt 98.1 kg
[2024-07-26 22:19] LABS: BASO # 0.2 10^3/uL (0.0-0.2); BASO % 1.2 % (0.0-1.0); EOS # 0.1 10^3/uL (0.0-0.5); EOS % 0.9 % (0.0-3.0); HEMATOCRIT 32.6 % (42.0-52.0); HEMOGLOBIN 9.7 g/dl (13.5-17.5); LYMPH # 1.7 10^3/uL (1.5-5.0); LYMPH % 11.2 % (24.0-44.0); MEAN CORPUSCULAR HEMOGLOBIN 31.3 pg (27.0-33.0); MEAN CORPUSCULAR HGB CONC 29.8 g/dl (32.0-36.5); MEAN CORPUSCULAR VOLUME 105.2 fl (80.0-96.0); MONO # 1.9 10^3/uL (0.0-0.8); MONO % 12.6 % (2.0-8.0); NEUTROPHILS # 10.9 10^3/uL (1.5-8.5); NEUTROPHILS % 73.4 % (36.0-66.0); PLATELET COUNT, AUTOMATED 231 10^3/uL (150-450); WHITE BLOOD COUNT 14.8 10^3/uL (4.0-10.0)
[2024-07-26 22:34] LABS: ALBUMIN 3.1 G/DL (3.2-5.2); BILIRUBIN,TOTAL 0.9 MG/DL (0.3-1.2); CALCIUM LEVEL 9.2 MG/DL (8.3-10.6); CREATININE FOR GFR 4.32 MG/DL (0.70-1.30); GLOMERULAR FILTRATION RATE 14.7 (>49); POTASSIUM SERUM 5.4 MMOL/L (3.5-5.1); TOTAL PROTEIN 7.5 G/DL (5.7-8.2)
[2024-07-26 22:52] LABS: INR 1.62; PARTIAL THROMBOPLASTIN TIME 36.5 SECONDS (24.8-34.2); PROTHROMBIN TIME 19.5 SECONDS (12.5-14.5)
[2024-07-26 23:04] LABS: ACETONE/KETONE 0.31 MMOL/L (0.02-0.27)
[2024-07-26 23:08] LABS: VENOUS BASE EXCESS -1.3 (-2.0-2.0); VENOUS HCO3 24.6 MMOL/L (23.0-27.0); VENOUS PARTIAL PRESSURE CO2 46.4 mmHg (38.0-50.0); VENOUS PARTIAL PRESSURE O2 49.2 mmHg (30.0-50.0); VENOUS PH 7.342 UNITS (7.330-7.430)
[2024-07-26] MEDS ORDERED: INSU100I60 SC (23:59)
[2024-07-26] MEDS ORDERED: ELIQ2.5T PO (23:59)
[2024-07-26] MEDS ORDERED: METO200T15 PO (23:59)
[2024-07-26] MEDS ORDERED: VENTAER INH (23:59)
[2024-07-26] MEDS ORDERED: AMIO200T37 PO (23:59)
[2024-07-26] MEDS ORDERED: ACET-683 PO (23:59)
[2024-07-27] MEDS ORDERED: XALA0.007 OU (00:08)
[2024-07-27] MEDS ORDERED: EQ S0.65 NARES (00:08)
[2024-07-27] MEDS ORDERED: FARX1TAB5 PO (00:21)
[2024-07-27] MEDS: PATIROMER SORBITEX CALCIUM 8.4 GM POWDER PACKET (VELTASSA) PO ONE (00:25)
[2024-07-27] MEDS ORDERED: HOME MED LIST COMPLETE! XX SCH (00:25)
[2024-07-27 00:42] VITALS: BP 104/63; TEMP 96.9; O2SAT 100
== END 2024-07-27 00:48 | disposition home or self-care (01) ==
LOC: M ED 21:36
DX: E11.65 Type 2 diabetes mellitus with hyperglycemia (principal); E11.22 Type 2 diabetes mellitus with diabetic chronic kidney disease; N18.6 End stage renal disease; I11.0 Hypertensive heart disease with heart failure; I50.22 Chronic systolic (congestive) heart failure; Z99.2 Dependence on renal dialysis; E87.5 Hyperkalemia; Z79.4 Long term (current) use of insulin; I48.91 Unspecified atrial fibrillation; I25.10 Atherosclerotic heart disease of native coronary artery without angina pectoris; G47.33 Obstructive sleep apnea (adult) (pediatric); Z87.891 Personal history of nicotine dependence; R94.31 Abnormal electrocardiogram [ECG] [EKG]; Z79.899 Other long term (current) drug therapy

== ENCOUNTER 2024-10-29 17:25 | Inpatient (IN) | payer MEDICARE, MEDICAID ==
[~2024-10-29] VITALS: Ht 162.6 cm; Wt 103.4 kg
[2024-10-29] MEDS: APIXABAN 2.5 MG TAB PO ONE (01:30)
[~2024-10-29 17:25] MED LIST changes: +ACET-683 PO; -AMIO200T49 PO; +AMIO200T54 PO; +BACT400T PO; +DIVA-41 PO; -DIVA500T94 PO; +ELIQ2.5T PO; +EQ S0.65 NARES; +FARX1TAB5 PO; +INSU100I60 SC; +METO200T15 PO; +XALA0.007 OU
[2024-10-29 17:58] LABS: VENOUS BASE EXCESS -3.9 (-2.0-2.0); VENOUS HCO3 21.9 MMOL/L (23.0-27.0); VENOUS O2 SATURATION 41.9 % (60.0-80.0); VENOUS PARTIAL PRESSURE CO2 42.7 mmHg (38.0-50.0); VENOUS PARTIAL PRESSURE O2 28.7 mmHg (30.0-50.0); VENOUS PH 7.327 UNITS (7.330-7.430); VENOUS STANDARD HCO3 20.2 MMOL/L; VENOUS TOTAL CO2 23.2 MMOL/L (24.0-28.0)
[2024-10-29 18:00] LABS: BASO # 0.1 10^3/uL (0.0-0.2); BASO % 0.8 % (0.0-1.0); EOS # 0.2 10^3/uL (0.0-0.5); EOS % 1.8 % (0.0-3.0); LYMPH # 1.2 10^3/uL (1.5-5.0); LYMPH % 9.8 % (24.0-44.0); MONO # 1.1 10^3/uL (0.0-0.8); MONO % 9.0 % (2.0-8.0); NEUTROPHILS # 9.2 10^3/uL (1.5-8.5); NEUTROPHILS % 77.9 % (36.0-66.0); PLATELET COUNT, AUTOMATED 144 10^3/uL (150-450)
[2024-10-29 18:13] LABS: INR 1.22
[2024-10-29 18:29] LABS: CPK CREATINE PHOSPHOKINASE 30.0 U/L (46-171)
[2024-10-29 18:30] LABS: ALT/SGPT 14.0 U/L (7.0-40); AST/SGOT 11.0 U/L (<34); CALCIUM LEVEL 9.0 MG/DL (8.3-10.6); CARBON DIOXIDE LEVEL 26.0 MMOL/L (20-31); CHLORIDE LEVEL 89.0 MMOL/L (98-107); CK-MB VALUE MASS 2.7 NG/ML (<3.6); CREATININE FOR GFR 5.68 MG/DL (0.70-1.30); GLOMERULAR FILTRATION RATE 10.6 (>49); MB/CK RELATIVE INDEX 9.0 (< OR =4); POTASSIUM SERUM 3.4 MMOL/L (3.5-5.1); SODIUM LEVEL 132.0 MMOL/L (136-145)
[2024-10-29 18:32] LABS: THYROXINE (T4) 5.2 UG/DL (4.5-10.9)
[2024-10-29] MEDS: FUROSEMIDE 100 MG/10 ML VIAL IV ONE (19:13)
[2024-10-29] MEDS: METOPROLOL TARTRATE 100 MG TAB PO ONE (19:13)
[2024-10-29] MEDS ORDERED: HOME MED LIST COMPLETE! XX SCH (21:25)
[2024-10-29] MEDS ORDERED: AMIO400T2 PO (21:25)
[2024-10-29] MEDS ORDERED: PILL CUTTER 1 EACH XX PRN (21:55)
[2024-10-29] MEDS ORDERED: MOM 30 ML SUSPENSION UDC PO PRN (21:55)
[2024-10-29] MEDS: NS 500 ML IV ONE (22:07)
[2024-10-29] MEDS: AMIODARONE 200 MG TAB PO ONE (22:20)
[2024-10-30] MEDS: ONDANSETRON 4MG 2ML VIAL IV PRN (02:09)
[2024-10-30] MEDS ORDERED: GLUCAGON INJ 1 MG VIAL SC PRN (05:50)
[2024-10-30] MEDS: MAALOX 30 ML SUSP *UDC PO PRN (06:41)
[2024-10-30 07:37] LABS: PLATELET COUNT, AUTOMATED 143 10^3/uL (150-450)
[2024-10-30] MEDS: MIDODRINE 5 MG TAB PO SCH (08:00)
[2024-10-30 08:20] LABS: ALT/SGPT 11.0 U/L (7.0-40); AST/SGOT 12.0 U/L (<34); CALCIUM LEVEL 8.6 MG/DL (8.3-10.6); CARBON DIOXIDE LEVEL 24.0 MMOL/L (20-31); CHLORIDE LEVEL 91.0 MMOL/L (98-107); CREATININE FOR GFR 6.34 MG/DL (0.70-1.30); GLOMERULAR FILTRATION RATE 9.3 (>49); MAGNESIUM LEVEL 1.8 MG/DL (1.8-2.4); POTASSIUM SERUM 3.7 MMOL/L (3.5-5.1); SODIUM LEVEL 133.0 MMOL/L (136-145)
[2024-10-30 08:48] LABS: C REACTIVE PROTEIN QUANTITATIV 5.02 MG/DL (<1.0)
[2024-10-30] MEDS: INSULIN LISPRO (NovoLOG) PER UNIT SC SCH (08:48)
[2024-10-30] MEDS: APIXABAN 2.5 MG TAB PO SCH (08:49)
[2024-10-30] MEDS: DOCUSATE SODIUM 100 MG CAPSULE PO SCH (08:49)
[2024-10-30] MEDS: AMIODARONE 200 MG TAB PO SCH (08:49)
[2024-10-30] MEDS: DAPAGLIFLOZIN PROPANEDIOL 10 MG TABLET PO SCH (08:49)
[2024-10-30] MEDS: PANTOPRAZOLE 40MG TAB PO SCH (08:49)
[2024-10-30 09:04] LABS: ERYTHROCYTE SEDIMENTATION RATE 44 mm/hr (0-20)
[2024-10-30] MEDS: NS (Normal Saline) 0.9% 1,000 ML IV SCH (10:49)
[2024-10-30] MEDS: LIDOCAINE 1% MDV 20 ML VIAL SC SCH (10:49)
[2024-10-30] MEDS: ISOVUE-300 61% 100 ML VIAL IV SCH (10:50)
[2024-10-30] MEDS ORDERED: SODIUM CHLORIDE 0.9% 1000 ML IV PRN (10:50)
[2024-10-30] MEDS ORDERED: HEPARIN 1,000 UNITS/ML 10 ML VIAL (FOR RADIOLOGY & DIALYSIS ONLY) IV PRN (10:50)
[2024-10-30] MEDS: HEPARIN 1,000 UNITS/ML 10 ML VIAL (FOR RADIOLOGY & DIALYSIS ONLY) IV PRN (10:50)
[2024-10-30] MEDS: ceFAZolin SODIUM 2 GM in DEXTROSE 5% (D5W) ADV/MINI-BAG 50 ML IV ONE (10:51)
[2024-10-30] MEDS: MIDAZOLAM INJ 2 MG/2 ML VIAL IV PRN (10:52)
[2024-10-30 11:05] VITALS: BP 90/64; TEMP 96.6; O2SAT 96
[2024-10-30] MEDS: METOPROLOL SUCC. 100 MG *XL* TAB PO SCH (11:08)
[2024-10-30] MEDS ORDERED: NALOXONE INJ 0.4 MG/1 ML VIAL IV PRN (13:40)
[2024-10-30] MEDS: PERCOCET 5MG/325MG TAB PO ONE (14:01)
[2024-10-30] MEDS: HEPARIN 1,000 UNITS/ML 10 ML VIAL (FOR RADIOLOGY & DIALYSIS ONLY) XX SCH (15:54)
[2024-10-30 17:30] VITALS: BP 99/55; TEMP 96; O2SAT 100
[2024-10-30 20:00] VITALS: BP 87/50; TEMP 96.8; O2SAT 98
[2024-10-30] MEDS: ONDANSETRON 4MG ORAL DISINTEGRATING TAB PO ONE (20:14)
[2024-10-30] MEDS: ATORVASTATIN 20 MG TAB PO SCH (21:00)
[2024-10-30 23:32] VITALS: BP_SYST 68; BP_DIAS 53; BP_DIAS 58; TEMP 96.4; O2SAT 96
[2024-10-31] VITALS (10 sets, daily range): BP systolic 82–128; BP diastolic 52–90; TEMP 96.4–97.4; O2SAT 93–100
[2024-10-31] MEDS: MIDODRINE 5 MG TAB PO ONE (00:09)
[2024-10-31] MEDS: SODIUM CHLORIDE 0.9% 1000 ML IV STA (00:16)
[2024-10-31] MEDS: PERCOCET 5MG/325MG TAB PO ONE ×2 (01:08→13:27)
[2024-10-31] MEDS ORDERED: SODIUM CHLORIDE 0.9% 1000 ML IV PRN (06:00)
[2024-10-31] MEDS ORDERED: HEPARIN 1,000 UNITS/ML 10 ML VIAL (FOR RADIOLOGY & DIALYSIS ONLY) IV PRN (06:00)
[2024-10-31] MEDS ORDERED: PIPERACILLIN/TAZOBACTAM SOD 2.25 GM in DEXTROSE 5% (D5W) ADV/MINI-BAG 50 ML IV SCH (09:50)
[2024-10-31] MEDS: PIPERACILLIN/TAZOBACTAM SOD 4.5 GM in DEXTROSE 5% (D5W) ADV/MINI-BAG 50 ML IV SCH (11:00)
[2024-10-31] MEDS: ACETAMINOPHEN 500 MG TAB PO PRN (11:06)
[2024-10-31] MEDS: DARBEPOETIN 100 MCG/0.5 ML *DIALYSIS* SYRINGE IV SCH (12:53)
[2024-10-31] MEDS: HEPARIN 1,000 UNITS/ML 10 ML VIAL (FOR RADIOLOGY & DIALYSIS ONLY) XX SCH (12:53)
[2024-10-31] MEDS ORDERED: NALOXONE INJ 0.4 MG/1 ML VIAL IV PRN (13:05)
[2024-10-31] MEDS: LIDOCAINE 5% PATCH TD SCH (13:27)
[2024-10-31 16:37] LABS: BASO # 0.1 10^3/uL (0.0-0.2); BASO % 0.4 % (0.0-1.0); EOS # 0.0 10^3/uL (0.0-0.5); EOS % 0.1 % (0.0-3.0); LYMPH # 1.2 10^3/uL (1.5-5.0); LYMPH % 8.1 % (24.0-44.0); MONO # 1.3 10^3/uL (0.0-0.8); MONO % 8.8 % (2.0-8.0); NEUTROPHILS # 11.5 10^3/uL (1.5-8.5); NEUTROPHILS % 80.7 % (36.0-66.0); PLATELET COUNT, AUTOMATED 160 10^3/uL (150-450)
[2024-10-31 16:43] LABS: ERYTHROCYTE SEDIMENTATION RATE 43 mm/hr (0-20)
[2024-10-31 17:11] LABS: C REACTIVE PROTEIN QUANTITATIV 5.68 MG/DL (<1.0)
[2024-10-31 17:25] LABS: ALT/SGPT 49.0 U/L (7.0-40); AST/SGOT 120.0 U/L (<34); CALCIUM LEVEL 7.8 MG/DL (8.3-10.6); CARBON DIOXIDE LEVEL 26.0 MMOL/L (20-31); CHLORIDE LEVEL 95.0 MMOL/L (98-107); CREATININE FOR GFR 1.56 MG/DL (0.70-1.30); GLOMERULAR FILTRATION RATE 49.9 (>49); POTASSIUM SERUM 3.6 MMOL/L (3.5-5.1); SODIUM LEVEL 135.0 MMOL/L (136-145)
[2024-11-01] VITALS (9 sets, daily range): BP systolic 66–137; BP diastolic 33–69; TEMP 95.6–97.5; O2SAT 96–100
[2024-11-01] MEDS: GLUCOSE 4 GM CHEW PO PRN (03:27)
[2024-11-01] MEDS ORDERED: SODIUM CHLORIDE 0.9% 1000 ML IV PRN (06:00)
[2024-11-01] MEDS ORDERED: HEPARIN 1,000 UNITS/ML 10 ML VIAL (FOR RADIOLOGY & DIALYSIS ONLY) XX SCH (06:00)
[2024-11-01] MEDS: HEPARIN 1,000 UNITS/ML 10 ML VIAL (FOR RADIOLOGY & DIALYSIS ONLY) IV PRN (12:35)
[2024-11-01 12:51] LABS: BASO # 0.1 10^3/uL (0.0-0.2); BASO % 0.5 % (0.0-1.0); EOS # 0.1 10^3/uL (0.0-0.5); EOS % 0.3 % (0.0-3.0); LYMPH # 1.6 10^3/uL (1.5-5.0); LYMPH % 8.7 % (24.0-44.0); MONO # 1.8 10^3/uL (0.0-0.8); MONO % 9.7 % (2.0-8.0); NEUTROPHILS # 14.5 10^3/uL (1.5-8.5); NEUTROPHILS % 78.8 % (36.0-66.0); PLATELET COUNT, AUTOMATED 186 10^3/uL (150-450)
[2024-11-01 12:56] LABS: ERYTHROCYTE SEDIMENTATION RATE 41 mm/hr (0-20)
[2024-11-01] MEDS ORDERED: MEROPENEM 2 GM in SODIUM CHLORIDE 0.9% INJ 100 ML IV SCH (14:15)
[2024-11-01 14:56] LABS: ALT/SGPT 638.0 U/L (7.0-40); AST/SGOT 2449.0 U/L (<34); C REACTIVE PROTEIN QUANTITATIV 7.2 MG/DL (<1.0); CALCIUM LEVEL 8.6 MG/DL (8.3-10.6); CARBON DIOXIDE LEVEL 16.0 MMOL/L (20-31); CHLORIDE LEVEL 93.0 MMOL/L (98-107); CREATININE FOR GFR 3.63 MG/DL (0.70-1.30); GLOMERULAR FILTRATION RATE 18.1 (>49); POTASSIUM SERUM 5.2 MMOL/L (3.5-5.1); SODIUM LEVEL 135.0 MMOL/L (136-145)
[2024-11-01] MEDS: MEROPENEM 1 GM in IV 1 EA IV SCH (16:23)
[2024-11-01] MEDS: DEXTROSE 50% 50 ML SYRINGE IV PRN (16:23)
[2024-11-01] MEDS: VANCOMYCIN HCL 1,000 MG, VIAL MATE ADAPTER 1 EACH in NS 250 ML IV SCH (17:25)
[2024-11-01] MEDS: VANCOMYCIN HCL 500 MG in DEXTROSE 5% (D5W) MINI-BAG PLU 100 ML IV ONE (18:47)
[2024-11-01] MEDS: NS 500 ML IV ONE (20:26)
[2024-11-01 20:45] LABS: INR 3.42
[2024-11-01] MEDS: ACETYLCYSTEINE 14,700 MG in D5W 250 ML IV ONE (22:25)
[2024-11-01 22:42] LABS: MONO SCRN NEGATIVE (NEGATIVE)
[2024-11-01 23:00] LABS: ALT/SGPT 942.0 U/L (7.0-40); AST/SGOT 3366.0 U/L (<34); CALCIUM LEVEL 8.4 MG/DL (8.3-10.6); CARBON DIOXIDE LEVEL 16.0 MMOL/L (20-31); CHLORIDE LEVEL 93.0 MMOL/L (98-107); CREATININE FOR GFR 3.9 MG/DL (0.70-1.30); GLOMERULAR FILTRATION RATE 16.6 (>49); POTASSIUM SERUM 5.2 MMOL/L (3.5-5.1); SODIUM LEVEL 135.0 MMOL/L (136-145)
[2024-11-01 23:18] LABS: HEPATITIS C VIRUS ABY INDEX < 0.02 INDEX (<0.8)
[2024-11-01] MEDS: ACETYLCYSTEINE 4,900 MG in D5W 500 ML IV ONE (23:50)
[2024-11-02] VITALS (103 sets, daily range): BP systolic 70–129; BP diastolic 35–85; TEMP 97.1–99.3; O2SAT 81–100
[2024-11-02] MEDS ORDERED: NOREPINEPHRINE 4 MG IN D5W 250 ML IVBAG (16 MCG/ML) As Ordered ONE (00:07)
[2024-11-02] MEDS: NOREPINEPHRINE 4MG IN D5 250ML 4 MG in IV 1 EA IV SCH (00:16)
[2024-11-02] MEDS: LR 1,000 ML IV ONE (01:42)
[2024-11-02 02:31] LABS: ABG BASE EXCESS -16.4 (-2.0-2.0); ABG HCO3 9.0 MMOL/L (22.0-26.0); ABG O2 SATURATION 99.9 % (95.0-99.0); ABG PARTIAL PRESSURE CO2 21.0 mmHg (35.0-45.0); ABG PARTIAL PRESSURE O2 283.8 mmHg (75.0-100.0); ABG STANDARD HCO3 12.0 MMOL/L. (22.0-26.0); ABG TOTAL CO2 9.6 MMOL/L (23.0-31.0); ABG pH (ARTERIAL) 7.248 UNITS (7.350-7.450)
[2024-11-02] MEDS: ACETYLCYSTEINE 9,800 MG in D5W 1,000 ML IV ONE (03:55)
[2024-11-02 04:02] LABS: BASO # 0.1 10^3/uL (0.0-0.2); BASO % 0.6 % (0.0-1.0); EOS # 0.0 10^3/uL (0.0-0.5); EOS % 0.1 % (0.0-3.0); LYMPH # 1.5 10^3/uL (1.5-5.0); LYMPH % 8.4 % (24.0-44.0); MONO # 1.6 10^3/uL (0.0-0.8); MONO % 8.9 % (2.0-8.0); NEUTROPHILS # 14.4 10^3/uL (1.5-8.5); NEUTROPHILS % 79.3 % (36.0-66.0); PLATELET COUNT, AUTOMATED 183 10^3/uL (150-450)
[2024-11-02 04:23] LABS: PLATELET ESTIMATE NORMAL (NORMAL)
[2024-11-02 04:24] LABS: VANCOMYCIN RANDOM 18.9 UG/ML
[2024-11-02 04:46] LABS: ALT/SGPT 871.0 U/L (7.0-40); AST/SGOT 3292.0 U/L (<34); CALCIUM LEVEL 8.4 MG/DL (8.3-10.6); CARBON DIOXIDE LEVEL 13.0 MMOL/L (20-31); CHLORIDE LEVEL 90.0 MMOL/L (98-107); CREATININE FOR GFR 3.62 MG/DL (0.70-1.30); GLOMERULAR FILTRATION RATE 18.2 (>49); MAGNESIUM LEVEL 2.2 MG/DL (1.8-2.4); PHOSPHORUS LEVEL 8.6 MG/DL (2.4-5.1); POTASSIUM SERUM 5.7 MMOL/L (3.5-5.1); SODIUM LEVEL 133.0 MMOL/L (136-145)
[2024-11-02] MEDS: NS (Normal Saline) 0.9% 1,000 ML IV ONE (09:00)
[2024-11-02] MEDS ORDERED: PANTOPRAZOLE 40MG VIAL IV SCH (09:45)
[2024-11-02] MEDS: PATIROMER SORBITEX CALCIUM 8.4GM POWDER PACKET PO ONE (10:27)
[2024-11-02] MEDS: DEXTROSE 50% 50 ML SYRINGE IV STA (10:27)
[2024-11-02] MEDS: HumuLIN R (REGULAR) INSULIN (NovoLIN R) **100 U/ML** PER UNIT IV STA (10:28)
[2024-11-02] MEDS: PANTOPRAZOLE 40MG VIAL IV SCH (10:28)
[2024-11-02 11:16] LABS: SOURCE, BODY FLUID ASCITES
[2024-11-02 11:17] LABS: APPEARANCE, BODY FLUID CLEAR (CLEAR); ASCITES FL COLOR PALE YELLOW (COLORLESS)
[2024-11-02 11:56] LABS: SOURCE, BODY FLUID ALBUMIN ASCITES
[2024-11-02 12:01] LABS: SOURCE, BODY FLUID GLUCOSE ASCITES
[2024-11-02 12:02] LABS: SOURCE, BODY FLUID TOT PROTEIN ASCITES
[2024-11-02] MEDS: MIDODRINE 5 MG TAB NG SCH (14:06)
[2024-11-02 15:35] LABS: ALT/SGPT 782.0 U/L (7.0-40); AST/SGOT 2612.0 U/L (<34); CALCIUM LEVEL 7.7 MG/DL (8.3-10.6); CARBON DIOXIDE LEVEL 14.0 MMOL/L (20-31); CHLORIDE LEVEL 91.0 MMOL/L (98-107); CREATININE FOR GFR 4.2 MG/DL (0.70-1.30); GLOMERULAR FILTRATION RATE 15.2 (>49); POTASSIUM SERUM 4.9 MMOL/L (3.5-5.1); SODIUM LEVEL 132.0 MMOL/L (136-145)
[2024-11-02] MEDS: NS 500 ML IV ONE ×2 (16:15→17:09)
[2024-11-02] MEDS ORDERED: GLUCOSE 4 GM CHEW PO PRN (18:35)
[2024-11-02] MEDS ORDERED: DEXTROSE 50% 50 ML SYRINGE IV PRN (18:35)
[2024-11-02] MEDS: INSULIN LISPRO (NovoLOG) PER UNIT SC SCH (18:40)
[2024-11-02] MEDS: QUEtiapine FUMARATE 50MG TAB PO SCH (20:51)
[2024-11-02] MEDS: SODIUM BICARBONATE 150 MEQ in STERILE WATER LITER BAG 1,000 ML IV SCH (20:52)
[2024-11-03] VITALS (65 sets, daily range): BP systolic 76–115; BP diastolic 50–93; TEMP 98.8–99.3; O2SAT 85–99
[2024-11-03 06:05] LABS: BASO # 0.1 10^3/uL (0.0-0.2); BASO % 0.6 % (0.0-1.0); EOS # 0.2 10^3/uL (0.0-0.5); EOS % 1.5 % (0.0-3.0); LYMPH # 0.7 10^3/uL (1.5-5.0); LYMPH % 6.9 % (24.0-44.0); MONO # 0.7 10^3/uL (0.0-0.8); MONO % 7.1 % (2.0-8.0); NEUTROPHILS # 8.7 10^3/uL (1.5-8.5); NEUTROPHILS % 83.2 % (36.0-66.0); PLATELET COUNT, AUTOMATED 129 10^3/uL (150-450)
[2024-11-03 06:50] LABS: VANCOMYCIN RANDOM 17.1 UG/ML
[2024-11-03 07:32] LABS: ALT/SGPT 656.0 U/L (7.0-40); AST/SGOT 1528.0 U/L (<34); CALCIUM LEVEL 7.5 MG/DL (8.3-10.6); CARBON DIOXIDE LEVEL 22.0 MMOL/L (20-31); CHLORIDE LEVEL 89.0 MMOL/L (98-107); CREATININE FOR GFR 4.55 MG/DL (0.70-1.30); GLOMERULAR FILTRATION RATE 13.8 (>49); POTASSIUM SERUM 3.9 MMOL/L (3.5-5.1); SODIUM LEVEL 131.0 MMOL/L (136-145)
[2024-11-03] MEDS ORDERED: QUEtiapine FUMARATE 50MG TAB PO PRN (07:50)
[2024-11-03] MEDS: NS (Normal Saline) 0.9% 1,000 ML IV ONE (08:04)
[2024-11-03] MEDS: LACTULOSE 20 GM/30 ML SYRUP UDC PO ONE (09:07)
[2024-11-03] MEDS ORDERED: ADENOSINE 6 MG/2 ML INJECTION As Ordered ONE (10:03)
[2024-11-03] MEDS ORDERED: AMIODARONE HCL 360 MG/200 ML PREMIXED BAG As Ordered ONE (10:13)
[2024-11-03] MEDS: ADENOSINE 6 MG/2 ML INJECTION IV STA (10:14)
[2024-11-03] MEDS: AMIODARONE HCL 360 MG in IV 1 EA IV SCH ×2 (10:15→16:15)
[2024-11-03] MEDS ORDERED: SODIUM CHLORIDE 0.9% 1000 ML IV PRN (10:25)
[2024-11-03] MEDS ORDERED: HEPARIN 1,000 UNITS/ML 10 ML VIAL (FOR RADIOLOGY & DIALYSIS ONLY) IV PRN (10:25)
[2024-11-03] MEDS ORDERED: HEPARIN 1,000 UNITS/ML 10 ML VIAL (FOR RADIOLOGY & DIALYSIS ONLY) XX SCH (10:25)
[2024-11-03] MEDS: OLANZapine INTRAMUSCULAR 10MG VIAL IM ONE (14:25)
[2024-11-03] MEDS ORDERED: MORPHINE 10 MG/0.5 ML ORAL CONCENTRATE SOLUTION U/D SL PRN (15:20)
[2024-11-03] MEDS ORDERED: ONDANSETRON 4MG 2ML VIAL IV PRN (15:20)
[2024-11-03] MEDS: MORPHINE 2 MG/ML 1 ML VIAL IV PRN (16:24)
[2024-11-03] MEDS: ATROPINE SULFATE 1% OPHTH SOLN 2 ML BTL SL PRN (16:25)
[2024-11-03] MEDS: HYOSCYAMINE SULFATE 0.125 MG SUBL TABLET PO PRN (16:25)
[2024-11-03] MEDS: SCOPOLAMINE 1MG TRANSDERMAL PATCH TOP PRN (21:04)
[2024-11-06 14:29] LABS: BORRELIA SPECIES DNA NOT DETECTED (NOT DETECT)
== END 2024-11-04 04:53 | disposition expired | DRG 673 ==
LOC: M ED 17:25 → EDBD 17:25 → M ED INP 21:52 → M ICU 10-30 10:57 → M PCU 10-31 16:46 → M ICU 11-02 00:21
PROVIDERS: ADMIT Student in an Organized Health Care Education/Training Program; ATTEND Internal Medicine Pulmonary Disease
PROC: 02HV33Z Insertion of Infusion Device into Superior Vena Cava, Percutaneous Approach (ICD-10-PCS; 2024-10-30)
PROC: 0JH63XZ Insertion of Tunneled Vascular Access Device into Chest Subcutaneous Tissue and Fascia, Percutaneous Approach (ICD-10-PCS; principal; 2024-10-30 09:02)
PROC: 5A1D70Z Performance of Urinary Filtration, Intermittent, Less than 6 Hours Per Day (ICD-10-PCS; 2024-10-31)
PROC: 0W9G3ZZ Drainage of Peritoneal Cavity, Percutaneous Approach (ICD-10-PCS; 2024-11-02)
DX: T82.49XA Other complication of vascular dialysis catheter, initial encounter (principal); N18.6 End stage renal disease; G93.41 Metabolic encephalopathy; A41.9 Sepsis, unspecified organism; K72.00 Acute and subacute hepatic failure without coma; R65.21 Severe sepsis with septic shock; I13.2 Hypertensive heart and chronic kidney disease with heart failure and with stage 5 chronic kidney disease, or end stage renal disease; E87.20 Acidosis, unspecified; I50.22 Chronic systolic (congestive) heart failure; D68.9 Coagulation defect, unspecified; R18.8 Other ascites; I31.39 Other pericardial effusion (noninflammatory); E11.51 Type 2 diabetes mellitus with diabetic peripheral angiopathy without gangrene; D64.9 Anemia, unspecified; D69.6 Thrombocytopenia, unspecified; I48.91 Unspecified atrial fibrillation; K21.9 Gastro-esophageal reflux disease without esophagitis; G47.33 Obstructive sleep apnea (adult) (pediatric); M19.90 Unspecified osteoarthritis, unspecified site; R53.1 Weakness; E87.70 Fluid overload, unspecified; R00.0 Tachycardia, unspecified; K22.70 Barrett's esophagus without dysplasia; I95.9 Hypotension, unspecified; E55.9 Vitamin D deficiency, unspecified; K44.9 Diaphragmatic hernia without obstruction or gangrene; E87.5 Hyperkalemia; R57.0 Cardiogenic shock; Z79.01 Long term (current) use of anticoagulants; Z51.5 Encounter for palliative care; Y83.1 Surgical operation with implant of artificial internal device as the cause of abnormal reaction of the patient, or of later complication, without mention of misadventure at the time of the procedure